=== PATIENT | male | born 1935 | race Caucasian/White ===

== ENCOUNTER 2017-12-06 17:51 | Inpatient (IN) | payer OTHER ==
[2017-12-06] MEDS ORDERED: dilTIAZem HCL 125 MG/25 ML - 25 ML VIAL ONE (18:15)
[2017-12-06] MEDS ORDERED: dilTIAZem HCL 50 MG/10 ML - 10 ML VIAL IVPUSH ONE (19:15)
[2017-12-06] MEDS ORDERED: dilTIAZem HCL 50 MG/10 ML - 10 ML VIAL ONE (19:20)
[2017-12-06] MEDS ORDERED: ACETAMINOPHEN 325 MG TABLET (FP) ONE (19:30)
[2017-12-06] MEDS ORDERED: ACETAMINOPHEN 500 MG TABLET (FP) PO ONE (19:31)
[2017-12-06] MEDS ORDERED: SODIUM CHLORIDE 1,000 ML IV STA (19:32)
--- NOTE | 2017-12-06 19:47 | PDOC ---
Attending Attestation - Resident Resident Name: Matheus Mcmahon - ED Attending Attestation I have performed the following: I have examined & evaluated the patient, The case was reviewed & discussed with the resident, I agree w/resident's findings & plan - HPI HPI: 12/07/17 20:09 Agree with resident exam - Physicial Exam PE: 12/06/17 20:21 Pt has 2+ pitting edema of legs bilaterally. Pt has coxsackie virus in the throat; he admits to odynophagia, and pt is warm to the touch, so we got a rectal temp that demonstrates fever 100.5F - Medical Decision Making 12/06/17 20:20 Pt has pleural effusions at the costophrenic angles. His Neutrophil count is high, but overall WBC not high Stool guaiac is negative; pt reports black stools; doesn't seem to be blood related. 12/06/17 20:22 Pt is getting hydrated and antipyretics; we gave a touch of IV dilt, but will wait for the other measures to kick in before we give more. 12/07/17 04:34 Pt's HR came down to 100-110bpm wiith hydration and antipyretics. We will hold off on further diltiazem. 12/07/17 04:35 Pt will be admitted for new onset atrial fibrillation
--- NOTE | 2017-12-06 19:57 | PDOC ---
History of Present Illness - General Chief Complaint: Tachycardia Stated Complaint: PALPITATIONS Time Seen by Provider: 12/06/17 19:10 History Source: Patient Exam Limitations: No Limitations - History of Present Illness Initial Comments: 12/06/17 19:52 Patient is an 82M with no significant medical history here today complaining of 2-3 weeks of weakness, shortness of breath, decreased exercise tolerance and diarrhea. He states that he's had chronic diarrhea since returning from [facility]. His daughter states that he does not frequently go to the doctor. He reports having associated edema in his legs bilaterally. He denies chest pain, palpitations. He does not remember feeling acutely worse in the past 48 hours. Denies blood in diarrhea. Endorses fevers, chills, cough. Patient was noted to have HR in 140s in triage, brought back to ED. Past History - Past Medical History Allergies/Adverse Reactions: Allergies Allergy/AdvReac Type Severity Reaction Status Date / Time No Known Allergies Allergy Verified 12/06/17 18:32 Home Medications: Ambulatory Orders NK [No Known Home Medication] 12/06/17 COPD: No - Suicide/Smoking/Psychosocial Hx Smoking History: Never smoked Review of Systems - Review of Systems Comments:: 12/06/17 19:59 GENERAL/CONSTITUTIONAL: Positive for fever or chills. No weakness. HEAD, EYES, EARS, NOSE AND THROAT: No change in vision. No sore throat. CARDIOVASCULAR: No chest pain. Positive for shortness of breath RESPIRATORY: Positive for cough. Negative for wheezing, or hemoptysis. GASTROINTESTINAL: No nausea, vomiting, diarrhea or constipation. GENITOURINARY: No dysuria, frequency, or change in urination. MUSCULOSKELETAL: No joint or muscle swelling or pain. No neck or back pain. SKIN: No rash NEUROLOGIC: No headache, vertigo, loss of consciousness, or change in strength/ sensation. ENDOCRINE: No increased thirst. Positive for 30 pound weight loss. HEMATOLOGIC/LYMPHATIC: No anemia, easy bleeding, or history of blood clots. ALLERGIC/IMMUNOLOGIC: No hives or skin allergy. *Physical Exam - Vital Signs Last Vital Signs Temp Pulse Resp BP Pulse Ox 97.7 F 138 H 22 102/77 99 12/06/17 18:30 12/06/17 19:14 12/06/17 19:14 12/06/17 19:14 12/06/17 19:14 - Physical Exam Comments: 12/06/17 20:00 GENERAL: Awake, alert, and fully oriented, in no acute distress HEAD: No signs of trauma, normocephalic, atraumatic EYES: PERRLA, EOMI, sclera anicteric, conjunctiva clear ENT: Auricles normal inspection, hearing grossly normal, nares patent, oropharynx clear without exudates. Dry mucosa NECK: Normal ROM, supple, no lymphadenopathy, JVD, or masses LUNGS: No distress, speaks full sentences, bilateral rales HEART: Regular rate and rhythm, normal S1 and S2, no murmurs, rubs or gallops, peripheral pulses normal and equal bilaterally. ABDOMEN: Soft, nontender, normoactive bowel sounds. No guarding, no rebound. No masses EXTREMITIES: Normal inspection, Normal range of motion, pitting edema bilaterally. No clubbing or cyanosis. NEUROLOGICAL: Cranial nerves II through XII grossly intact. Normal speech, no focal sensorimotor deficits SKIN: Warm, Dry, normal turgor, no rashes or lesions noted. ED Treatment Course - LABORATORY CBC & Chemistry Diagram: 12/06/17 19:34 12/06/17 19:34 - RADIOLOGY Radiology Studies Ordered: Category Date Time Status CHEST X-RAY PORTABLE* [RAD] Stat Radiology 12/06/17 19:15 Ordered DUPLEX VASCUL US-2LEGS [US] Stat Ultrasound 12/06/17 19:31 Ordered - Medications Given in the ED: ED Medications Discontinued Medications Generic Name Dose Route Start Last Admin Trade Name Freq PRN Reason Stop Dose Admin Acetaminophen 975 mg 12/06/17 19:31 12/06/17 19:46 Tylenol - PO 12/06/17 19:32 975 mg ONCE ONE Administration Medical Decision Making - Medical Decision Making 12/06/17 20:00 Patient is an 82M with no medical history, poor primary care, here today complaining of weakness, shortness of breath and edema. Vital signs notable for tachycardia, blood pressure stable, febrile too 100.5. Given tylenol, fluids. DDx is broad, and includes, but is not limited to: primary arrhythmia, CHF, pneumonia, PE, DVT. Will workup with cbc, cmp, trop, pt/inr, lactate, tsh, blood cultures, ua, uc, chest x-ray, d-dimer, dvt us. Given 5mg of diltiazem x2, no effect, BP systolic 90. 12/06/17 22:41 Patient's urine dark, believe patient was intravascularly dehydrated despite signs of fluid overload. Given 1L of NS. HR now down to 100s-110s. 12/06/17 22:43 Laboratory Tests 12/06/17 12/06/17 12/06/17 19:34 19:34 19:34 WBC 9.6 Hgb 10.9 L Hct 34.2 L Plt Count 287 D-Dimer 652 H Troponin I 0.06 H B-Natriuretic Peptide 90344.79 H Urine WBC (Auto) Urine RBC (Auto) Stool Occult Blood 12/06/17 12/06/17 19:49 20:56 WBC Hgb Hct Plt Count D-Dimer Troponin I B-Natriuretic Peptide Urine WBC (Auto) 4 Urine RBC (Auto) 3 Stool Occult Blood Negative CBC normal. Tropoinin indeterminate, BNP elevated to 14k. Stool for occult blood negative. CXR shows no acute cardiopulmonary process. 12/07/17 00:21 DVT US negative. *DC/Admit/Observation/Transfer Diagnosis at time of Disposition: Atrial fibrillation with RVR - Discharge Dispostion Condition at time of disposition: Stable Admit: Yes - Referrals Referrals: Devaughn Russ MD [Primary Care Provider] - - Patient Instructions - Post Discharge Activity
[2017-12-06 19:59] LABS: BASO % 0.1 % (0-2.0); HEMATOCRIT 34.2 % (35.4-49); HEMOGLOBIN 10.9 GM/dL (11.7-16.9); LYMPH % 2.4 % (8-40); MCH 26.7 pg (25.7-33.7); MCHC 31.9 g/dl (32.0-35.9); MEAN CELL VOLUME 83.6 fl (80-96); MEAN PLT VOLUME 8.4 fl (7.5-11.1); MONO % 7.6 % (3.8-10.2); NEUT % 89.9 % (42.8-82.8); PLATELET COUNT 287 K/MM3 (134-434); RBC 4.09 M/mm3 (4.00-5.60); RDW 18.9 % (11.9-15.9); WHITE BLOOD COUNT 9.6 K/mm3 (4.0-10.0)
[2017-12-06 20:13] LABS: INR 1.5 (0.82-1.09); PROTHROMBIN TIME (PATIENT) 16.9 SEC (9.98-11.88)
[2017-12-06 20:45] LABS: ALBUMIN 2.1 g/dl (3.4-5.0); ANION GAP 11 (8-16); BILIRUBIN,TOTAL 0.6 mg/dL (0.2-1.0); BLOOD UREA NITROGEN 18 mg/dL (7-18); CALCIUM 7.5 mg/dL (8.5-10.1); CHLORIDE 105 mmol/L (98-107); CO2 22 mmol/L (21-32); CREATININE 0.9 mg/dL (0.7-1.3); GLUCOSE,RANDOM 114 mg/dL (74-106); SGPT/ALT 19 U/L (12-78); SODIUM 138 mmol/L (136-145)
[2017-12-06 20:48] LABS: ALK PHOS 104 U/L (45-117); N-TERMINAL BNP 14106.79 pg/ml (5-450)
[2017-12-06 20:52] LABS: POTASSIUM 4.4 mmol/L (3.5-5.1)
[2017-12-06 20:53] LABS: SGOT/AST 8 U/L (15-37)
[2017-12-06 21:10] LABS: URINE APPEARANCE CLEAR; URINE COLOR AMBER; URINE GLUCOSE (UA) NEGATIVE (NEGATIVE); URINE KETONE TRACE (NEGATIVE); URINE LEUK ESTERASE NEGATIVE (NEGATIVE); URINE NITRITE NEGATIVE (NEGATIVE); URINE UROBILINOGEN 4.0 E.U/dl mg/dL (0.2-1.0)
[2017-12-06 21:18] LABS: URINE PROTEIN 1+ (NEGATIVE)
[2017-12-06 21:22] LABS: URINE BACTERIA RARE /hpf (NONE SEEN); URINE HYALINE CAST 3 /lpf; URINE MUCUS FEW
[2017-12-07] MEDS ORDERED: ACETAMINOPHEN 325 MG TABLET (FP) PO PRN (02:00)
[2017-12-07] MEDS ORDERED: dilTIAZem HCL 50 MG/10 ML - 10 ML VIAL IVPUSH ONE (02:04)
--- NOTE | 2017-12-07 02:27 | HP ---
CHIEF COMPLAINT: diarrhea PCP: Dr Jeb Cantor HISTORY OF PRESENT ILLNESS: The patient is a 82 year old male with no significant past medical history, not following PCP, that presents to the hospital today complaining of diarrhea that started 3 weeks ago when he was in [facility]. He came 10 days ago and continue to have multiple loose bowel movements. He also reports weakness. He denies sick contacts, changing dietary habits. In the emergency room he was found to have rapid atrial fibrillation and fever. He also endorses lower extremity swelling and SOB when walking or climbing stairs that is present for long time. The patient denies chest pain, palpitations, nausea, vomiting, headache, LOC. He denies dysuria, increased frequency, urgency. ER course was notable for: (1)EkG, Cardizem (2)CBC, CMP (3)CXR, US LE Recent Travel: yes, [facility] PAST MEDICAL HISTORY: none PAST SURGICAL HISTORY: surgical excision in the neck-doesn't remember the cause Social History: Smoking:no, quit 40 years ago Alcohol:occasionally Drugs: no Family History: N/A Allergies No Known Allergies Allergy (Verified 12/06/17 18:32) HOME MEDICATIONS: Home Medications Medication Instructions Recorded NK [No Known Home Medication] 12/06/17 REVIEW OF SYSTEMS CONSTITUTIONAL: generalized weakness Absent: fever, chills, diaphoresis, , malaise, loss of appetite, weight change HEENT: Absent: rhinorrhea, nasal congestion, throat pain, throat swelling, difficulty swallowing, mouth swelling, ear pain, eye pain, visual changes CARDIOVASCULAR: Absent: chest pain, syncope, palpitations, irregular heart rate, lightheadedness , peripheral edema RESPIRATORY: Absent: cough, shortness of breath, dyspnea with exertion, orthopnea, wheezing, stridor, hemoptysis GASTROINTESTINAL: Absent: abdominal pain, abdominal distension, nausea, vomiting, diarrhea, constipation, melena, hematochezia GENITOURINARY: Absent: dysuria, frequency, urgency, hesitancy, hematuria, flank pain, genital pain MUSCULOSKELETAL: Absent: myalgia, arthralgia, joint swelling, back pain, neck pain SKIN: Absent: rash, itching, pallor HEMATOLOGIC/IMMUNOLOGIC: Absent: easy bleeding, easy bruising, lymphadenopathy, frequent infections ENDOCRINE: Absent: unexplained weight gain, unexplained weight loss, heat intolerance, cold intolerance NEUROLOGIC: Absent: headache, focal weakness or paresthesias, dizziness, unsteady gait, seizure, mental status changes, bladder or bowel incontinence PSYCHIATRIC: Absent: anxiety, depression, suicidal or homicidal ideation, hallucinations. PHYSICAL EXAMINATION Vital Signs - 24 hr 12/06/17 12/06/17 12/06/17 18:30 18:47 19:14 Temperature 97.7 F Pulse Rate 144 H Pulse Rate [ 138 H Apical] Respiratory 20 22 Rate Blood Pressure 98/81 Blood Pressure 102/77 [Left Arm] O2 Sat by Pulse 99 95 99 Oximetry (%) 12/06/17 12/06/17 12/07/17 19:40 21:55 01:42 Temperature 100.5 F H Pulse Rate Pulse Rate [ 117 H Apical] Respiratory Rate Blood Pressure Blood Pressure [Left Arm] O2 Sat by Pulse 100 Oximetry (%) 12/07/17 01:57 Temperature Pulse Rate Pulse Rate [ Apical] Respiratory 18 Rate Blood Pressure Blood Pressure 99/69 [Left Arm] O2 Sat by Pulse 97 Oximetry (%) GENERAL: Awake, alert, and fully oriented, in no acute distress, cachectic. HEAD: Normal with no signs of trauma. EYES: Pupils equal, round and reactive to light, extraocular movements intact, sclera anicteric, conjunctiva clear. EARS, NOSE, THROAT: Ears normal, nares patent, oropharynx clear without exudates. Moist mucous membranes. NECK: Normal range of motion, supple without lymphadenopathy, JVD, or masses. LUNGS: Breath sounds equal, clear to auscultation bilaterally. No wheezes, and no crackles. No accessory muscle use. HEART: Irregular rate and rhythm, normal S1 and S2 without murmur, rub or gallop. ABDOMEN: Soft, nontender, not distended, normoactive bowel sounds, no guarding, no rebound, no masses. No hepatomegaly or splenomegaly. MUSCULOSKELETAL: Normal range of motion at all joints. No bony deformities or tenderness. No CVA tenderness. UPPER EXTREMITIES: 2+ pulses, warm, well-perfused. No cyanosis. No clubbing. No peripheral edema. LOWER EXTREMITIES: 2+ pulses, warm, well-perfused. No calf tenderness. 2+ peripheral edema. NEUROLOGICAL: Normal speech, no facial asymmetry. Gait not observed. PSYCHIATRIC: Cooperative. Good eye contact. Appropriate mood and affect. SKIN: Warm, dry, normal turgor, no rashes or lesions noted, normal capillary refill. Laboratory Results - last 24 hr 12/06/17 12/06/17 12/06/17 19:34 19:34 19:34 WBC 9.6 RBC 4.09 Hgb 10.9 L Hct 34.2 L MCV 83.6 MCH 26.7 MCHC 31.9 L RDW 18.9 H Plt Count 287 MPV 8.4 Neutrophils % 89.9 H Lymphocytes % 2.4 L Monocytes % 7.6 Eosinophils % 0.0 Basophils % 0.1 PT with INR 16.90 H INR 1.50 H D-Dimer Sodium 138 Potassium 4.4 Chloride 105 Carbon Dioxide 22 Anion Gap 11 BUN 18 Creatinine 0.9 Creat Clearance w eGFR > 60 Random Glucose 114 H Lactic Acid Calcium 7.5 L Magnesium 2.0 Total Bilirubin 0.6 AST 8 L ALT 19 Alkaline Phosphatase 104 Creatine Kinase 36 L Troponin I 0.06 H B-Natriuretic Peptide 01971.79 H Total Protein 6.0 L Albumin 2.1 L TSH 2.65 Urine Color Urine Appearance Urine pH Ur Specific [place] Urine Protein Urine Glucose (UA) Urine Ketones Urine Blood Urine Nitrite Urine Bilirubin Urine Urobilinogen Ur Leukocyte Esterase Urine WBC (Auto) Urine RBC (Auto) Urine Bacteria Hyaline Casts Urine Mucus Stool Occult Blood 12/06/17 12/06/17 12/06/17 19:34 19:49 20:10 WBC RBC Hgb Hct MCV MCH MCHC RDW Plt Count MPV Neutrophils % Lymphocytes % Monocytes % Eosinophils % Basophils % PT with INR INR D-Dimer 652 H Sodium Potassium Chloride Carbon Dioxide Anion Gap BUN Creatinine Creat Clearance w eGFR Random Glucose Lactic Acid Calcium Magnesium Total Bilirubin AST ALT Alkaline Phosphatase Creatine Kinase Troponin I B-Natriuretic Peptide Total Protein Albumin TSH Cancelled Urine Color Urine Appearance Urine pH Ur Specific [place] Urine Protein Urine Glucose (UA) Urine Ketones Urine Blood Urine Nitrite Urine Bilirubin Urine Urobilinogen Ur Leukocyte Esterase Urine WBC (Auto) Urine RBC (Auto) Urine Bacteria Hyaline Casts Urine Mucus Stool Occult Blood Negative 12/06/17 12/06/17 20:56 22:30 WBC RBC Hgb Hct MCV MCH MCHC RDW Plt Count MPV Neutrophils % Lymphocytes % Monocytes % Eosinophils % Basophils % PT with INR INR D-Dimer Sodium Potassium Chloride Carbon Dioxide Anion Gap BUN Creatinine Creat Clearance w eGFR Random Glucose Lactic Acid 1.9 Calcium Magnesium Total Bilirubin AST ALT Alkaline Phosphatase Creatine Kinase Troponin I B-Natriuretic Peptide Total Protein Albumin TSH Urine Color Ksenia Urine Appearance Clear Urine pH 5.0 Ur Specific [place] 1.023 Urine Protein 1+ H Urine Glucose (UA) Negative Urine Ketones Trace H Urine Blood Negative Urine Nitrite Negative Urine Bilirubin 2.0 Urine Urobilinogen 4.0 e.u/dl Ur Leukocyte Esterase Negative Urine WBC (Auto) 4 Urine RBC (Auto) 3 Urine Bacteria Rare Hyaline Casts 3 Urine Mucus Few Stool Occult Blood ASSESSMENT/PLAN: The patient is a 82 year old male with no significant past medical history, not following PCP, that presents to the hospital today complaining of diarrhea that started 3 weeks ago when he was in [facility]. He was found to have new onset of A.Fib. New onset of A.Fib: -BNP elevated [id number], trend troponins, first 0.1 -f/u ECHO -given Cardizem 10 mg IV x 2, -cont Metoprolol 100 mg ONCE, cont. 100 mg daily -EKG, repeat in AM -given 1 L of NS -cardiac monitoring -Cardiology-Dr Ochoa Diarrhea; -stool studies ordered -given NS 1 L, careful with elevated BNP and LE swelling LE swelling: -f/u ECHo and cardiology recommendations -US negative DVT PPX: -Heparin sq -scd F/E/N: no/no changes/regular diet Disposition: telemetry monitoring Problem List - Problem (1) Diarrhea Code(s): R19.7 - DIARRHEA, UNSPECIFIED (2) Swelling of lower extremity Code(s): M79.89 - OTHER SPECIFIED SOFT TISSUE DISORDERS (3) Atrial fibrillation with RVR Code(s): I48.91 - UNSPECIFIED ATRIAL FIBRILLATION Visit type - Emergency Visit Emergency Visit: Yes ED Registration Date: 12/07/17 Care time: The patient presented to the Emergency Department on the above date and was hospitalized for further evaluation of their emergent condition. - New Patient This patient is new to me today: Yes Date on this admission: 12/07/17 - Critical Care Critical Care patient: No Hospitalist Screening - Colonoscopy Questionnaire Colonoscopy Questionnaire: Colonoscopy Questionnaire - Patient: 50 - 75 years old and never had a screening colonoscopy: No History of colon or rectal polyps, or CA: No History of IBD, Crohn's disease or UC: No History of abdominal radiation therapy as a child: No - Relative: 1 with colon or rectal CA, or polyps at age 60 or younger: No Colon or rectal CA diagnosed at age 45 or younger: No Multiple relatives with colon or rectal CA: No - Outcome: Screening Result: Negative Screen
[2017-12-07 03:22] VITALS: BMI 20.9
--- NOTE | 2017-12-07 05:24 | PN ---
Teaching Attending Note Name of Resident: Eleonora Alvarenga ATTENDING PHYSICIAN STATEMENT I saw and evaluated the patient. I reviewed the resident's note and discussed the case with the resident. I agree with the resident's findings and plan as documented. SUBJECTIVE: OBJECTIVE: ASSESSMENT AND PLAN: 82 y/o male patient presented to the hospital with palpitations was found to have atrial fibrillation with RVR Rate control with metoprolol telemetey monitoring echocardiogram give patient IVP metoprlolol when in RVR cardiology consult c./w home medication anticoagulation with enoxaparin
[2017-12-07] MEDS ORDERED: ENOXAPARIN NA (PORCINE) 80 MG/0.8 ML DISP.SYRIN SQ SCH ×2 (06:00→22:00)
[2017-12-07 07:17] LABS: BASO % 0.1 % (0-2.0); HEMOGLOBIN 9.9 GM/dL (11.7-16.9); LYMPH % 5.3 % (8-40); MCH 27.3 pg (25.7-33.7); MCHC 33.1 g/dl (32.0-35.9); MEAN CELL VOLUME 82.6 fl (80-96); MEAN PLT VOLUME 8.4 fl (7.5-11.1); MONO % 9.9 % (3.8-10.2); NEUT % 84.7 % (42.8-82.8); PLATELET COUNT 208 K/MM3 (134-434); RBC 3.64 M/mm3 (4.00-5.60); RDW 18.3 % (11.9-15.9); WHITE BLOOD COUNT 8.9 K/mm3 (4.0-10.0)
[2017-12-07 08:02] LABS: CHLORIDE 106 mmol/L (98-107); POTASSIUM 3.9 mmol/L (3.5-5.1); SODIUM 138 mmol/L (136-145)
[2017-12-07 08:41] LABS: ALBUMIN 1.8 g/dl (3.4-5.0); ALK PHOS 89 U/L (45-117); ANION GAP 9 (8-16); BILIRUBIN,TOTAL 0.7 mg/dL (0.2-1.0); BLOOD UREA NITROGEN 19 mg/dL (7-18); CALCIUM 7.5 mg/dL (8.5-10.1); CHOLESTEROL 80 mg/dL (50-200); CO2 23 mmol/L (21-32); CREATININE 0.8 mg/dL (0.7-1.3); GLUCOSE,RANDOM 91 mg/dL (74-106); HDL CHOLESTEROL 23 mg/dL (40-60); SGOT/AST 5 U/L (15-37); SGPT/ALT 16 U/L (12-78); TOT PROT 5.2 g/dl (6.4-8.2); TRIGLYCERIDES 74 mg/dL (35-160)
[2017-12-07] MEDS ORDERED: HEPARIN NA (PORCINE) 5,000 UNITS/ML 1ML VIAL SQ SCH (10:00)
--- NOTE | 2017-12-07 10:51 | HOSP ---
Subjective - Review of Symptoms Subjective: c/o loose BM. has improvd since arrival. does not feeling "congestion" in his chest with non productive cough. endorses dysgucia for the past few months. denies CP, SOB, fever, chills, N/V, palpitations states his mother also has diarrhea which she was recently hospitalized for. did have colonoscopy 5 years ago and reports it as negative. Current Medications Generic Name Dose Route Start Last Admin Trade Name Freq PRN Reason Stop Dose Admin Acetaminophen 650 mg 12/07/17 02:00 Tylenol - PO Q6H PRN FEVER Enoxaparin Sodium 70 mg 12/07/17 06:00 12/07/17 05:38 Lovenox - SQ 70 mg BID STEWART Administration Metoprolol Succinate 100 mg 12/07/17 10:00 12/07/17 08:38 Toprol Xl - PO 100 mg DAILY STEWART Administration Last Vital Signs Temp Pulse Resp BP Pulse Ox 97.9 F 117 H 22 111/69 99 12/07/17 08:00 12/07/17 08:00 12/07/17 09:00 12/07/17 08:00 12/07/17 09:00 Intake & Output 12/04/17 12/05/17 12/06/17 12/07/17 23:59 23:59 23:59 23:59 Intake Total 120 Balance 120 Weight 140 lb 146 lb 3.2 oz General NAD, thin elderly man CV S1 s2 tachy irregular lungs CTA B/L no wheezing/rales/rhonchi Abdomen soft NT/ND normoactive BS, no rebound or guarding Extremities no pedal edema CBCD WBC 8.9 K/mm3 (4.0-10.0) 12/07/17 05:00 RBC 3.64 M/mm3 (4.00-5.60) L 12/07/17 05:00 Hgb 9.9 GM/dL (11.7-16.9) L 12/07/17 05:00 Hct 30.0 % (35.4-49) L 12/07/17 05:00 MCV 82.6 fl (80-96) 12/07/17 05:00 MCHC 33.1 g/dl (32.0-35.9) 12/07/17 05:00 RDW 18.3 % (11.9-15.9) H 12/07/17 05:00 Plt Count 208 K/MM3 (134-434) D 12/07/17 05:00 MPV 8.4 fl (7.5-11.1) 12/07/17 05:00 CMP Sodium 138 mmol/L (136-145) 12/07/17 05:00 Potassium 3.9 mmol/L (3.5-5.1) 12/07/17 05:00 Chloride 106 mmol/L (98-107) 12/07/17 05:00 Carbon Dioxide 23 mmol/L (21-32) 12/07/17 05:00 Anion Gap 9 (8-16) 12/07/17 05:00 BUN 19 mg/dL (7-18) H 12/07/17 05:00 Creatinine 0.8 mg/dL (0.7-1.3) 12/07/17 05:00 Creat Clearance w eGFR > 60 (>60) 12/07/17 05:00 Calcium 7.5 mg/dL (8.5-10.1) L 12/07/17 05:00 Total Bilirubin 0.7 mg/dL (0.2-1.0) 12/07/17 05:00 AST 5 U/L (15-37) L D 12/07/17 05:00 ALT 16 U/L (12-78) 12/07/17 05:00 Alkaline Phosphatase 89 U/L (45-117) 12/07/17 05:00 Total Protein 5.2 g/dl (6.4-8.2) L 12/07/17 05:00 Albumin 1.8 g/dl (3.4-5.0) L 12/07/17 05:00 Microbiology 12/07/17 03:35 Influenza Types A,B Antigen (LUIS) - Final Nasopharyngeal Swab - Final A/P 82yo M with no PMH but has not seen PMD in several years presented iwth diarrhea and LE swelling for 3 weeks and found to be in afib with RVR in the ER 1. Afib with RVR- possible induced from infection although can not r/o ischemia.cont cardiac monitoring. flat trend of tropinins. s/p dilt 10mg IVP x2 and started on metoprolol 100mg XL. continues to have short bursts >135. will switch metoprolol to short acting 100mg BID, metoprolol 5mg IVP prn HR >120 and titrate to optimzie control. [id number] 2 (with current information) cont full dose lovenox. counselled on risks assoc with anticoagulation and risk of bleeding. if needed [facility] can transition to NOAC. f/u echo. pending results may need ischemia eval. cardio consulted 2. Diarrhea- liekly viral gastroenteritis as recently in [facility] and sick contacts. Tm100.5. no leukocytosis. stool studies sent. supportive care. judicious use of IVF if needed as high suspicion for CHF 3. Dysgucia- start zinc sulfate 4. LE swelling- possible CHF. now resolved. Echo pending. doppler neg for DVT 5. Normocytic anemia- some dilutional component. check iron studies. FOBT negative. no indication for txn 6. DVT ppx- hep sq 7. spoke with granddaughter present at bedside. all questions answered. verbalized understanding and agreement with plan. Physical Examination Vital Signs: Vital Signs Temperature 97.9 F 12/07/17 08:00 Pulse Rate 117 H 12/07/17 08:00 Respiratory Rate 22 12/07/17 09:00 Blood Pressure 111/69 12/07/17 08:00 O2 Sat by Pulse Oximetry (%) 99 12/07/17 09:00 Labs: CBC, BMP 12/07/17 05:00 12/07/17 05:00
[2017-12-07] MEDS ORDERED: METOPROLOL TARTRATE 5 MG/5 ML VIAL IVPUSH PRN (11:30)
--- NOTE | 2017-12-07 11:37 | EKG ---
Test Reason : Blood Pressure : / mmHG Vent. Rate : 145 BPM Atrial Rate : 098 BPM P-R Int : 000 ms QRS Dur : 126 ms QT Int : 298 ms P-R-T Axes : 000 -80 002 degrees QTc Int : 462 ms ATRIAL FIBRILLATION WITH RAPID VENTRICULAR RESPONSE WITH PREMATURE VENTRICULAR OR ABERRANTLY CONDUCTED COMPLEXES LEFT AXIS DEVIATION RIGHT BUNDLE BRANCH BLOCK INFERIOR INFARCT , AGE UNDETERMINED ABNORMAL ECG WHEN COMPARED WITH ECG OF 15-JAN-2004 10:06, ATRIAL FIBRILLATION HAS REPLACED SINUS RHYTHM VENT. RATE HAS INCREASED BY 83 BPM T WAVE INVERSION NOW EVIDENT IN ANTERIOR LEADS Confirmed by JOAN COLON MD ([id number]) on 12/07/2017 11:37:02 AM Referred By: Confirmed By:JOAN COLON MD
--- NOTE | 2017-12-07 11:37 | EKG ---
Test Reason : Blood Pressure : / mmHG Vent. Rate : 115 BPM Atrial Rate : 090 BPM P-R Int : 000 ms QRS Dur : 136 ms QT Int : 358 ms P-R-T Axes : 000 -70 -10 degrees QTc Int : 495 ms ATRIAL FIBRILLATION WITH RAPID VENTRICULAR RESPONSE LEFT AXIS DEVIATION RIGHT BUNDLE BRANCH BLOCK INFERIOR INFARCT (CITED ON OR BEFORE 06-DEC-2017) ABNORMAL ECG WHEN COMPARED WITH ECG OF 06-DEC-2017 18:15, NO SIGNIFICANT CHANGE WAS FOUND Confirmed by JOAN COLON MD ([id number]) on 12/07/2017 11:37:20 AM Referred By: Bgig CHISHOLM Confirmed By:JOAN COLON MD
--- NOTE | 2017-12-07 11:41 | CON.CARD ---
Consult Consult Specialty:: Cardiology (covering for Drs. Currie and Don) Referred by:: Hospitalist Reason for Consultation:: Cardiac evaluation - History of Present Illness Chief Complaint: Atrial fibrillation with RVR History of Present Illness: Patient is an 82 year old male of descent with no significant past medical history (patient had not been to a doctor for many years) and does not take any medications who presents with palpitations and presence of atrial fibrillation with RVR and underlying RBBB. He denies hypertension, diabetes mellitus, bronchial asthma or prior history of cerebrovascular disease. He denies chest pain, shortness of breath or palpitations. He denies paroxysmal nocturnal dyspnea or orthopnea. He denies fever or chills. He denies nausea, vomiting, diarrhea or abdominal pain. He denies headache or lightheadedness. - History Source History Provided By: Patient, Family Member, Medical Record Limitations to Obtaining History: No Limitations - Past Surgical History Additional Surgical History: Cyst removal from his throat - Alcohol/Substance Use Hx Alcohol Use: No History of Substance Use: reports: None - Smoking History Smoking history: Former smoker Home Medications - Allergies Allergies/Adverse Reactions: Allergies Allergy/AdvReac Type Severity Reaction Status Date / Time No Known Allergies Allergy Verified 12/06/17 18:32 - Home Medications Home Medications: Ambulatory Orders NK [No Known Home Medication] 12/06/17 Family Disease History - Family Disease History Family History: Unable to Obtain Review of Systems - Review of Systems Constitutional: denies: Chills, Fever Cardiovascular: reports: Palpitations. denies: Chest Pain, Shortness of Breath Respiratory: denies: Cough, Hemoptysis, Orthopnea, PND, SOB, SOB on Exertion Gastrointestinal: denies: Abdominal Pain, Constipation, Diarrhea, Melena, Nausea , Rectal Bleeding, Vomiting Genitourinary: denies: Dysuria, Hematuria Musculoskeletal: reports: No Symptoms Neurological: denies: Dizziness, Headache, Seizure, Syncope Vital Signs: Vital Signs Temperature 97.9 F 12/07/17 08:00 Pulse Rate 117 H 12/07/17 08:00 Respiratory Rate 22 12/07/17 09:00 Blood Pressure 111/69 12/07/17 08:00 O2 Sat by Pulse Oximetry (%) 99 12/07/17 09:00 Eyes: Yes: PERRL HENT: Yes: Atraumatic Neck: Yes: Supple Respiratory: Yes: Diminished Gastrointestinal: Yes: Normal Bowel Sounds, Soft. No: Tenderness Cardiovascular: Yes: Tachycardia, Pulse Irregular JVD: No Carotid Bruit: No PMI: Non-Displaced Heart Sounds: Yes: S1, S2. No: Gallop Edema: No - Other Data Labs, Other Data: CBC, BMP 12/07/17 05:00 12/07/17 05:00 INR, PTT INR 1.50 (0.82-1.09) H 12/06/17 19:34 Troponin, BNP 12/06/17 12/07/17 12/07/17 19:34 02:00 05:00 Troponin I 0.06 H 0.05 0.04 B-Natriuretic Peptide 59977.79 H 12/07/17 09:00 Troponin I 0.04 B-Natriuretic Peptide Imaging - Results Chest X-ray: Report Reviewed (Large heart, atelectasis) EKG: Report Reviewed Problem List - Problems (1) Abnormal ECG Code(s): R94.31 - ABNORMAL ELECTROCARDIOGRAM [ECG] [EKG] (2) Right bundle branch block (RBBB) Code(s): I45.10 - UNSPECIFIED RIGHT BUNDLE-BRANCH BLOCK (3) Anemia Code(s): D64.9 - ANEMIA, UNSPECIFIED (4) Atrial fibrillation with RVR Code(s): I48.91 - UNSPECIFIED ATRIAL FIBRILLATION Assessment/Plan 1. New onset atrial fibrillation with RVR, [id number] score at least 2+ (in view of his age) 2. Elevated BNP and demand ischemia (troponin of 0.06) may be due to LV failure in the presence of rapid ventricular response 3. Abnormal ECG with RBBB 4. Anemia PLAN: 1. Consider NOAC - Eliquis 5 mg BID. In the interim Heparin drip instead of Lovenox 2. Continue Metoprolol and titrated dose for rate control 3. Transthoracic echocardiography to assess LV/RV and valvular function 4. Monitor CBC closely Further plans are to follow Chicho Vasquez MD
[2017-12-07] MEDS: ZINC SULFATE 220 MG CAPSULE (FP) PO SCH (12:05)
[2017-12-07] MEDS ORDERED: HEPARIN NA (PORCINE) 5,000 UNITS/ML 1ML VIAL IVPUSH PRN ×2 (16:46)
[2017-12-07] MEDS: METOPROLOL TARTRATE 50 MG TABLET (FP) PO SCH (21:37)
[2017-12-07] MEDS ORDERED: HEPARIN INFUSION - 25,000 UNITS/500 ML INFUS.BAG IVPB SCH (22:00)
--- NOTE | 2017-12-08 07:42 | PN ---
Physical Exam: SUBJECTIVE: Patient seen and examined by me this AM - BP 90s systolic this AM, afib w/ RVR to 150s on tele noted; Pt endorses no appetite, 5-6x diarrhea overnight and this AM, watery with no blood; Endorses persistent dry cough, odynophagia with eating; denies f/c/n/v, chest pain, SOB, JENKINS, vision changes, palpitations, ab pain, back pain; States LE edema improving OBJECTIVE: Vital Signs Intake & Output 12/05/17 12/06/17 12/07/17 12/08/17 23:59 23:59 23:59 23:59 Intake Total 340 128 Balance 340 128 Weight 63.503 kg 66.315 kg Period Temp Pulse Resp BP Sys/Slaughter Pulse Ox Last 24 Hr 97.5 F-98.4 F 110-134 18-22 100-111/56-75 99-99 GENERAL: Elderly man, NAD, cachectic HEAD: NCAT, alopecia EYES: PERRL, extraocular movements intact, sclera anicteric, conjunctiva clear. No ptosis. ENT: Ears normal, nares patent, oropharynx clear without exudates, moist mucous membranes. NECK: Trachea midline, full range of motion, supple. LUNGS: Bibasilar crackles, no wheezes or rhonchi HEART: IRR IRR, no m/c/g/r ABDOMEN: Soft, nontender, nondistended, normoactive bowel sounds, no guarding, no rebound, no hepatosplenomegaly, no masses. No CVA tenderness EXTREMITIES: 2+ pulses, warm, well-perfused, 2+ pitting edema to midshank NEUROLOGICAL: Cranial nerves II through XII grossly intact. Normal speech, gait not observed. PSYCH: Normal mood, normal affect. SKIN: Warm, dry, normal turgor, no rashes or lesions noted Laboratory Results - last 24 hr CBC, BMP 12/08/17 06:00 12/08/17 06:00 12/07/17 12/07/17 12/07/17 05:00 05:00 09:00 PTT (Actin FS) Sodium 138 Potassium 3.9 Chloride 106 Carbon Dioxide 23 Anion Gap 9 BUN 19 H Creatinine 0.8 Creat Clearance w eGFR > 60 Random Glucose 91 D Calcium 7.5 L Total Bilirubin 0.7 AST 5 L D ALT 16 Alkaline Phosphatase 89 Troponin I 0.04 0.04 Total Protein 5.2 L Albumin 1.8 L Triglycerides 74 Cholesterol 80 Total LDL Cholesterol 52 HDL Cholesterol 23 L 12/07/17 19:34 PTT (Actin FS) 55.7 H Sodium Potassium Chloride Carbon Dioxide Anion Gap BUN Creatinine Creat Clearance w eGFR Random Glucose Calcium Total Bilirubin AST ALT Alkaline Phosphatase Troponin I Total Protein Albumin Triglycerides Cholesterol Total LDL Cholesterol HDL Cholesterol Active Medications Generic Name Dose Route Start Last Admin Trade Name Freq PRN Reason Stop Dose Admin Acetaminophen 650 mg 12/07/17 02:00 Tylenol - PO Q6H PRN FEVER Heparin Sodium (Porcine) 1,000 unit 12/07/17 16:46 Heparin - IVPUSH PRN PRN Heparin Heparin Sodium (Porcine) 5,000 unit 12/07/17 16:46 Heparin - IVPUSH PRN PRN Heparin Heparin Sodium/Dextrose 25,000 units in 500 mls @ 16 mls/hr 12/07/17 22:00 23:20 Heparin Infusion - IVPB 800 units/hr TITR STEWART 16 mls/hr Protocol Administration 800 UNITS/HR Metoprolol Tartrate 100 mg 12/07/17 22:00 12/07/17 21:37 Lopressor - PO 100 mg BID STEWART Administration Metoprolol Tartrate 5 mg 12/07/17 11:30 12/07/17 17:45 Lopressor Injection - IVPUSH 5 mg Q4H PRN Administration TACHYCARDIA Zinc Sulfate 220 mg 12/07/17 11:45 12/07/17 12:05 Orazinc - PO 220 mg DAILY STEWART Administration Microbiology Stool O+P pending, bacterial GE panel pending 12/06/17 22:30 Blood - Peripheral Venous Blood Culture - Preliminary NO GROWTH OBTAINED AFTER 24 HOURS, INCUBATION TO CONTINUE FOR 4 DAYS. 12/06/17 22:30 Blood - Peripheral Venous Blood Culture - Preliminary NO GROWTH OBTAINED AFTER 24 HOURS, INCUBATION TO CONTINUE FOR 4 DAYS. 12/07/17 03:35 Nasopharyngeal Swab Influenza Types A,B Antigen (LUIS) - Final 12/07/17 03:35 Nasopharyngeal Swab - Final CXR 12/06 - Imaging reveals a large heart, sclerotic knob, clips by the thoracic inlet, right base granuloma and some atelectasis with pleural reaction at the left base. There may be some left hilar calcifications. A discrete infiltrate or pneumothorax is not seen. There are degenerative changes. The soft tissues are intact. Follow-up recommended. LE duplex 12/06 - IMPRESSION: No evidence of deep vein thrombosis as above. ASSESSMENT/PLAN: The patient is a 82 year old male with no significant past medical history, not following PCP, that presents to the hospital today complaining of diarrhea that started 3 weeks ago when he was in [facility]. He was found to have new onset of A.Fib. 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 #CHF secondary to afib - BNP 86556 on presentation; clinically volume overloaded - PO hydration - Strict Is and Os - Cardiology following - monitor UOP, volume status #Diarrhea- still w/ diarrhea overnight; likely viral; recent hx of sick contact and travel to [facility] -f/u stool studies -PO hydration - beside commode - started on loperamide #dysgucia/dysphagia - decreased PO intake; negative colonoscopy and 30 Lb loss over past month; no oropharyngeal lesions noted on exam - c/w zinc sulfate - 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 Milton Tam, PGY1 Visit type - Emergency Visit Emergency Visit: Yes ED Registration Date: 12/07/17 Care time: The patient presented to the Emergency Department on the above date and was hospitalized for further evaluation of their emergent condition. - New Patient This patient is new to me today: Yes Date on this admission: 12/07/17 - Critical Care Critical Care patient: No - Discharge Referral Referred to [facility] Med P.C.: No
[2017-12-08 08:24] LABS: BASO % 0.1 % (0-2.0); HEMATOCRIT 33.3 % (35.4-49); HEMOGLOBIN 10.8 GM/dL (11.7-16.9); LYMPH % 7.8 % (8-40); MCH 26.7 pg (25.7-33.7); MCHC 32.3 g/dl (32.0-35.9); MEAN CELL VOLUME 82.7 fl (80-96); MEAN PLT VOLUME 8.6 fl (7.5-11.1); MONO % 9.2 % (3.8-10.2); NEUT % 82.9 % (42.8-82.8); PLATELET COUNT 244 K/MM3 (134-434); RBC 4.03 M/mm3 (4.00-5.60); RDW 18.9 % (11.9-15.9); WHITE BLOOD COUNT 7.8 K/mm3 (4.0-10.0)
[2017-12-08 08:30] LABS: ANION GAP 8 (8-16); BLOOD UREA NITROGEN 17 mg/dL (7-18); CALCIUM 7.3 mg/dL (8.5-10.1); CHLORIDE 107 mmol/L (98-107); CO2 24 mmol/L (21-32); GLUCOSE,RANDOM 89 mg/dL (74-106); MAGNESIUM 2.1 mg/dL (1.8-2.4); POTASSIUM 4.2 mmol/L (3.5-5.1); SODIUM 139 mmol/L (136-145)
[2017-12-08 08:31] LABS: CREATININE 0.8 mg/dL (0.7-1.3); PHOSPHOROUS 3.2 mg/dL (2.5-4.9)
[2017-12-08] MEDS: ZINC SULFATE 220 MG CAPSULE (FP) PO SCH (09:28)
[2017-12-08] MEDS: METOPROLOL TARTRATE 50 MG TABLET (FP) PO SCH ×3 (09:28→21:50)
[2017-12-08] MEDS ORDERED: HEPARIN NA (PORCINE) 5,000 UNITS/ML 1ML VIAL SQ SCH (10:00)
--- NOTE | 2017-12-08 10:06 | PN ---
Progress Note, Physician Chief Complaint: AF persists with RVR in 120s History of Present Illness: Patient was seen and examined. Awake and alert. Chart was reviewed Denies chest pain, SOB or palpitations - Current Medication List Current Medications: Active Medications Acetaminophen (Tylenol -) 650 mg PO Q6H PRN PRN Reason: FEVER Heparin Sodium (Porcine) (Heparin -) 1,000 unit IVPUSH PRN PRN PRN Reason: Heparin Heparin Sodium (Porcine) (Heparin -) 5,000 unit IVPUSH PRN PRN PRN Reason: Heparin Heparin Sodium/Dextrose (Heparin Infusion -) 25,000 units in 500 mls @ 16 mls/ hr IVPB TITR STEWART; 800 UNITS/HR PRN Reason: Protocol Last Titration: 12/08/17 09:31 Dose: 700 units/hr, 14 mls/hr Metoprolol Tartrate (Lopressor -) 100 mg PO BID [facility] Last Admin: 12/08/17 09:28 Dose: Not Given Metoprolol Tartrate (Lopressor Injection -) 5 mg IVPUSH Q4H PRN PRN Reason: TACHYCARDIA Last Admin: 12/07/17 17:45 Dose: 5 mg Zinc Sulfate (Orazinc -) 220 mg PO DAILY [facility] Last Admin: 12/08/17 09:28 Dose: 220 mg - Objective Vital Signs: Vital Signs Temperature 97.5 F L 12/08/17 06:00 Pulse Rate 118 H 12/08/17 06:00 Respiratory Rate 20 12/08/17 06:00 Blood Pressure 103/70 12/08/17 06:00 O2 Sat by Pulse Oximetry (%) 99 12/07/17 21:00 HENT: Yes: Atraumatic Neck: Yes: Supple Cardiovascular: Yes: Tachycardia, Pulse Irregular, S1, S2 Respiratory: Yes: CTA Bilaterally Gastrointestinal: Yes: Normal Bowel Sounds, Soft. No: Tenderness Edema: No Additional Findings/Remarks: - Review of Systems Constitutional: denies: Chills, Fever Cardiovascular: reports: Palpitations. denies: Chest Pain, Shortness of Breath Respiratory: denies: Cough, Hemoptysis, Orthopnea, PND, SOB, SOB on Exertion Gastrointestinal: denies: Abdominal Pain, Constipation, Diarrhea, Melena, Nausea , Rectal Bleeding, Vomiting Genitourinary: denies: Dysuria, Hematuria Musculoskeletal: reports: No Symptoms Neurological: denies: Dizziness, Headache, Seizure, Syncope Labs: CBC, BMP 12/08/17 06:00 12/08/17 06:00 INR, PTT INR 1.50 (0.82-1.09) H 12/06/17 19:34 Problem List - Problems (1) Abnormal ECG Code(s): R94.31 - ABNORMAL ELECTROCARDIOGRAM [ECG] [EKG] (2) Right bundle branch block (RBBB) Code(s): I45.10 - UNSPECIFIED RIGHT BUNDLE-BRANCH BLOCK (3) Anemia Code(s): D64.9 - ANEMIA, UNSPECIFIED (4) Atrial fibrillation with RVR Code(s): I48.91 - UNSPECIFIED ATRIAL FIBRILLATION Assessment/Plan 1. New onset atrial fibrillation with RVR, [id number] score at least 2+ (in view of his age) 2. Elevated BNP and demand ischemia (troponin of 0.06) may be due to LV failure in the presence of rapid ventricular response 3. Abnormal ECG with RBBB 4. Anemia PLAN: 1. Start Eliquis 5 mg BID and then stop Heparin drip 2. Continue Metoprolol and titrated dose for rate control - add Cardizem for added rate control as BP tolerates. Small dose of Digoxin may be given if remains tachycardic 3. Transthoracic echocardiography to assess LV/RV and valvular function 4. Monitor CBC closely Further plans are to follow Chicho Vasquez MD
--- NOTE | 2017-12-08 10:18 | PN ---
Teaching Attending Note Name of Resident: Saurav Tam ATTENDING PHYSICIAN STATEMENT I saw and evaluated the patient. I reviewed the resident's note and discussed the case with the resident. I agree with the resident's findings and plan as documented. SUBJECTIVE:c/o dysphagia to both solids and liquids. states he has had 30lb weight loss over the past month. assoc with dysgucia. denies CP, SOB, fever, chills, palpitations, N/V/. 2 loose BM this AM OBJECTIVE: Last Vital Signs Temp Pulse Resp BP Pulse Ox 97.5 F L 118 H 20 103/70 99 12/08/17 06:00 12/08/17 06:00 12/08/17 06:00 12/08/17 06:00 12/07/17 21:00 General NAD HEENT no throat tenderness, difficulty visualizing pharynx but no erythema or exudates can be appreciate. white coating on the tongue does not scrape CV S1 S2 tachycardic irregular lungsCTA B/L no wheezing/rales/rhjonchi Abdomen soft NT/ND ASSESSMENT AND PLAN: 82yo M with no PMH but has not seen PMD in several years presented iwth diarrhea and LE swelling for 3 weeks and found to be in afib with RVR in the ER 1. Afib with RVR- possible induced from infection although can not r/o ischemia.cont cardiac monitoring. HR uncontrolled 110-135. metoprolol dose held this AM. will give with parameters of holding for SBP < 90. will consider cardizem po if does not improve. on hep ggt. will transition to NOAC prior to discharge. echo pending. cardio on board an discussed plan. 2. Diarrhea- liekly viral gastroenteritis as recently in [facility] and sick contacts. afebrile, no leukcoytosis. Cx pending. will give loperamide prn. low suspicion for cdiff. 3. 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 consult GI for possible EGD. 4. LE swelling- possible CHF. now resolved. Echo pending. doppler neg for DVT 5. Normocytic anemia- some dilutional component. Hgb improved. iron studies pending. FOBT negative. no indication for txn 6. DVT ppx- hep sq
[2017-12-08] MEDS ORDERED: SODIUM CHLORIDE 1,000 ML IV SCH (11:15)
[2017-12-08] MEDS ORDERED: LOPERAMIDE HCL 2 MG CAPSULE PO ONE (12:15)
[2017-12-08] MEDS: APIXABAN 5 MG TABLET PO SCH ×2 (13:44→21:50)
[2017-12-08] MEDS: dilTIAZem HCL 30 MG TABLET (FP) PO SCH ×2 (13:44→21:50)
[2017-12-08] MEDS ORDERED: METOPROLOL TARTRATE 50 MG TABLET (FP) PO SCH (16:09)
[2017-12-08] MEDS ORDERED: DIGOXIN 0.5 MG/2 ML AMPUL IVPUSH ONE (19:06)
[2017-12-09] MEDS: LOPERAMIDE HCL 2 MG CAPSULE PO PRN ×2 (01:50→15:58)
--- NOTE | 2017-12-09 06:04 | PN ---
Physical Exam: SUBJECTIVE: Patient seen and examined by me this AM - Per nursing, trace blood noted in diarrhea overnight; Denies f/c/n/v, CP, ab pain, JENKINS/lightheadness; 2 episodes of diarrhea; poor appetite, but ate some soup ; endorses mild weakness, tightness in back OBJECTIVE: Vital Signs Intake & Output 12/06/17 12/07/17 12/08/17 12/09/17 23:59 23:59 23:59 23:59 Intake Total 340 188 Balance 340 188 Weight 63.503 kg 66.315 kg Period Temp Pulse Resp BP Sys/Slaughter Pulse Ox Last 24 Hr 97.4 F-98.7 F 81-125 18-20 93-99/46-78 96-99 GENERAL: Elderly man, NAD, cachectic HEAD: NCAT, alopecia EYES: PERRL, extraocular movements intact, sclera anicteric, conjunctiva clear. No ptosis. ENT: Dry plaques no tongue. No erythema or injections. Ears normal, nares patent , oropharynx clear without exudates, moist mucous membranes. NECK: Trachea midline, full range of motion, supple. LUNGS: Trace bibasilar crackles, no wheezes or rhonchi HEART: IRR IRR, no m/c/g/r ABDOMEN: Soft, nontender, nondistended, normoactive bowel sounds, no guarding, no rebound, no hepatosplenomegaly, no masses. No CVA tenderness EXTREMITIES: 2+ pulses, warm, well-perfused, 2+ pitting pedal edema NEUROLOGICAL: Cranial nerves II through XII grossly intact. Normal speech, gait not observed. PSYCH: Normal mood, normal affect. SKIN: Warm, dry, normal turgor, no rashes or lesions noted Laboratory Results - last 24 hr CBC, BMP 12/09/17 06:00 12/09/17 06:00 12/08/17 06:00 12/08/17 06:00 12/08/17 12/08/17 12/08/17 06:00 06:00 06:00 WBC 7.8 RBC 4.03 Hgb 10.8 L Hct 33.3 L MCV 82.7 MCH 26.7 MCHC 32.3 RDW 18.9 H Plt Count 244 MPV 8.6 Neutrophils % 82.9 H Lymphocytes % 7.8 L D Monocytes % 9.2 Eosinophils % 0.0 Basophils % 0.1 PTT (Actin FS) Sodium 139 Potassium 4.2 Chloride 107 Carbon Dioxide 24 Anion Gap 8 BUN 17 Creatinine 0.8 Random Glucose 89 Calcium 7.3 L Phosphorus 3.2 Magnesium 2.1 Ferritin 53.392 Cancelled Troponin I 0.03 12/08/17 12/08/17 12/08/17 06:00 10:00 15:48 WBC RBC Hgb Hct MCV MCH MCHC RDW Plt Count MPV Neutrophils % Lymphocytes % Monocytes % Eosinophils % Basophils % PTT (Actin FS) 86.5 H D 54.9 H D Sodium Potassium Chloride Carbon Dioxide Anion Gap BUN Creatinine Random Glucose Calcium Phosphorus Magnesium Ferritin Troponin I Cancelled Active Medications Generic Name Dose Route Start Last Admin Trade Name Freq PRN Reason Stop Dose Admin Acetaminophen 650 mg 12/07/17 02:00 Tylenol - PO Q6H PRN FEVER Apixaban 5 mg 12/08/17 12:15 12/08/17 21:50 Eliquis - PO 5 mg BID STEWART Administration Diltiazem HCl 30 mg 12/08/17 14:00 12/08/17 21:50 Cardizem - PO 30 mg TID STEWART Administration Sodium Chloride 1,000 mls @ 50 mls/hr 12/08/17 11:15 12/08/17 11:44 Normal Saline - IV 12/09/17 11:04 50 mls/hr ASDIR STEWART Administration Loperamide HCl 2 mg 12/08/17 11:02 12/09/17 01:50 Imodium - PO 2 mg Q8H PRN Administration DIARRHEA Metoprolol Tartrate 5 mg 12/07/17 11:30 12/07/17 17:45 Lopressor Injection - IVPUSH 5 mg Q4H PRN Administration TACHYCARDIA Metoprolol Tartrate 100 mg 12/08/17 22:00 12/08/17 21:50 Lopressor - PO 100 mg BID STEWART Administration Zinc Sulfate 220 mg 12/07/17 11:45 12/08/17 09:28 Orazinc - PO 220 mg DAILY STEWART Administration Microbiology 12/06/17 22:30 Blood - Peripheral Venous Blood Culture - Preliminary NO GROWTH OBTAINED AFTER 48 HOURS, INCUBATION TO CONTINUE FOR 3 DAYS. 12/06/17 22:30 Blood - Peripheral Venous Blood Culture - Preliminary NO GROWTH OBTAINED AFTER 48 HOURS, INCUBATION TO CONTINUE FOR 3 DAYS. 12/07/17 08:00 Stool Salmonella/Shigella Culture - Preliminary NO ENTERIC PATHOGENS, 24 HOURS, ON PRIMARY PLATES 12/07/17 08:00 Stool Yersinia Culture - Preliminary NO ENTERIC PATHOGENS, 24 HOURS, ON PRIMARY PLATES 12/07/17 08:00 Stool Vibrio Culture - Preliminary NO ENTERIC PATHOGENS, 24 HOURS, ON PRIMARY PLATES 12/07/17 08:00 Stool Escherichia coli 0157 Culture - Preliminary NO ENTERIC PATHOGENS, 24 HOURS, ON PRIMARY PLATES 12/06/17 20:56 Urine - Urine Clean Catch Urine Culture - Final Contaminated: Please Repeat 12/07/17 03:35 Nasopharyngeal Swab Influenza Types A,B Antigen (LUIS) - Final 12/07/17 03:35 Nasopharyngeal Swab - Final 12/06/17 22:30 Blood - Peripheral Venous Blood Culture - Preliminary NO GROWTH OBTAINED AFTER 24 HOURS, INCUBATION TO CONTINUE FOR 4 DAYS. 12/06/17 22:30 Blood - Peripheral Venous Blood Culture - Preliminary NO GROWTH OBTAINED AFTER 24 HOURS, INCUBATION TO CONTINUE FOR 4 DAYS. 12/07/17 03:35 Nasopharyngeal Swab Influenza Types A,B Antigen (LUIS) - Final 12/07/17 03:35 Nasopharyngeal Swab - Final CXR 12/06 - Imaging reveals a large heart, sclerotic knob, clips by the thoracic inlet, right base granuloma and some atelectasis with pleural reaction at the left base. There may be some left hilar calcifications. A discrete infiltrate or pneumothorax is not seen. There are degenerative changes. The soft tissues are intact. Follow-up recommended. LE duplex 12/06 - IMPRESSION: No evidence of deep vein thrombosis as above. ASSESSMENT/PLAN: The patient is a 82 year old male with no significant past medical history, not following PCP, that presents to the hospital today complaining of diarrhea that started 3 weeks ago when he was in [facility]. He was found to have new onset of AFib. 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; hold for now w/ possible GI bleed #CHF secondary to afib - BNP 56909 on presentation; clinically volume overloaded - PO hydration - Strict Is and Os - Cardiology following - monitor UOP, volume status #Diarrhea- Less diarrhea overnight; likely viral; recent hx of sick contact and travel to [facility] -f/u stool studies; negative to date -PO hydration - beside commode - c/w loperamide #dysgucia/dysphagia - decreased PO intake; negative colonoscopy and 30 Lb loss over past month; no oropharyngeal lesions noted on exam - c/w zinc sulfate - encourage PO intake - Nutrition eval - Plan for EGD/colonoscopy after infectious etiology of diarrhea ruled-out to assess for inflammatory pathology and/or malignancy considering anemia, GI bleed and 30lb wt loss over last month - bowel prep tomorrow if HR well controlled for scope with GI #normocytic anemia - likely dilutional; FOBT negative; iron deficiency anemia - iron 9, TIBC 116, low iron sat, normal ferritin - ferrous sulfate PO - IV venofer for 5 day course - FOBT + - Repeat colonoscopy as inpt - repeat iron studies in 3 months as outpt #LE swelling- LE duplex negative; echo pending -secondary to CHF - judicious hydration #PPX- HSQ SCDs FEN PO hydration Daily lytes Cardiac diet Dispo - Tele Plan discussed with attending, Dr. Milton Tam, PGY1 Visit type - Emergency Visit Emergency Visit: Yes ED Registration Date: 12/07/17 Care time: The patient presented to the Emergency Department on the above date and was hospitalized for further evaluation of their emergent condition. - New Patient This patient is new to me today: No - Critical Care Critical Care patient: No
[2017-12-09 06:06] LABS: SERUM IRON SATURATION 8 % (15-55); TOTAL IRON BINDING CAPACITY 116 ug/dL (250-450); UIBC 107 ug/dL (111-343)
[2017-12-09] MEDS: dilTIAZem HCL 30 MG TABLET (FP) PO SCH ×3 (06:07→22:02)
[2017-12-09 06:24] LABS: BASO % 0.1 % (0-2.0); HEMATOCRIT 32.9 % (35.4-49); HEMOGLOBIN 10.7 GM/dL (11.7-16.9); LYMPH % 6.4 % (8-40); MCH 26.7 pg (25.7-33.7); MCHC 32.6 g/dl (32.0-35.9); MEAN PLT VOLUME 8.3 fl (7.5-11.1); MONO % 9.5 % (3.8-10.2); PLATELET COUNT 239 K/MM3 (134-434); RBC 4.01 M/mm3 (4.00-5.60); RDW 18.8 % (11.9-15.9); WHITE BLOOD COUNT 7.3 K/mm3 (4.0-10.0)
[2017-12-09 06:55] LABS: ALBUMIN 1.6 g/dl (3.4-5.0); ANION GAP 6 (8-16); BLOOD UREA NITROGEN 16 mg/dL (7-18); CALCIUM 7.2 mg/dL (8.5-10.1); CHLORIDE 109 mmol/L (98-107); CO2 25 mmol/L (21-32); GLUCOSE,RANDOM 77 mg/dL (74-106); MAGNESIUM 1.9 mg/dL (1.8-2.4); POTASSIUM 4.3 mmol/L (3.5-5.1); SODIUM 140 mmol/L (136-145)
[2017-12-09 06:59] LABS: ALK PHOS 85 U/L (45-117); BILIRUBIN,TOTAL 0.6 mg/dL (0.2-1.0); CREATININE 0.7 mg/dL (0.7-1.3); PHOSPHOROUS 2.6 mg/dL (2.5-4.9); SGPT/ALT 13 U/L (12-78); TOT PROT 4.9 g/dl (6.4-8.2)
[2017-12-09 07:06] LABS: SGOT/AST 4 U/L (15-37)
[2017-12-09] MEDS ORDERED: PT OWN MED DRAWER 7, Y5N ONE ×2 (10:01→15:53)
[2017-12-09] MEDS: ZINC SULFATE 220 MG CAPSULE (FP) PO SCH (10:03)
[2017-12-09] MEDS: METOPROLOL TARTRATE 50 MG TABLET (FP) PO SCH ×2 (10:03→22:03)
[2017-12-09] MEDS: APIXABAN 5 MG TABLET PO SCH (10:03)
--- NOTE | 2017-12-09 11:06 | CON.GI ---
Consult Consult Specialty:: GI - History of Present Illness History of Present Illness: Chart reviewed, events noted. as per ED intake: An 82M with no significant past medical history, not following PCP, presents to the hospital today complaining of diarrhea that started 3 weeks ago when he was in [facility]. Other family members developed diarrhea at the same time. No dysphagia, odynophagia, nausea, vomiting, melena, hematochezia, hematemesis, jaundice. No joint, or skin involvement. No new medications, herbal, OTC/NSAIDs remedies. Colonoscopy 5 y ago was normal. He was also found on admission new onset of A.Fib with b/l lower extremitis edema. on 12/06 tmax 100.5, otherwise afebrial. Normal WBC, electrolytes, bun, cr. Normocytic anemia, iron deficiency, low albumin - History Source History Provided By: Patient, Medical Record - Past Surgical History Additional Surgical History: Cyst removal from his throat - Alcohol/Substance Use Hx Alcohol Use: No History of Substance Use: reports: None - Smoking History Smoking history: Former smoker Home Medications - Allergies Allergies/Adverse Reactions: Allergies Allergy/AdvReac Type Severity Reaction Status Date / Time No Known Allergies Allergy Verified 12/06/17 18:32 - Home Medications Home Medications: Ambulatory Orders NK [No Known Home Medication] 12/06/17 Family Disease History - Family Disease History Family History: Unremarkable Review of Systems Findings/Remarks: as per HPI, H&P Physical Exam-GI Vital Signs: Vital Signs Temperature 97.7 F 12/09/17 05:37 Pulse Rate 86 12/09/17 05:37 Respiratory Rate 18 12/09/17 05:37 Blood Pressure 98/46 12/09/17 05:37 O2 Sat by Pulse Oximetry (%) 96 12/08/17 20:27 Constitutional: Yes: Well Nourished, No Distress, Calm Eyes: Yes: Conjunctiva Clear HENT: Yes: Atraumatic Neck: Yes: Supple Cardiovascular: Yes: Pulse Irregular. No: Bradycardia, Tachycardia Respiratory: Yes: Regular, CTA Bilaterally Gastrointestinal Inspection: No: Ascites, Distention ...Auscultate: Yes: Normoactive Bowel Sounds ...Palpate: Yes: Soft. No: Firm/Rigid, Guarding, Mass, Tenderness Edema: Yes Edema: LLE: 2+, RLE: 3+ Integumentary: No: Jaundice, Rash Neurological: Yes: Alert Labs: CBC, BMP 12/09/17 06:00 12/09/17 06:00 INR, PTT INR 1.50 (0.82-1.09) H 12/06/17 19:34 Laboratory Tests 12/06/17 12/06/17 12/06/17 19:34 19:34 19:34 WBC 9.6 RBC 4.09 Hgb 10.9 L Hct 34.2 L MCV 83.6 MCH 26.7 MCHC 31.9 L RDW 18.9 H Plt Count 287 MPV 8.4 Neutrophils % 89.9 H Lymphocytes % 2.4 L Monocytes % 7.6 Eosinophils % 0.0 Basophils % 0.1 PT with INR 16.90 H INR 1.50 H PTT (Actin FS) D-Dimer Sodium 138 Potassium 4.4 Chloride 105 Carbon Dioxide 22 Anion Gap 11 BUN 18 Creatinine 0.9 Creat Clearance w eGFR > 60 Random Glucose 114 H Lactic Acid Calcium 7.5 L Phosphorus Magnesium 2.0 Iron TIBC Iron Saturation Ferritin Total Bilirubin 0.6 AST 8 L ALT 19 Alkaline Phosphatase 104 Creatine Kinase 36 L Troponin I 0.06 H B-Natriuretic Peptide 56175.79 H Total Protein 6.0 L Albumin 2.1 L Triglycerides Cholesterol Total LDL Cholesterol HDL Cholesterol TSH 2.65 Urine Color Urine Appearance Urine pH Ur Specific [place] Urine Protein Urine Glucose (UA) Urine Ketones Urine Blood Urine Nitrite Urine Bilirubin Urine Urobilinogen Ur Leukocyte Esterase Urine WBC (Auto) Urine RBC (Auto) Urine Bacteria Hyaline Casts Urine Mucus Stool Occult Blood 12/06/17 12/06/17 12/06/17 19:34 19:49 20:10 WBC RBC Hgb Hct MCV MCH MCHC RDW Plt Count MPV Neutrophils % Lymphocytes % Monocytes % Eosinophils % Basophils % PT with INR INR PTT (Actin FS) D-Dimer 652 H Sodium Potassium Chloride Carbon Dioxide Anion Gap BUN Creatinine Creat Clearance w eGFR Random Glucose Lactic Acid Calcium Phosphorus Magnesium Iron TIBC Iron Saturation Ferritin Total Bilirubin AST ALT Alkaline Phosphatase Creatine Kinase Troponin I B-Natriuretic Peptide Total Protein Albumin Triglycerides Cholesterol Total LDL Cholesterol HDL Cholesterol TSH Cancelled Urine Color Urine Appearance Urine pH Ur Specific [place] Urine Protein Urine Glucose (UA) Urine Ketones Urine Blood Urine Nitrite Urine Bilirubin Urine Urobilinogen Ur Leukocyte Esterase Urine WBC (Auto) Urine RBC (Auto) Urine Bacteria Hyaline Casts Urine Mucus Stool Occult Blood Negative 12/06/17 12/06/17 12/07/17 20:56 22:30 02:00 WBC RBC Hgb Hct MCV MCH MCHC RDW Plt Count MPV Neutrophils % Lymphocytes % Monocytes % Eosinophils % Basophils % PT with INR INR PTT (Actin FS) D-Dimer Sodium Potassium Chloride Carbon Dioxide Anion Gap BUN Creatinine Creat Clearance w eGFR Random Glucose Lactic Acid 1.9 Calcium Phosphorus Magnesium Iron TIBC Iron Saturation Ferritin Total Bilirubin AST ALT Alkaline Phosphatase Creatine Kinase Troponin I 0.05 B-Natriuretic Peptide Total Protein Albumin Triglycerides Cholesterol Total LDL Cholesterol HDL Cholesterol TSH Urine Color Ksenia Urine Appearance Clear Urine pH 5.0 Ur Specific [place] 1.023 Urine Protein 1+ H Urine Glucose (UA) Negative Urine Ketones Trace H Urine Blood Negative Urine Nitrite Negative Urine Bilirubin 2.0 Urine Urobilinogen 4.0 e.u/dl Ur Leukocyte Esterase Negative Urine WBC (Auto) 4 Urine RBC (Auto) 3 Urine Bacteria Rare Hyaline Casts 3 Urine Mucus Few Stool Occult Blood 12/07/17 12/07/17 12/07/17 05:00 05:00 05:00 WBC 8.9 RBC 3.64 L Hgb 9.9 L Hct 30.0 L MCV 82.6 MCH 27.3 MCHC 33.1 RDW 18.3 H Plt Count 208 D MPV 8.4 Neutrophils % 84.7 H Lymphocytes % 5.3 L D Monocytes % 9.9 Eosinophils % 0.0 Basophils % 0.1 PT with INR INR PTT (Actin FS) D-Dimer Sodium 138 Potassium 3.9 Chloride 106 Carbon Dioxide 23 Anion Gap 9 BUN 19 H Creatinine 0.8 Creat Clearance w eGFR > 60 Random Glucose 91 D Lactic Acid Calcium 7.5 L Phosphorus Magnesium Iron TIBC Iron Saturation Ferritin Total Bilirubin 0.7 AST 5 L D ALT 16 Alkaline Phosphatase 89 Creatine Kinase Troponin I 0.04 B-Natriuretic Peptide Total Protein 5.2 L Albumin 1.8 L Triglycerides 74 Cholesterol 80 Total LDL Cholesterol 52 HDL Cholesterol 23 L TSH Urine Color Urine Appearance Urine pH Ur Specific [place] Urine Protein Urine Glucose (UA) Urine Ketones Urine Blood Urine Nitrite Urine Bilirubin Urine Urobilinogen Ur Leukocyte Esterase Urine WBC (Auto) Urine RBC (Auto) Urine Bacteria Hyaline Casts Urine Mucus Stool Occult Blood 12/07/17 12/07/17 12/08/17 09:00 19:34 06:00 WBC RBC Hgb Hct MCV MCH MCHC RDW Plt Count MPV Neutrophils % Lymphocytes % Monocytes % Eosinophils % Basophils % PT with INR INR PTT (Actin FS) 55.7 H D-Dimer Sodium 139 Potassium 4.2 Chloride 107 Carbon Dioxide 24 Anion Gap 8 BUN 17 Creatinine 0.8 Creat Clearance w eGFR Random Glucose 89 Lactic Acid Calcium 7.3 L Phosphorus 3.2 Magnesium 2.1 Iron TIBC Iron Saturation Ferritin 53.392 Total Bilirubin AST ALT Alkaline Phosphatase Creatine Kinase Troponin I 0.04 0.03 B-Natriuretic Peptide Total Protein Albumin Triglycerides Cholesterol Total LDL Cholesterol HDL Cholesterol TSH Urine Color Urine Appearance Urine pH Ur Specific [place] Urine Protein Urine Glucose (UA) Urine Ketones Urine Blood Urine Nitrite Urine Bilirubin Urine Urobilinogen Ur Leukocyte Esterase Urine WBC (Auto) Urine RBC (Auto) Urine Bacteria Hyaline Casts Urine Mucus Stool Occult Blood 12/08/17 12/08/17 12/08/17 06:00 06:00 06:00 WBC 7.8 RBC 4.03 Hgb 10.8 L Hct 33.3 L MCV 82.7 MCH 26.7 MCHC 32.3 RDW 18.9 H Plt Count 244 MPV 8.6 Neutrophils % 82.9 H Lymphocytes % 7.8 L D Monocytes % 9.2 Eosinophils % 0.0 Basophils % 0.1 PT with INR INR PTT (Actin FS) D-Dimer Sodium Potassium Chloride Carbon Dioxide Anion Gap BUN Creatinine Creat Clearance w eGFR Random Glucose Lactic Acid Calcium Phosphorus Magnesium Iron 9 L TIBC 116 L Iron Saturation 8 L Ferritin Cancelled Total Bilirubin AST ALT Alkaline Phosphatase Creatine Kinase Troponin I B-Natriuretic Peptide Total Protein Albumin Triglycerides Cholesterol Total LDL Cholesterol HDL Cholesterol TSH Urine Color Urine Appearance Urine pH Ur Specific [place] Urine Protein Urine Glucose (UA) Urine Ketones Urine Blood Urine Nitrite Urine Bilirubin Urine Urobilinogen Ur Leukocyte Esterase Urine WBC (Auto) Urine RBC (Auto) Urine Bacteria Hyaline Casts Urine Mucus Stool Occult Blood 12/08/17 12/08/17 12/08/17 06:00 10:00 15:48 WBC RBC Hgb Hct MCV MCH MCHC RDW Plt Count MPV Neutrophils % Lymphocytes % Monocytes % Eosinophils % Basophils % PT with INR INR PTT (Actin FS) 86.5 H D 54.9 H D D-Dimer Sodium Potassium Chloride Carbon Dioxide Anion Gap BUN Creatinine Creat Clearance w eGFR Random Glucose Lactic Acid Calcium Phosphorus Magnesium Iron TIBC Iron Saturation Ferritin Total Bilirubin AST ALT Alkaline Phosphatase Creatine Kinase Troponin I Cancelled B-Natriuretic Peptide Total Protein Albumin Triglycerides Cholesterol Total LDL Cholesterol HDL Cholesterol TSH Urine Color Urine Appearance Urine pH Ur Specific [place] Urine Protein Urine Glucose (UA) Urine Ketones Urine Blood Urine Nitrite Urine Bilirubin Urine Urobilinogen Ur Leukocyte Esterase Urine WBC (Auto) Urine RBC (Auto) Urine Bacteria Hyaline Casts Urine Mucus Stool Occult Blood 12/09/17 12/09/17 12/09/17 06:00 06:00 06:00 WBC 7.3 RBC 4.01 Hgb 10.7 L Hct 32.9 L MCV 82.0 MCH 26.7 MCHC 32.6 RDW 18.8 H Plt Count 239 MPV 8.3 Neutrophils % 84.0 H Lymphocytes % 6.4 L Monocytes % 9.5 Eosinophils % 0.0 Basophils % 0.1 PT with INR INR PTT (Actin FS) 60.3 H D-Dimer Sodium 140 Potassium 4.3 Chloride 109 H Carbon Dioxide 25 Anion Gap 6 L BUN 16 Creatinine 0.7 Creat Clearance w eGFR > 60 Random Glucose 77 Lactic Acid Calcium 7.2 L Phosphorus 2.6 Magnesium 1.9 Iron TIBC Iron Saturation Ferritin Total Bilirubin 0.6 AST 4 L ALT 13 Alkaline Phosphatase 85 Creatine Kinase Troponin I B-Natriuretic Peptide Total Protein 4.9 L Albumin 1.6 L Triglycerides Cholesterol Total LDL Cholesterol HDL Cholesterol TSH Urine Color Urine Appearance Urine pH Ur Specific [place] Urine Protein Urine Glucose (UA) Urine Ketones Urine Blood Urine Nitrite Urine Bilirubin Urine Urobilinogen Ur Leukocyte Esterase Urine WBC (Auto) Urine RBC (Auto) Urine Bacteria Hyaline Casts Urine Mucus Stool Occult Blood 12/09/17 06:15 WBC RBC Hgb Hct MCV MCH MCHC RDW Plt Count MPV Neutrophils % Lymphocytes % Monocytes % Eosinophils % Basophils % PT with INR INR PTT (Actin FS) D-Dimer Sodium Potassium Chloride Carbon Dioxide Anion Gap BUN Creatinine Creat Clearance w eGFR Random Glucose Lactic Acid Calcium Phosphorus Magnesium Iron TIBC Iron Saturation Ferritin Total Bilirubin AST ALT Alkaline Phosphatase Creatine Kinase Troponin I B-Natriuretic Peptide Total Protein Albumin Triglycerides Cholesterol Total LDL Cholesterol HDL Cholesterol TSH Urine Color Urine Appearance Urine pH Ur Specific [place] Urine Protein Urine Glucose (UA) Urine Ketones Urine Blood Urine Nitrite Urine Bilirubin Urine Urobilinogen Ur Leukocyte Esterase Urine WBC (Auto) Urine RBC (Auto) Urine Bacteria Hyaline Casts Urine Mucus Stool Occult Blood Positive Problem List - Problems (1) Iron deficiency anemia Code(s): D50.9 - IRON DEFICIENCY ANEMIA, UNSPECIFIED (2) Diarrhea Code(s): R19.7 - DIARRHEA, UNSPECIFIED Assessment/Plan An 82 yom with chronic diarrhea, iron deficiency anema and new onset atrial fibrillation with resulting CHF. Started on anticoagulation Agree with r/o parasitic infection and if negative, plan EGD and colonsocopy to r/o inflammatory GI states that could lead to chronic diarrhea, iron deficiency and low albumin. Please hold DAC if possible until GI work up is complete. gastrin lipase, amylase, VIP, esr, crp
--- NOTE | 2017-12-09 12:05 | CONSULT ---
Admitting History and Physical - Primary Care Physician PCP: Jacquie Rose - Admission History of Present Illness: An 82M with no significant past medical history, not following PCP, presents to the hospital today complaining of diarrhea that [facility] Other family members developed diarrhea at the same time. No dysphagia, odynophagia, nausea, vomiting, melena, hematochezia, hematemesis, jaundice. No joint, or skin involvement. No new medications, herbal, OTC/NSAIDs remedies. Colonoscopy 5 y ago was normal. He was also found on admission new onset of A.Fib with b/l lower extremitis edema. on 12/06 tmax 100.5, otherwise afebrial. Normal WBC, electrolytes, bun, cr. Normocytic anemia, iron deficiency , low albumin Additional Surgical History: Cyst removal from his throat- pt reports 40 years ago Selected Entries 12/06/17 12/06/17 12/07/17 18:30 19:40 03:10 Breakfast Lunch Supper Temperature 97.7 F 100.5 F H 97.5 F L 12/07/17 12/07/17 12/07/17 05:23 08:00 14:00 Breakfast 75% Lunch 75% Supper Temperature 98.2 F 97.9 F 98.4 F 12/07/17 12/07/17 12/08/17 18:49 22:00 02:00 Breakfast Lunch Supper 75% Temperature 98.2 F 97.5 F L 97.6 F 12/08/17 12/08/17 12/08/17 06:00 10:00 14:00 Breakfast Lunch Supper Temperature 97.5 F L 97.5 F L 97.4 F L 12/08/17 12/08/17 12/09/17 18:00 22:00 02:00 Breakfast Lunch Supper 0 Temperature 98.7 F 97.7 F 98.5 F 12/09/17 12/09/17 05:37 10:00 Breakfast Lunch Supper Temperature 97.7 F 98.1 F Per GI-An 82 yom with chronic diarrhea, iron deficiency anema and new onset atrial fibrillation with resulting CHF. Started on anticoagulation Agree with r/o parasitic infection and if negative, plan EGD and colonsocopy to r/o inflammatory GI states that could lead to chronic diarrhea, iron deficiency and low albumin History Source: Patient, Medical Record Limitations to Obtaining History: Language Barrier (used environmental health technologist) - Smoking History Smoking history: Former smoker - Alcohol/Substance Use Hx Alcohol Use: No History of Substance Use: reports: None History - Admission Reason For Visit: A-FIB - Diagnostics X-ray: Report Reviewed - General Mental Status: Alert and Oriented, Awake and Alert, Able to Follow Commands Attention: Intact, Minimal Impairment Head/Neck Control: WFL - Hearing Hearing: Normal Hearing Aide: No With Patient: No Speech Evaluation - Communication Primary Language: GERMAN Secondary Language: WOLOF Communication: Yes: Within Normal Limits, Simple Responses, Language Barrier ( used environmental health technologist) - Speech Production Able to Make Needs Known: Yes: WNL Intelligibility: Yes: WNL - Speech Characteristics Voice Loudness: Normal Voice Pitch: Yes: Normal Voice Phonatory-based Quality: Yes: Normal Speech Pattern: Normal Speech Clarity: < 100% Nasal Resonance: Normal Articulation: Yes: Precise - Language/Auditory Comprehension Follows: Yes: 1 Stage Simple Commands - Language/Verbal Expression Able to Respond to Simple Queries: Yes: WNL Able to Communicate Wants and Needs: Yes: WNL Functional Communication Status: Yes: WNL - Memory/Perception roasterman Memory: Yes: WNL Short Term Memory: Yes: WNL - Swallow Evaluation/Bedside Assessment Current Nutritional Intake: Regular (lactose resticted diet), Thin Liquids, Other (ensure enlive ordered.) Oral Secretions: Yes: WFL (however, began gagging during my evaluation, before po trials were initiated.) Dentition: Yes: Missing Teeth Facial Symmetry at Rest: Symmetrical Facial Symmetry on Retraction: Symmetrical Facial Movement: Controlled Against Resistance Opening: Normal Against Resistance Closing: Normal Pucker Lips: Normal Smile: Normal Lingual Movement: Normal, Symmetric Lingual Speed of Movement: Normal Lingual Movement Characteristics: Normal Laryngeal Elevation: WFL Laryngeal Movement: Able to Palpate Rate of Intake: Slow/Holding Bolus Size: Small Labial Seal: WFL Oral Prep Time: WFL A-P Transit: WFL Pocketing: None Coughing/Throat Clear: No Change in Voice: No Recommendations - Speech Evaluation, Impression/Plan Impression: Pt reports loss of taste x 6 weeks. Denies dysphagia. Gagging/ heaving during evaluation, without PO intake. He felt it may be related to the medication he just had. - Dysphagia Impressions/Plan Dysphagia Impressions: Ongoing Evaluation - Recommendations Diet Consistency: Regular (soft, as tolerated and desired.) Medication Administration: Whole with water Liquids: Thin Liquids
--- NOTE | 2017-12-09 12:58 | PN ---
Teaching Attending Note Name of Resident: Saurav Tam ATTENDING PHYSICIAN STATEMENT I saw and evaluated the patient. I reviewed the resident's note and discussed the case with the resident. I agree with the resident's findings and plan as documented. SUBJECTIVE:still having loose BM. able to tolerate some breakfast. dnies Cp, SOB , fever, chills, or palpitaitons OBJECTIVE: Last Vital Signs Temp Pulse Resp BP Pulse Ox 98.1 F 75 18 105/60 95 12/09/17 10:00 12/09/17 10:00 12/09/17 10:00 12/09/17 10:12/09/17 09:00 General NAD CV S1 S2 irregular lungsCTA B/L no wheezing/rales/rhjonchi Abdomen soft NT/ND ASSESSMENT AND PLAN: 82yo M with no PMH but has not seen PMD in several years presented iwth diarrhea and LE swelling for 3 weeks and found to be in afib with RVR in the ER 1. Afib with RVR- possible induced from infection although can not r/o ischemia.cont cardiac monitoring. HR now improved. did receive digoxin overnight due to tachycardia with hypotension. would hold digoxin at this time. as pt did not gt his medictions on time yesterday may have exacerbated the symptoms. was placed on elqiuis however possible procedure iwth EGD. would switch over to at least lovenox at this time for pending procedure. echo pending. cardio on board 2. Diarrhea- liekly viral gastroenteritis as recently in [facility] and sick contacts. afebrile, no leukcoytosis. Cx pending. will give loperamide prn. low suspicion for cdiff. 3. 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 AIRCREWMAN and nutritional eval. 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 possible EGD by GI. 4. LE swelling- possible CHF. now resolved. Echo pending. doppler neg for DVT 5. Iron deficiency anemia- some dilutional component. Hgb stable. will give venofer while here. start oral supplements. repeat iron studies in 3 months. FOBT negative 6. DVT ppx- eliquis
[2017-12-09] MEDS ORDERED: IRON SUCROSE INJECTION 200 MG in SODIUM CHLORIDE 90 ML IVPB ONE ×2 (14:00→17:30)
--- NOTE | 2017-12-10 05:45 | PN ---
Physical Exam: SUBJECTIVE: Patient seen and examined by me - no major overnight events, VSS; tolerating IV iron, still with diarrhea overnight per nursing - Pt still with poor appetite, minimal PO intake; Denies f/c/n/v, JENKINS, vision changes, cp, SOB, ab pain, back pain, LE edema; Counseled on need for EGD/ colonoscopy by GI OBJECTIVE: Vital Signs Intake & Output 12/07/17 12/08/17 12/09/17 12/10/17 23:59 23:59 23:59 23:59 Intake Total 686 008 0571 Balance 878 708 1248 Weight 66.315 kg Period Temp Pulse Resp BP Sys/Slaughter Pulse Ox Last 24 Hr 98.0 F-98.2 F 66-109 18-20 91-105/55-67 91-95 GENERAL: Elderly man, NAD, cachectic HEAD: NCAT, alopecia EYES: PERRL, extraocular movements intact, sclera anicteric, conjunctiva clear. No ptosis. ENT: Ears normal, nares patent, oropharynx clear without exudates, moist mucous membranes. NECK: Trachea midline, full range of motion, supple. LUNGS: No crackles, no wheezes or rhonchi HEART: IRR IRR, no m/c/g/r ABDOMEN: Soft, nontender, nondistended, normoactive bowel sounds, no guarding, no rebound, no hepatosplenomegaly, no masses. No CVA tenderness EXTREMITIES: 2+ pulses, warm, well-perfused, 2+ pitting pedal edema NEUROLOGICAL: Cranial nerves II through XII grossly intact. Normal speech, gait not observed. PSYCH: Normal mood, normal affect. SKIN: Warm, dry, normal turgor, no rashes or lesions noted Laboratory Results - last 24 hr CBC, BMP CBC, BMP 12/10/17 06:18 12/09/17 06:00 12/09/17 06:00 12/09/17 06:00 12/08/17 12/09/17 12/09/17 06:00 06:00 06:00 WBC 7.3 RBC 4.01 Hgb 10.7 L Hct 32.9 L MCV 82.0 MCH 26.7 MCHC 32.6 RDW 18.8 H Plt Count 239 MPV 8.3 Neutrophils % 84.0 H Lymphocytes % 6.4 L Monocytes % 9.5 Eosinophils % 0.0 Basophils % 0.1 PTT (Actin FS) 60.3 H Sodium Potassium Chloride Carbon Dioxide Anion Gap BUN Creatinine Creat Clearance w eGFR Random Glucose Calcium Phosphorus Magnesium Iron 9 L TIBC 116 L Iron Saturation 8 L Total Bilirubin AST ALT Alkaline Phosphatase Total Protein Albumin Stool Occult Blood Blood Type Antibody Screen Crossmatch 12/09/17 12/09/17 12/09/17 06:00 06:15 12:15 WBC RBC Hgb Hct MCV MCH MCHC RDW Plt Count MPV Neutrophils % Lymphocytes % Monocytes % Eosinophils % Basophils % PTT (Actin FS) Sodium 140 Potassium 4.3 Chloride 109 H Carbon Dioxide 25 Anion Gap 6 L BUN 16 Creatinine 0.7 Creat Clearance w eGFR > 60 Random Glucose 77 Calcium 7.2 L Phosphorus 2.6 Magnesium 1.9 Iron TIBC Iron Saturation Total Bilirubin 0.6 AST 4 L ALT 13 Alkaline Phosphatase 85 Total Protein 4.9 L Albumin 1.6 L Stool Occult Blood Positive Blood Type O POSITIVE Antibody Screen Negative Crossmatch See Detail Active Medications Generic Name Dose Route Start Last Admin Trade Name Freq PRN Reason Stop Dose Admin Acetaminophen 650 mg 12/07/17 02:00 Tylenol - PO Q6H PRN FEVER Diltiazem HCl 30 mg 12/08/17 14:00 12/09/17 22:02 Cardizem - PO 30 mg TID STEWART Administration Loperamide HCl 2 mg 12/08/17 11:02 12/09/17 15:58 Imodium - PO 2 mg Q8H PRN Administration DIARRHEA Metoprolol Tartrate 5 mg 12/07/17 11:30 12/07/17 17:45 Lopressor Injection - IVPUSH 5 mg Q4H PRN Administration TACHYCARDIA Metoprolol Tartrate 100 mg 12/08/17 22:00 12/09/17 22:03 Lopressor - PO 100 mg BID STEWART Administration Zinc Sulfate 220 mg 12/07/17 11:45 12/09/17 10:03 Orazinc - PO 220 mg DAILY STEWART Administration Microbiology 12/06/17 22:30 Blood - Peripheral Venous Blood Culture - Preliminary NO GROWTH OBTAINED AFTER 72 HOURS, INCUBATION TO CONTINUE FOR 2 DAYS. 12/06/17 22:30 Blood - Peripheral Venous Blood Culture - Preliminary NO GROWTH OBTAINED AFTER 72 HOURS, INCUBATION TO CONTINUE FOR 2 DAYS. 12/07/17 08:00 Stool Salmonella/Shigella Culture - Final NO GROWTH OF SALMONELLA OR SHIGELLA SPECIES OBTAINED 12/07/17 08:00 Stool Campylobacter Culture - Final NO GROWTH OF CAMPYLOBACTER SPECIES OBTAINED 12/07/17 08:00 Stool Yersinia Culture - Final NO GROWTH OF YERSINIA SPECIES OBTAINED 12/07/17 08:00 Stool Vibrio Culture - Final 12/07/17 08:00 Stool Escherichia coli 0157 Culture - Final NO GROWTH OF E COLI 0157 OBTAINED 12/06/17 20:56 Urine - Urine Clean Catch Urine Culture - Final Contaminated: Please Repeat 12/07/17 03:35 Nasopharyngeal Swab Influenza Types A,B Antigen (LUIS) - Final 12/07/17 03:35 Nasopharyngeal Swab - Final CXR 12/06 - Imaging reveals a large heart, sclerotic knob, clips by the thoracic inlet, right base granuloma and some atelectasis with pleural reaction at the left base. There may be some left hilar calcifications. A discrete infiltrate or pneumothorax is not seen. There are degenerative changes. The soft tissues are intact. Follow-up recommended. LE duplex 12/06 - IMPRESSION: No evidence of deep vein thrombosis as above. ECHO 12/09 - LV normal size, EF 35-40% w/ global hypokinesia; RV mildly dilated, function mild to moderately reduced; ZAIRA; mod MR, mild TR, mod , mild AR; no effusions ASSESSMENT/PLAN: The patient is a 82 year old male with no significant past medical history, not following PCP, that presents to the hospital today complaining of diarrhea that started 3 weeks ago when he was in [facility]. He was found to have new onset of AFib. Now with iron deficiency anemia and BRBPR x1 this AM. GI aware, PPI gtt, IV access, type and screen and serial cbcs. EGD/colonoscopy on saturday. 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 -hold heparin #CHF secondary to afib - BNP 15735 on presentation; clinically volume overloaded - PO hydration - Strict Is and Os - Cardiology following - monitor UOP, volume status #Diarrhea- llikely viral; recent hx of sick contact and travel to [facility] -f/u stool studies; negative to date - f/u gastrin, VIP -PO hydration - beside commode - d/c loperamide - c diff stool studies sent #dysgucia/dysphagia - decreased PO intake; negative colonoscopy and 30 Lb loss over past month; no oropharyngeal lesions noted on exam - c/w zinc sulfate - encourage PO intake - Nutrition eval - Plan for EGD/colonoscopy after infectious etiology of diarrhea ruled-out to assess for inflammatory pathology and/or malignancy considering anemia, GI bleed and 30lb wt loss over last month - bowel prep tomorrow if HR well controlled for scope with GI #normocytic anemia - likely dilutional; FOBT negative; iron deficiency anemia - iron 9, TIBC 116, low iron sat, normal ferritin - ferrous sulfate PO - BRBPR this AM - Repeat colonoscopy/EGD on saturday - repeat iron studies in 3 months as outpt #LE swelling- LE duplex negative; echo pending -secondary to CHF - judicious hydration #PPX- SCDs FEN PO hydration Daily lytes NPO except meds Dispo - Tele Plan discussed with attending, Dr. Kevin Tam, PGY1 Visit type - Emergency Visit Emergency Visit: Yes ED Registration Date: 12/07/17 Care time: The patient presented to the Emergency Department on the above date and was hospitalized for further evaluation of their emergent condition. - New Patient This patient is new to me today: No - Critical Care Critical Care patient: No
[2017-12-10] MEDS: dilTIAZem HCL 30 MG TABLET (FP) PO SCH ×2 (06:47→15:13)
[2017-12-10 07:42] LABS: HEMATOCRIT 30.4 % (35.4-49); HEMOGLOBIN 9.7 GM/dL (11.7-16.9); MCH 26.2 pg (25.7-33.7); MCHC 31.8 g/dl (32.0-35.9); MEAN CELL VOLUME 82.4 fl (80-96); PLATELET COUNT 195 K/MM3 (134-434); RBC 3.69 M/mm3 (4.00-5.60); RDW 18.6 % (11.9-15.9); WHITE BLOOD COUNT 6.1 K/mm3 (4.0-10.0)
[2017-12-10] MEDS ORDERED: LOPERAMIDE HCL 2 MG CAPSULE PO PRN (08:17)
--- NOTE | 2017-12-10 08:20 | PN ---
Teaching Attending Note Name of Resident: Saurav Tam ATTENDING PHYSICIAN STATEMENT I saw and evaluated the patient. I reviewed the resident's note and discussed the case with the resident. I agree with the resident's findings and plan as documented with exceptions below. SUBJECTIVE: Patient seen and examined. No chest pain, palpitations, dizziness, dsypnea, abdominal or urinary symptoms. Denied diarrhea but reported by nursing. OBJECTIVE: Vital Signs Period Temp Pulse Resp BP Sys/Slaughter Pulse Ox Last 24 Hr 98.0 F-98.2 F 66-109 18-20 91-111/50-67 91-95 Intake & Output 12/07/17 12/08/17 12/09/17 12/10/17 23:59 23:59 23:59 23:59 Intake Total 991 827 3307 1000 Balance 202 505 4597 1000 Weight 146 lb 3.2 oz General lying in bed in no acute distress Chest no rales or wheezing CVS S1S2 irregular Abdomen soft, NT, ND, positive bowel sounds Extremities no edema Home Medication List Medication Instructions Recorded Confirmed Type NK [No Known Home Medication] 12/06/17 12/06/17 History Active Medications Generic Name Dose Route Start Last Admin Trade Name Freq PRN Reason Stop Dose Admin Acetaminophen 650 mg 12/07/17 02:00 Tylenol - PO Q6H PRN FEVER Diltiazem HCl 30 mg 12/08/17 14:00 12/10/17 06:47 Cardizem - PO 30 mg TID STEWART Administration Metoprolol Tartrate 5 mg 12/07/17 11:30 12/07/17 17:45 Lopressor Injection - IVPUSH 5 mg Q4H PRN Administration TACHYCARDIA Metoprolol Tartrate 100 mg 12/08/17 22:00 12/09/17 22:03 Lopressor - PO 100 mg BID STEWART Administration Zinc Sulfate 220 mg 12/07/17 11:45 12/09/17 10:03 Orazinc - PO 220 mg DAILY STEWART Administration 2D echo results reviewed ASSESSMENT AND PLAN: 82yo M with no PMH but has not seen PMD in several years presented iwth diarrhea and LE swelling for 3 weeks and found to be in afib with RVR in the ER -Acute GI haemorrhage/hematochezia, ?diverticular, low suspicion for upper but cannot r/o AVM, low suspicion for PUD -New onset Afib with RVR -Newly diagnosis 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 viral gastroenteritis given recent visit to [facility] and sick contacts -Dysphagia with dysgucia -LE edema, likely CHF -Iron deficiency anemia Plan: Blood diarrhea with clots x 1 today. Hemodynamics stable. Discussed with GI, plan for EGD/colonoscopy pending cardiac clearance. H/h q8h and close hemodynamic monitoring, continue telemetry for now. Protonix drip, NPO except meds for now. Cardiology input noted, Metorpolol/diltiazem, however low EF on echo. Eliquis on hold, need to hold anti-coagulation given above. 2D echo reviewed, anticipate will need ischemic w/u once symptoms improved, follow up with cardiology. last colonoscopy 2 years ago. Stool studies. Check Stool C difficile, hold loperamide pending further w/u. Monitor volume status closely. Speech/swallow input noted, no oral thrush, Plan as above. . s/p Venofer. Start oral iron suppl. Transfusion prn for Hb < 8 or ongoing bleed. DVTPPX with SCDs dispo pending resolution of active issues.
[2017-12-10] MEDS ORDERED: POLYETHYLENE GLYCOL 3350 255 GM BTL PO ONE (08:22)
[2017-12-10] MEDS: METOPROLOL TARTRATE 50 MG TABLET (FP) PO SCH ×2 (09:31→21:30)
[2017-12-10] MEDS: ZINC SULFATE 220 MG CAPSULE (FP) PO SCH (09:32)
--- NOTE | 2017-12-10 10:15 | PN ---
Progress Note, [employer] - Note Progress Note: Tolerated diet well this am. 75% of breakfast. No further f/u indicated.
[2017-12-10] MEDS ORDERED: PANTOPRAZOLE SODIUM 80 MG in SODIUM CHLORIDE 100 ML IVPB SCH (11:00)
[2017-12-10 11:55] LABS: HEMATOCRIT 33.7 % (35.4-49); HEMOGLOBIN 10.5 GM/dL (11.7-16.9); MCH 25.8 pg (25.7-33.7); MCHC 31.2 g/dl (32.0-35.9); MEAN CELL VOLUME 82.9 fl (80-96); MEAN PLT VOLUME 7.9 fl (7.5-11.1); PLATELET COUNT 234 K/MM3 (134-434); RBC 4.07 M/mm3 (4.00-5.60); RDW 18.8 % (11.9-15.9); WHITE BLOOD COUNT 6.9 K/mm3 (4.0-10.0)
[2017-12-10] MEDS ORDERED: PANTOPRAZOLE SODIUM 160 MG in DEXTROSE 5%-WATER - 290 ML IVPB SCH (12:00)
[2017-12-10] MEDS: PANTOPRAZOLE SODIUM 160 MG in SODIUM CHLORIDE 290 ML IVPB SCH (12:36)
[2017-12-10 14:50] LABS: HEMATOCRIT 30.8 % (35.4-49); HEMOGLOBIN 9.8 GM/dL (11.7-16.9); MCH 26.1 pg (25.7-33.7); MCHC 31.7 g/dl (32.0-35.9); MEAN CELL VOLUME 82.2 fl (80-96); MEAN PLT VOLUME 7.6 fl (7.5-11.1); PLATELET COUNT 197 K/MM3 (134-434); RBC 3.74 M/mm3 (4.00-5.60); WHITE BLOOD COUNT 6.3 K/mm3 (4.0-10.0)
[2017-12-10 15:13] LABS: INR 2.04 (0.82-1.09)
--- NOTE | 2017-12-10 18:21 | CON.CARD ---
Consult Consult Specialty:: cardiology Reason for Consultation:: new AF; systolic CHF; pre-op (for EGD/colonoscopy) - History of Present Illness Chief Complaint: Presently alert; no chest pain, dizziness, dyspnea. History of Present Illness: Patient is an 82 yr old man with no significant medical history here today complaining of 2-3 weeks of weakness, shortness of breath, decreased exercise tolerance and diarrhea. He states that he's had chronic diarrhea since returning from [facility]. His daughter states that he does not frequently go to the doctor. He reports having associated edema in his legs bilaterally. He denies chest pain, palpitations. He does not remember feeling acutely worse in the past 48 hours. Denies blood in diarrhea. Endorses fevers, chills, cough. Patient was noted to be in new-onset AFand to have HR in 140s. - History Source History Provided By: Patient, Medical Record Limitations to Obtaining History: No Limitations - Past Surgical History Additional Surgical History: Cyst removal from his throat - Alcohol/Substance Use Hx Alcohol Use: No History of Substance Use: reports: None - Smoking History Smoking history: Former smoker Home Medications - Allergies Allergies/Adverse Reactions: Allergies Allergy/AdvReac Type Severity Reaction Status Date / Time No Known Allergies Allergy Verified 12/06/17 18:32 - Home Medications Home Medications: Ambulatory Orders NK [No Known Home Medication] 12/06/17 Family Disease History - Family Disease History Family History: Denies Review of Systems - Review of Systems Constitutional: reports: Weakness Eyes: reports: No Symptoms, Recent Change in Vision Neck: reports: No Symptoms Cardiovascular: reports: No Symptoms Respiratory: reports: No Symptoms Gastrointestinal: reports: Diarrhea Genitourinary: reports: No Symptoms Breasts: reports: No Symptoms Reported Musculoskeletal: reports: No Symptoms Integumentary: reports: No Symptoms Neurological: reports: No Symptoms Endocrine: reports: No Symptoms Hematology/Lymphatic: reports: No Symptoms Psychiatric: reports: No Symptoms - Risk Factors Known Risk Factors: Yes: Age Vital Signs: Vital Signs Temperature 97.9 F 12/10/17 14:34 Pulse Rate 86 12/10/17 14:34 Respiratory Rate 16 12/10/17 14:34 Blood Pressure 110/71 12/10/17 14:34 O2 Sat by Pulse Oximetry (%) 96 12/10/17 08:00 Constitutional: Yes: Calm Eyes: Yes: WNL HENT: Yes: WNL Neck: Yes: WNL Respiratory: Yes: Regular Gastrointestinal: Yes: Soft Renal/: No: Anuria Cardiovascular: Yes: Pulse Irregular Heart Sounds: Yes: S1 (varies in intensity), S2 Murmur: Yes: Systolic Murmur, Grade 2 Musculoskeletal: Yes: Muscle Weakness Extremities: Yes: Cool Edema: No Peripheral Pulses WNL: Yes Integumentary: Yes: WNL Neurological: Yes: Alert Psychiatric: Yes: Alert - Other Data Labs, Other Data: CBC, BMP 12/10/17 14:20 12/09/17 06:00 INR, PTT INR 2.04 (0.82-1.09) H D 12/10/17 07:00 Abnormal Lab Results 12/10/17 12/10/17 12/10/17 06:18 06:18 06:18 RBC 3.69 L Hgb 9.7 L Hct 30.4 L MCHC 31.8 L RDW 18.6 H PT with INR INR PTT (Actin FS) 63.6 H C-Reactive Protein 12.2 H 12/10/17 12/10/17 12/10/17 07:00 08:50 11:35 RBC 3.74 L Hgb 9.7 L 10.5 L Hct 30.6 L 33.7 L MCHC 31.7 L 31.2 L RDW 18.9 H 18.8 H PT with INR 23.00 H INR 2.04 H D PTT (Actin FS) C-Reactive Protein 12/10/17 14:20 RBC 3.74 L Hgb 9.8 L Hct 30.8 L MCHC 31.7 L RDW 19.0 H PT with INR INR PTT (Actin FS) C-Reactive Protein Ejection Fraction %: LVEF < 40 % Imaging - Results EKG: Image Reviewed (AF with RVR) Other: Image Reviewed (telemetry: AF with controlled VR) Problem List - Problems (1) Anemia Assessment/Plan: iron deficiency anemia. Stool guaiac positive. Code(s): D64.9 - ANEMIA, UNSPECIFIED (2) Atrial fibrillation with RVR Assessment/Plan: HR now controlled with metoprolol. INR 2.04 on 12/10/2017. Off NOAC for the past 24 hours; restart as soon as possible after GI procedures are performed this week. Code(s): I48.91 - UNSPECIFIED ATRIAL FIBRILLATION (3) Iron deficiency anemia Assessment/Plan: From a cardiac standpoint, there are no absolute contraindications for Mr. El to undergo EGD/colonoscopy. Code(s): D50.9 - IRON DEFICIENCY ANEMIA, UNSPECIFIED (4) Right bundle branch block (RBBB) Code(s): I45.10 - UNSPECIFIED RIGHT BUNDLE-BRANCH BLOCK (5) Swelling of lower extremity Code(s): M79.89 - OTHER SPECIFIED SOFT TISSUE DISORDERS (6) Systolic CHF Assessment/Plan: ECHO: mod-severely reduced LVEF. Pleural effusion. BNP >14,000. Continue metoprolol for AF, CHF. Add ACEI (lisinopril 2.5 mg daily) if renal function, BP allow. Discontinue diltiazem (significantly reduced LVEF). F/u BUN/Cr, electrolytes, daily weight, Is and Os. Code(s): I50.20 - UNSPECIFIED SYSTOLIC (CONGESTIVE) HEART FAILURE (7) Hypoalbuminemia Code(s): E88.09 - [facility] DISORDERS OF PLASMA-PROTEIN METABOLISM, NEC
--- NOTE | 2017-12-10 19:17 | PN ---
Progress Note, Physician History of Present Illness: had an episode of painles wilmarchezia around 3 pm today. No bms since then. Asymptomatic. INR 2. DAC stopped today - Current Medication List Current Medications: Active Medications Acetaminophen (Tylenol -) 650 mg PO Q6H PRN PRN Reason: FEVER Pantoprazole Sodium 160 mg/ (Sodium Chloride) 290 mls @ 14.5 mls/hr IVPB Q20H STEWART Last Admin: 12/10/17 12:36 Dose: 14.5 mls/hr Metoprolol Tartrate (Lopressor Injection -) 5 mg IVPUSH Q4H PRN PRN Reason: TACHYCARDIA Last Admin: 12/07/17 17:45 Dose: 5 mg Metoprolol Tartrate (Lopressor -) 100 mg PO BID [facility] Last Admin: 12/10/17 09:31 Dose: 100 mg Zinc Sulfate (Orazinc -) 220 mg PO DAILY [facility] Last Admin: 12/10/17 09:32 Dose: 220 mg - Objective Vital Signs: Vital Signs Temperature 97.9 F 12/10/17 14:34 Pulse Rate 86 12/10/17 14:34 Respiratory Rate 16 12/10/17 14:34 Blood Pressure 110/71 12/10/17 14:34 O2 Sat by Pulse Oximetry (%) 96 12/10/17 08:00 Constitutional: Yes: No Distress, Calm Eyes: No: Sclera Icterus Cardiovascular: No: Bradycardia, Tachycardia Respiratory: Yes: Regular. No: SOB, Tachypnea Gastrointestinal: Yes: Soft, Rectal Bleeding. No: Ascites, Distention, Melena, Tenderness, Tenderness, Epigastrium, Vomiting Neurological: Yes: Alert Labs: CBC, BMP 12/10/17 14:20 12/09/17 06:00 INR, PTT INR 2.04 (0.82-1.09) H D 12/10/17 07:00 Laboratory Last Values WBC 6.3 K/mm3 (4.0-10.0) 12/10/17 14:20 RBC 3.74 M/mm3 (4.00-5.60) L 12/10/17 14:20 Hgb 9.8 GM/dL (11.7-16.9) L 12/10/17 14:20 Hct 30.8 % (35.4-49) L 12/10/17 14:20 MCV 82.2 fl (80-96) 12/10/17 14:20 MCH 26.1 pg (25.7-33.7) 12/10/17 14:20 MCHC 31.7 g/dl (32.0-35.9) L 12/10/17 14:20 RDW 19.0 % (11.9-15.9) H 12/10/17 14:20 Plt Count 197 K/MM3 (134-434) 12/10/17 14:20 MPV 7.6 fl (7.5-11.1) 12/10/17 14:20 Neutrophils % 84.0 % (42.8-82.8) H 12/09/17 06:00 Lymphocytes % 6.4 % (8-40) L 12/09/17 06:00 Monocytes % 9.5 % (3.8-10.2) 12/09/17 06:00 Eosinophils % 0.0 % (0-4.5) 12/09/17 06:00 Basophils % 0.1 % (0-2.0) 12/09/17 06:00 ESR 15 mm/hr (0-20) 12/10/17 06:18 PT with INR 23.00 SEC (9.98-11.88) H 12/10/17 07:00 INR 2.04 (0.82-1.09) H D 12/10/17 07:00 PTT (Actin FS) 63.6 SECONDS (26.9-34.4) H 12/10/17 06:18 D-Dimer 652 ng/ml (0-500) H 12/06/17 19:34 Sodium 140 mmol/L (136-145) 12/09/17 06:00 Potassium 4.3 mmol/L (3.5-5.1) 12/09/17 06:00 Chloride 109 mmol/L (98-107) H 12/09/17 06:00 Carbon Dioxide 25 mmol/L (21-32) 12/09/17 06:00 Anion Gap 6 (8-16) L 12/09/17 06:00 BUN 16 mg/dL (7-18) 12/09/17 06:00 Creatinine 0.7 mg/dL (0.7-1.3) 12/09/17 06:00 Creat Clearance w eGFR > 60 (>60) 12/09/17 06:00 Random Glucose 77 mg/dL (74-106) 12/09/17 06:00 Lactic Acid 1.9 mmol/L (0.0-2.0) 12/06/17 22:30 Calcium 7.2 mg/dL (8.5-10.1) L 12/09/17 06:00 Phosphorus 2.6 mg/dL (2.5-4.9) 12/09/17 06:00 Magnesium 1.9 mg/dL (1.8-2.4) 12/09/17 06:00 Iron 9 ug/dL (38-169) L 12/08/17 06:00 TIBC 116 ug/dL (250-450) L 12/08/17 06:00 Iron Saturation 8 % (15-55) L 12/08/17 06:00 Ferritin 53.392 ng/ml (16.4-293.9) 12/08/17 06:00 Total Bilirubin 0.6 mg/dL (0.2-1.0) 12/09/17 06:00 AST 4 U/L (15-37) L 12/09/17 06:00 ALT 13 U/L (12-78) 12/09/17 06:00 Alkaline Phosphatase 85 U/L (45-117) 12/09/17 06:00 Creatine Kinase 36 IU/L (39-308) L 12/06/17 19:34 Troponin I 0.03 ng/ml (0.00-0.05) 12/08/17 06:00 C-Reactive Protein 12.2 MG/DL (0.00-0.3) H 12/10/17 06:18 B-Natriuretic Peptide 00475.79 pg/ml (5-450) H 12/06/17 19:34 Total Protein 4.9 g/dl (6.4-8.2) L 12/09/17 06:00 Albumin 1.6 g/dl (3.4-5.0) L 12/09/17 06:00 Triglycerides 74 mg/dL (35-160) 12/07/17 05:00 Cholesterol 80 mg/dL (50-200) 12/07/17 05:00 Total LDL Cholesterol 52 mg/dL (5-100) 12/07/17 05:00 HDL Cholesterol 23 mg/dL (40-60) L 12/07/17 05:00 TSH Cancelled 12/06/17 20:10 Urine Color Ksenia 12/06/17 20:56 Urine Appearance Clear 12/06/17 20:56 Urine pH 5.0 (5.0-8.0) 12/06/17 20:56 Ur Specific Spencer 1.023 (1.001-1.035) 12/06/17 20:56 Urine Protein 1+ (NEGATIVE) H 12/06/17 20:56 Urine Glucose (UA) Negative (NEGATIVE) 12/06/17 20:56 Urine Ketones Trace (NEGATIVE) H 12/06/17 20:56 Urine Blood Negative (NEGATIVE) 12/06/17 20:56 Urine Nitrite Negative (NEGATIVE) 12/06/17 20:56 Urine Bilirubin 2.0 (<2.0 mg/dL) 12/06/17 20:56 Urine Urobilinogen 4.0 e.u/dl mg/dL (0.2-1.0) 12/06/17 20:56 Ur Leukocyte Esterase Negative (NEGATIVE) 12/06/17 20:56 Urine WBC (Auto) 4 /hpf (3-5) 12/06/17 20:56 Urine RBC (Auto) 3 /hpf (0-3) 12/06/17 20:56 Urine Bacteria Rare /hpf (NONE SEEN) 12/06/17 20:56 Hyaline Casts 3 /lpf 12/06/17 20:56 Urine Mucus Few 12/06/17 20:56 Stool Occult Blood Positive (NEGATIVE) 12/09/17 06:15 Blood Type O POSITIVE 12/09/17 12:15 Antibody Screen Negative 12/09/17 12:15 Crossmatch See Detail 12/09/17 12:15 Problem List - Problems (1) Iron deficiency anemia Code(s): D50.9 - IRON DEFICIENCY ANEMIA, UNSPECIFIED (2) Diarrhea Code(s): R19.7 - DIARRHEA, UNSPECIFIED Assessment/Plan An 82 yom with chronic diarrhea, iron deficiency anema and new onset atrial fibrillation with resulting CHF. Started on anticoagulation plan EGD and colonsocopy to r/o inflammatory and intraluminal lesions that could lead to bleeding chronic diarrhea, iron deficiency and low albumin. Hold DAC if possible until GI work up is complete. gastrin lipase, amylase, VIP, esr, crp daily CBC, INR
[2017-12-10 21:05] LABS: HEMATOCRIT 30.6 % (35.4-49); HEMOGLOBIN 9.7 GM/dL (11.7-16.9); MCHC 31.7 g/dl (32.0-35.9); MEAN PLT VOLUME 7.9 fl (7.5-11.1); PLATELET COUNT 194 K/MM3 (134-434); RBC 3.74 M/mm3 (4.00-5.60); RDW 18.9 % (11.9-15.9); WHITE BLOOD COUNT 5.5 K/mm3 (4.0-10.0)
--- NOTE | 2017-12-11 05:51 | PN ---
Physical Exam: SUBJECTIVE: Patient seen and examined by me this AM - One episode of hematochezia in AM; Gi aware; no further episodes noted by pt; Pt denies any further diarrhea; HR well controlled overnight, Cardizem d/c by cards; NPO; Denies any pain, JENKINS/lightheadness, f/c/n/v/d, cp, ab pain, back pain ; still complaining of mild throat soreness OBJECTIVE: Vital Signs Intake & Output 12/08/17 12/09/17 12/10/17 12/11/17 23:59 23:59 23:59 23:59 Intake Total 308 1750 1650 Balance 308 1750 1650 Period Temp Pulse Resp BP Sys/Slaughter Pulse Ox Last 24 Hr 97.9 F-99.3 F 68-102 16-20 95-115/50-71 96-97 GENERAL: Elderly man, NAD, cachectic, A&Ox3 HEAD: NCAT, alopecia EYES: PERRL, extraocular movements intact, sclera anicteric, conjunctiva clear. No ptosis. ENT: Ears normal, nares patent, oropharynx clear without exudates, moist mucous membranes. NECK: Trachea midline, full range of motion, supple. LUNGS: Decreased air entry at bases, no wheezes or rhonchi HEART: IRR IRR, no m/c/g/r ABDOMEN: Soft, nontender, nondistended, normoactive bowel sounds, no guarding, no rebound, no hepatosplenomegaly, no masses. No CVA tenderness EXTREMITIES: 2+ pulses, warm, well-perfused, still with 2+ pitting pedal edema NEUROLOGICAL: Cranial nerves II through XII grossly intact. Normal speech, gait not observed. PSYCH: Normal mood, normal affect. SKIN: Warm, dry, normal turgor, no rashes or lesions noted Laboratory Results - last 24 hr CBC, BMP CBC, BMP 12/11/17 06:00 12/11/17 06:00 12/10/17 14:20 12/09/17 06:00 12/10/17 12/10/17 12/10/17 06:18 06:18 06:18 WBC 6.1 RBC 3.69 L Hgb 9.7 L Hct 30.4 L MCV 82.4 MCH 26.2 MCHC 31.8 L RDW 18.6 H Plt Count 195 MPV 8.0 ESR PT with INR INR PTT (Actin FS) 63.6 H C-Reactive Protein 12.2 H 12/10/17 12/10/17 12/10/17 06:18 07:00 08:50 WBC 5.5 RBC 3.74 L Hgb 9.7 L Hct 30.6 L MCV 82.0 MCH 26.0 MCHC 31.7 L RDW 18.9 H Plt Count 194 MPV 7.9 ESR 15 PT with INR 23.00 H INR 2.04 H D PTT (Actin FS) C-Reactive Protein 12/10/17 12/10/17 11:35 14:20 WBC 6.9 6.3 RBC 4.07 3.74 L Hgb 10.5 L 9.8 L Hct 33.7 L 30.8 L MCV 82.9 82.2 MCH 25.8 26.1 MCHC 31.2 L 31.7 L RDW 18.8 H 19.0 H Plt Count 234 D 197 MPV 7.9 7.6 ESR PT with INR INR PTT (Actin FS) C-Reactive Protein Active Medications Generic Name Dose Route Start Last Admin Trade Name Freq PRN Reason Stop Dose Admin Acetaminophen 650 mg 12/07/17 02:00 Tylenol - PO Q6H PRN FEVER Pantoprazole Sodium 160 mg/ 290 mls @ 14.5 mls/hr 12/10/17 12:00 12/10/17 12: 36 Sodium Chloride IVPB 14.5 mls/hr Q20H [facility] Administration Metoprolol Tartrate 5 mg 12/07/17 11:30 12/07/17 17:45 Lopressor Injection - IVPUSH 5 mg Q4H PRN Administration TACHYCARDIA Metoprolol Tartrate 100 mg 12/08/17 22:00 12/10/17 21:30 Lopressor - PO 100 mg BID STEWART Administration Zinc Sulfate 220 mg 12/07/17 11:45 12/10/17 09:32 Orazinc - PO 220 mg DAILY STEWART Administration Microbiology 12/06/17 22:30 Blood - Peripheral Venous Blood Culture - Preliminary NO GROWTH OBTAINED AFTER 96 HOURS, INCUBATION TO CONTINUE FOR 1 DAYS. 12/06/17 22:30 Blood - Peripheral Venous Blood Culture - Preliminary NO GROWTH OBTAINED AFTER 96 HOURS, INCUBATION TO CONTINUE FOR 1 DAYS. 12/10/17 10:20 Stool Clostridium difficile Antigen (LUIS) - Final 12/10/17 10:20 Stool Clostridium difficile Toxin Assay - Final 12/07/17 08:00 Stool Salmonella/Shigella Culture - Final NO GROWTH OF SALMONELLA OR SHIGELLA SPECIES OBTAINED 12/07/17 08:00 Stool Campylobacter Culture - Final NO GROWTH OF CAMPYLOBACTER SPECIES OBTAINED 12/07/17 08:00 Stool Yersinia Culture - Final NO GROWTH OF YERSINIA SPECIES OBTAINED 12/07/17 08:00 Stool Vibrio Culture - Final 12/07/17 08:00 Stool Escherichia coli 0157 Culture - Final NO GROWTH OF E COLI 0157 OBTAINED 12/06/17 20:56 Urine - Urine Clean Catch Urine Culture - Final Contaminated: Please Repeat 12/07/17 03:35 Nasopharyngeal Swab Influenza Types A,B Antigen (LUIS) - Final 12/07/17 03:35 Nasopharyngeal Swab - Final CXR 12/06 - Imaging reveals a large heart, sclerotic knob, clips by the thoracic inlet, right base granuloma and some atelectasis with pleural reaction at the left base. There may be some left hilar calcifications. A discrete infiltrate or pneumothorax is not seen. There are degenerative changes. The soft tissues are intact. Follow-up recommended. LE duplex 12/06 - IMPRESSION: No evidence of deep vein thrombosis as above. ECHO 12/09 - LV normal size, EF 35-40% w/ global hypokinesia; RV mildly dilated, function mild to moderately reduced; ZAIRA; mod MR, mild TR, mod , mild AR; no effusions ASSESSMENT/PLAN: The patient is a 82 year old male with no significant past medical history, not following PCP, that presents to the hospital today complaining of diarrhea that started 3 weeks ago when he was in [facility]. He was found to have new onset of AFib. Now with iron deficiency anemia and BRBPR x2 this admission. CBC stable, hemo stable. Plan for EGD/colonoscopy tomorrow with Dr. Owens #New onset of A.Fib- HR better controlled overnight, increased to 140s in late AM; ChadsVasc 2; -cardizem d/c'ed by cards - Lopressor increased to 100mg TID -Cardiology consulted, recs appreciated - tele monitoring - Eliquis held in setting of GI bleed - Hold BBSalinazemaki if BP <90 systolic - plan to d/c on Eliquis for correction AC; hold for now w/ possible GI bleed #GI bleed - another episode of BRBPR this AM; GI aware, medical management recommended with EGD/colonoscopy for tomorrow - Serial CBCs - type and screen - IV access x2 - c/w PPI gtt - Transfuse at <7 - GI aware, contact for intervention if hemo-unstable or continuous bleeding noted. - hold AC - Bowel prep overnight - NPO in AM - Transfuse 1unit this PM; goal >10 #CHF secondary to afib - BNP [id number] on presentation; clinically less overloaded today - PO hydration - Strict Is and Os - Cardiology following - monitor UOP, volume status #Diarrhea- llikely viral; recent hx of sick contact and travel to [facility] -f/u stool studies; negative to date - f/u gastrin, VIP - PO hydration - beside commode - c diff stool studies negative #dysgucia/dysphagia - decreased PO intake; negative colonoscopy and 30 Lb loss over past month; no oropharyngeal lesions noted on exam - c/w zinc sulfate - encourage PO intake - Nutrition eval - Plan for EGD/colonoscopy after infectious etiology of diarrhea ruled-out to assess for inflammatory pathology and/or malignancy considering anemia, GI bleed and 30lb wt loss over last month - EGD in AM #normocytic anemia - possibly secondary to chronic GI bleed; FOBT negative; iron deficiency anemia - iron 9, TIBC 116, low iron sat, normal ferritin - ferrous sulfate PO - additional episode of BRBPR this AM - repeat iron studies in 3 months as outpt #LE swelling- LE duplex negative; echo pending -secondary to CHF - judicious hydration #PPX- SCDs FEN PO hydration Daily lytes Clears, NPO after midnight Dispo - Tele Plan discussed with attending, Dr. Kevin Tam, PGY1 Visit type - Emergency Visit Emergency Visit: Yes ED Registration Date: 12/07/17 Care time: The patient presented to the Emergency Department on the above date and was hospitalized for further evaluation of their emergent condition. - New Patient This patient is new to me today: No - Critical Care Critical Care patient: No
[2017-12-11 06:33] LABS: HEMATOCRIT 29.9 % (35.4-49); HEMOGLOBIN 9.8 GM/dL (11.7-16.9); LYMPH % 7.4 % (8-40); MCH 27.1 pg (25.7-33.7); MCHC 32.9 g/dl (32.0-35.9); MEAN CELL VOLUME 82.4 fl (80-96); MEAN PLT VOLUME 8.1 fl (7.5-11.1); MONO % 9.9 % (3.8-10.2); NEUT % 82.7 % (42.8-82.8); PLATELET COUNT 215 K/MM3 (134-434); RBC 3.63 M/mm3 (4.00-5.60); RDW 18.9 % (11.9-15.9); WHITE BLOOD COUNT 6.2 K/mm3 (4.0-10.0)
[2017-12-11 06:48] LABS: ALBUMIN 1.6 g/dl (3.4-5.0); ANION GAP 6 (8-16); BLOOD UREA NITROGEN 11 mg/dL (7-18); CALCIUM 7.4 mg/dL (8.5-10.1); CHLORIDE 111 mmol/L (98-107); CO2 26 mmol/L (21-32); GLUCOSE,RANDOM 79 mg/dL (74-106); POTASSIUM 4.1 mmol/L (3.5-5.1); SODIUM 143 mmol/L (136-145)
[2017-12-11 06:51] LABS: ALK PHOS 86 U/L (45-117); BILIRUBIN,TOTAL 0.5 mg/dL (0.2-1.0); CREATININE 0.5 mg/dL (0.7-1.3); SGPT/ALT 9 U/L (12-78)
[2017-12-11 06:54] LABS: SGOT/AST 4 U/L (15-37)
[2017-12-11] MEDS: METOPROLOL TARTRATE 50 MG TABLET (FP) PO SCH ×3 (09:37→21:07)
[2017-12-11] MEDS: ZINC SULFATE 220 MG CAPSULE (FP) PO SCH (09:37)
--- NOTE | 2017-12-11 10:16 | PN ---
Progress Note, Physician History of Present Illness: Asymptomatic. No acute events - Current Medication List Current Medications: Active Medications Acetaminophen (Tylenol -) 650 mg PO Q6H PRN PRN Reason: FEVER Pantoprazole Sodium 160 mg/ (Sodium Chloride) 290 mls @ 14.5 mls/hr IVPB Q20H [facility] Last Admin: 12/10/17 12:36 Dose: 14.5 mls/hr Metoprolol Tartrate (Lopressor Injection -) 5 mg IVPUSH Q4H PRN PRN Reason: TACHYCARDIA Last Admin: 12/07/17 17:45 Dose: 5 mg Metoprolol Tartrate (Lopressor -) 100 mg PO BID [facility] Last Admin: 12/11/17 09:37 Dose: 100 mg Zinc Sulfate (Orazinc -) 220 mg PO DAILY [facility] Last Admin: 12/11/17 09:37 Dose: 220 mg - Objective Vital Signs: Vital Signs Temperature 98.4 F 12/11/17 09:44 Pulse Rate 120 H 12/11/17 09:44 Respiratory Rate 18 12/11/17 09:44 Blood Pressure 100/59 12/11/17 09:44 O2 Sat by Pulse Oximetry (%) 95 12/11/17 09:00 Constitutional: Yes: No Distress, Calm Gastrointestinal: Yes: Normal Bowel Sounds, Soft. No: Rectal Bleeding, Tenderness, Vomiting Neurological: Yes: Alert Labs: CBC, BMP 12/11/17 06:00 12/11/17 06:00 INR, PTT INR 2.04 (0.82-1.09) H D 12/10/17 07:00 Laboratory Last Values WBC 6.2 K/mm3 (4.0-10.0) 12/11/17 06:00 RBC 3.63 M/mm3 (4.00-5.60) L 12/11/17 06:00 Hgb 9.8 GM/dL (11.7-16.9) L 12/11/17 06:00 Hct 29.9 % (35.4-49) L 12/11/17 06:00 MCV 82.4 fl (80-96) 12/11/17 06:00 MCH 27.1 pg (25.7-33.7) 12/11/17 06:00 MCHC 32.9 g/dl (32.0-35.9) 12/11/17 06:00 RDW 18.9 % (11.9-15.9) H 12/11/17 06:00 Plt Count 215 K/MM3 (134-434) 12/11/17 06:00 MPV 8.1 fl (7.5-11.1) 12/11/17 06:00 Neutrophils % 82.7 % (42.8-82.8) 12/11/17 06:00 Lymphocytes % 7.4 % (8-40) L 12/11/17 06:00 Monocytes % 9.9 % (3.8-10.2) 12/11/17 06:00 Eosinophils % 0.0 % (0-4.5) 12/11/17 06:00 Basophils % 0.0 % (0-2.0) 12/11/17 06:00 ESR 15 mm/hr (0-20) 12/10/17 06:18 PT with INR 23.00 SEC (9.98-11.88) H 12/10/17 07:00 INR 2.04 (0.82-1.09) H D 12/10/17 07:00 PTT (Actin FS) 49.1 SECONDS (26.9-34.4) H 12/11/17 06:00 D-Dimer 652 ng/ml (0-500) H 12/06/17 19:34 Sodium 143 mmol/L (136-145) 12/11/17 06:00 Potassium 4.1 mmol/L (3.5-5.1) 12/11/17 06:00 Chloride 111 mmol/L (98-107) H 12/11/17 06:00 Carbon Dioxide 26 mmol/L (21-32) 12/11/17 06:00 Anion Gap 6 (8-16) L 12/11/17 06:00 BUN 11 mg/dL (7-18) D 12/11/17 06:00 Creatinine 0.5 mg/dL (0.7-1.3) L D 12/11/17 06:00 Creat Clearance w eGFR > 60 (>60) 12/11/17 06:00 Random Glucose 79 mg/dL (74-106) 12/11/17 06:00 Lactic Acid 1.9 mmol/L (0.0-2.0) 12/06/17 22:30 Calcium 7.4 mg/dL (8.5-10.1) L 12/11/17 06:00 Phosphorus 2.6 mg/dL (2.5-4.9) 12/09/17 06:00 Magnesium 1.9 mg/dL (1.8-2.4) 12/09/17 06:00 Iron 9 ug/dL (38-169) L 12/08/17 06:00 TIBC 116 ug/dL (250-450) L 12/08/17 06:00 Iron Saturation 8 % (15-55) L 12/08/17 06:00 Ferritin 53.392 ng/ml (16.4-293.9) 12/08/17 06:00 Total Bilirubin 0.5 mg/dL (0.2-1.0) 12/11/17 06:00 AST 4 U/L (15-37) L 12/11/17 06:00 ALT 9 U/L (12-78) L D 12/11/17 06:00 Alkaline Phosphatase 86 U/L (45-117) 12/11/17 06:00 Creatine Kinase 36 IU/L (39-308) L 12/06/17 19:34 Troponin I 0.03 ng/ml (0.00-0.05) 12/08/17 06:00 C-Reactive Protein 12.2 MG/DL (0.00-0.3) H 12/10/17 06:18 B-Natriuretic Peptide 53542.79 pg/ml (5-450) H 12/06/17 19:34 Total Protein 5.0 g/dl (6.4-8.2) L 12/11/17 06:00 Albumin 1.6 g/dl (3.4-5.0) L 12/11/17 06:00 Triglycerides 74 mg/dL (35-160) 12/07/17 05:00 Cholesterol 80 mg/dL (50-200) 12/07/17 05:00 Total LDL Cholesterol 52 mg/dL (5-100) 12/07/17 05:00 HDL Cholesterol 23 mg/dL (40-60) L 12/07/17 05:00 TSH Cancelled 12/06/17 20:10 Urine Color Ksenia 12/06/17 20:56 Urine Appearance Clear 12/06/17 20:56 Urine pH 5.0 (5.0-8.0) 04/06/18 20:56 Ur Specific [place] 1.023 (1.001-1.035) 12/06/17 20:56 Urine Protein 1+ (NEGATIVE) H 12/06/17 20:56 Urine Glucose (UA) Negative (NEGATIVE) 12/06/17 20:56 Urine Ketones Trace (NEGATIVE) H 12/06/17 20:56 Urine Blood Negative (NEGATIVE) 12/06/17 20:56 Urine Nitrite Negative (NEGATIVE) 12/06/17 20:56 Urine Bilirubin 2.0 (<2.0 mg/dL) 12/06/17 20:56 Urine Urobilinogen 4.0 e.u/dl mg/dL (0.2-1.0) 12/06/17 20:56 Ur Leukocyte Esterase Negative (NEGATIVE) 12/06/17 20:56 Urine WBC (Auto) 4 /hpf (3-5) 12/06/17 20:56 Urine RBC (Auto) 3 /hpf (0-3) 12/06/17 20:56 Urine Bacteria Rare /hpf (NONE SEEN) 12/06/17 20:56 Hyaline Casts 3 /lpf 12/06/17 20:56 Urine Mucus Few 12/06/17 20:56 Stool Occult Blood Positive (NEGATIVE) 12/09/17 06:15 Blood Type O POSITIVE 12/09/17 12:15 Antibody Screen Negative 12/09/17 12:15 Crossmatch See Detail 12/09/17 12:15 Problem List - Problems (1) Iron deficiency anemia Code(s): D50.9 - IRON DEFICIENCY ANEMIA, UNSPECIFIED (2) Diarrhea Code(s): R19.7 - DIARRHEA, UNSPECIFIED (3) Hematochezia Code(s): K92.1 - MELENA Assessment/Plan An 82 yom with chronic diarrhea, iron deficiency anema and new onset atrial fibrillation with resulting CHF. Started on anticoagulation plan EGD and colonsocopy to r/o inflammatory and intraluminal lesions that could lead to bleeding chronic diarrhea, iron deficiency and low albumin. Hold DAC if possible until GI work up is complete. Clear liquid diet and bowel prep today gastrin lipase, amylase, VIP, esr, crp daily CBC, INR
[2017-12-11] MEDS ORDERED: PT OWN MED DRAWER 7, Y5N ONE (10:31)
[2017-12-11] MEDS: PANTOPRAZOLE SODIUM 160 MG in SODIUM CHLORIDE 290 ML IVPB SCH (10:48)
--- NOTE | 2017-12-11 10:57 | PN ---
Progress Note, Physician History of Present Illness: Patient is an 82 yr old man with no significant medical history here today complaining of 2-3 weeks of weakness, shortness of breath, decreased exercise tolerance and diarrhea. He states that he's had chronic diarrhea since returning from [facility]. His daughter states that he does not frequently go to the doctor. He reports having associated edema in his legs bilaterally. He denies chest pain, palpitations. He does not remember feeling acutely worse in the past 48 hours. Denies blood in diarrhea. Endorses fevers, chills, cough. Patient was noted to be in new-onset AFand to have HR in 140s. - Current Medication List Current Medications: Active Medications Acetaminophen (Tylenol -) 650 mg PO Q6H PRN PRN Reason: FEVER Bisacodyl (Dulcolax -) 20 mg PO ONCE ONE Stop: 12/11/17 15:01 Pantoprazole Sodium 160 mg/ (Sodium Chloride) 290 mls @ 14.5 mls/hr IVPB Q20H [facility] Last Admin: 12/11/17 10:48 Dose: 14.5 mls/hr Metoprolol Tartrate (Lopressor Injection -) 5 mg IVPUSH Q4H PRN PRN Reason: TACHYCARDIA Last Admin: 12/07/17 17:45 Dose: 5 mg Metoprolol Tartrate (Lopressor -) 100 mg PO BID [facility] Last Admin: 12/11/17 09:37 Dose: 100 mg Polyethylene Glycol/Electrolytes (Golytely Solution -) 4,000 ml PO ONCE ONE Stop: 12/11/17 18:01 Zinc Sulfate (Orazinc -) 220 mg PO DAILY [facility] Last Admin: 12/11/17 09:37 Dose: 220 mg - Objective Vital Signs: Vital Signs Temperature 98.4 F 12/11/17 09:44 Pulse Rate 120 H 12/11/17 09:44 Respiratory Rate 18 12/11/17 09:44 Blood Pressure 100/59 12/11/17 09:44 O2 Sat by Pulse Oximetry (%) 95 12/11/17 09:00 Eyes: Yes: WNL, Conjunctiva Clear, EOM Intact HENT: Yes: WNL, Atraumatic, Normocephalic Neck: Yes: WNL, Supple, Trachea Midline Cardiovascular: Yes: Pulse Irregular, S1, S2 Respiratory: Yes: WNL, Regular, CTA Bilaterally Gastrointestinal: Yes: WNL, Normal Bowel Sounds Genitourinary: Yes: WNL Musculoskeletal: Yes: WNL Extremities: Yes: WNL Edema: No Integumentary: Yes: WNL Neurological: Yes: WNL, Alert, Oriented ...Motor Strength: WNL Psychiatric: Yes: WNL Labs: CBC, BMP 12/11/17 06:00 12/11/17 06:00 INR, PTT INR 2.04 (0.82-1.09) H D 12/10/17 07:00 Laboratory Tests 12/06/17 12/06/17 12/06/17 19:34 19:34 19:34 WBC 9.6 RBC 4.09 Hgb 10.9 L Hct 34.2 L MCV 83.6 MCH 26.7 MCHC 31.9 L RDW 18.9 H Plt Count 287 MPV 8.4 Neutrophils % 89.9 H Lymphocytes % 2.4 L Monocytes % 7.6 Eosinophils % 0.0 Basophils % 0.1 ESR PT with INR 16.90 H INR 1.50 H PTT (Actin FS) D-Dimer Sodium 138 Potassium 4.4 Chloride 105 Carbon Dioxide 22 Anion Gap 11 BUN 18 Creatinine 0.9 Creat Clearance w eGFR > 60 Random Glucose 114 H Lactic Acid Calcium 7.5 L Phosphorus Magnesium 2.0 Iron TIBC Iron Saturation Ferritin Total Bilirubin 0.6 AST 8 L ALT 19 Alkaline Phosphatase 104 Creatine Kinase 36 L Troponin I 0.06 H C-Reactive Protein B-Natriuretic Peptide 68446.79 H Total Protein 6.0 L Albumin 2.1 L Triglycerides Cholesterol Total LDL Cholesterol HDL Cholesterol TSH 2.65 Urine Color Urine Appearance Urine pH Ur Specific [place] Urine Protein Urine Glucose (UA) Urine Ketones Urine Blood Urine Nitrite Urine Bilirubin Urine Urobilinogen Ur Leukocyte Esterase Urine WBC (Auto) Urine RBC (Auto) Urine Bacteria Hyaline Casts Urine Mucus Stool Occult Blood Blood Type Antibody Screen Crossmatch 12/06/17 12/06/17 12/06/17 19:34 19:49 20:10 WBC RBC Hgb Hct MCV MCH MCHC RDW Plt Count MPV Neutrophils % Lymphocytes % Monocytes % Eosinophils % Basophils % ESR PT with INR INR PTT (Actin FS) D-Dimer 652 H Sodium Potassium Chloride Carbon Dioxide Anion Gap BUN Creatinine Creat Clearance w eGFR Random Glucose Lactic Acid Calcium Phosphorus Magnesium Iron TIBC Iron Saturation Ferritin Total Bilirubin AST ALT Alkaline Phosphatase Creatine Kinase Troponin I C-Reactive Protein B-Natriuretic Peptide Total Protein Albumin Triglycerides Cholesterol Total LDL Cholesterol HDL Cholesterol TSH Cancelled Urine Color Urine Appearance Urine pH Ur Specific [place] Urine Protein Urine Glucose (UA) Urine Ketones Urine Blood Urine Nitrite Urine Bilirubin Urine Urobilinogen Ur Leukocyte Esterase Urine WBC (Auto) Urine RBC (Auto) Urine Bacteria Hyaline Casts Urine Mucus Stool Occult Blood Negative Blood Type Antibody Screen Crossmatch 12/06/17 12/06/17 12/07/17 20:56 22:30 02:00 WBC RBC Hgb Hct MCV MCH MCHC RDW Plt Count MPV Neutrophils % Lymphocytes % Monocytes % Eosinophils % Basophils % ESR PT with INR INR PTT (Actin FS) D-Dimer Sodium Potassium Chloride Carbon Dioxide Anion Gap BUN Creatinine Creat Clearance w eGFR Random Glucose Lactic Acid 1.9 Calcium Phosphorus Magnesium Iron TIBC Iron Saturation Ferritin Total Bilirubin AST ALT Alkaline Phosphatase Creatine Kinase Troponin I 0.05 C-Reactive Protein B-Natriuretic Peptide Total Protein Albumin Triglycerides Cholesterol Total LDL Cholesterol HDL Cholesterol TSH Urine Color [place] Urine Appearance Clear Urine pH 5.0 Ur Specific [place] 1.023 Urine Protein 1+ H Urine Glucose (UA) Negative Urine Ketones Trace H Urine Blood Negative Urine Nitrite Negative Urine Bilirubin 2.0 Urine Urobilinogen 4.0 e.u/dl Ur Leukocyte Esterase Negative Urine WBC (Auto) 4 Urine RBC (Auto) 3 Urine Bacteria Rare Hyaline Casts 3 Urine Mucus Few Stool Occult Blood Blood Type Antibody Screen Crossmatch 12/07/17 12/07/17 12/07/17 05:00 05:00 05:00 WBC 8.9 RBC 3.64 L Hgb 9.9 L Hct 30.0 L MCV 82.6 MCH 27.3 MCHC 33.1 RDW 18.3 H Plt Count 208 D MPV 8.4 Neutrophils % 84.7 H Lymphocytes % 5.3 L D Monocytes % 9.9 Eosinophils % 0.0 Basophils % 0.1 ESR PT with INR INR PTT (Actin FS) D-Dimer Sodium 138 Potassium 3.9 Chloride 106 Carbon Dioxide 23 Anion Gap 9 BUN 19 H Creatinine 0.8 Creat Clearance w eGFR > 60 Random Glucose 91 D Lactic Acid Calcium 7.5 L Phosphorus Magnesium Iron TIBC Iron Saturation Ferritin Total Bilirubin 0.7 AST 5 L D ALT 16 Alkaline Phosphatase 89 Creatine Kinase Troponin I 0.04 C-Reactive Protein B-Natriuretic Peptide Total Protein 5.2 L Albumin 1.8 L Triglycerides 74 Cholesterol 80 Total LDL Cholesterol 52 HDL Cholesterol 23 L TSH Urine Color Urine Appearance Urine pH Ur Specific [place] Urine Protein Urine Glucose (UA) Urine Ketones Urine Blood Urine Nitrite Urine Bilirubin Urine Urobilinogen Ur Leukocyte Esterase Urine WBC (Auto) Urine RBC (Auto) Urine Bacteria Hyaline Casts Urine Mucus Stool Occult Blood Blood Type Antibody Screen Crossmatch 12/07/17 12/07/17 12/08/17 09:00 19:34 06:00 WBC RBC Hgb Hct MCV MCH MCHC RDW Plt Count MPV Neutrophils % Lymphocytes % Monocytes % Eosinophils % Basophils % ESR PT with INR INR PTT (Actin FS) 55.7 H D-Dimer Sodium 139 Potassium 4.2 Chloride 107 Carbon Dioxide 24 Anion Gap 8 BUN 17 Creatinine 0.8 Creat Clearance w eGFR Random Glucose 89 Lactic Acid Calcium 7.3 L Phosphorus 3.2 Magnesium 2.1 Iron TIBC Iron Saturation Ferritin 53.392 Total Bilirubin AST ALT Alkaline Phosphatase Creatine Kinase Troponin I 0.04 0.03 C-Reactive Protein B-Natriuretic Peptide Total Protein Albumin Triglycerides Cholesterol Total LDL Cholesterol HDL Cholesterol TSH Urine Color Urine Appearance Urine pH Ur Specific [place] Urine Protein Urine Glucose (UA) Urine Ketones Urine Blood Urine Nitrite Urine Bilirubin Urine Urobilinogen Ur Leukocyte Esterase Urine WBC (Auto) Urine RBC (Auto) Urine Bacteria Hyaline Casts Urine Mucus Stool Occult Blood Blood Type Antibody Screen Crossmatch 12/08/17 12/08/17 12/08/17 06:00 06:00 06:00 WBC 7.8 RBC 4.03 Hgb 10.8 L Hct 33.3 L MCV 82.7 MCH 26.7 MCHC 32.3 RDW 18.9 H Plt Count 244 MPV 8.6 Neutrophils % 82.9 H Lymphocytes % 7.8 L D Monocytes % 9.2 Eosinophils % 0.0 Basophils % 0.1 ESR PT with INR INR PTT (Actin FS) D-Dimer Sodium Potassium Chloride Carbon Dioxide Anion Gap BUN Creatinine Creat Clearance w eGFR Random Glucose Lactic Acid Calcium Phosphorus Magnesium Iron 9 L TIBC 116 L Iron Saturation 8 L Ferritin Cancelled Total Bilirubin AST ALT Alkaline Phosphatase Creatine Kinase Troponin I C-Reactive Protein B-Natriuretic Peptide Total Protein Albumin Triglycerides Cholesterol Total LDL Cholesterol HDL Cholesterol TSH Urine Color Urine Appearance Urine pH Ur Specific [place] Urine Protein Urine Glucose (UA) Urine Ketones Urine Blood Urine Nitrite Urine Bilirubin Urine Urobilinogen Ur Leukocyte Esterase Urine WBC (Auto) Urine RBC (Auto) Urine Bacteria Hyaline Casts Urine Mucus Stool Occult Blood Blood Type Antibody Screen Crossmatch 12/08/17 12/08/17 12/08/17 06:00 10:00 15:48 WBC RBC Hgb Hct MCV MCH MCHC RDW Plt Count MPV Neutrophils % Lymphocytes % Monocytes % Eosinophils % Basophils % ESR PT with INR INR PTT (Actin FS) 86.5 H D 54.9 H D D-Dimer Sodium Potassium Chloride Carbon Dioxide Anion Gap BUN Creatinine Creat Clearance w eGFR Random Glucose Lactic Acid Calcium Phosphorus Magnesium Iron TIBC Iron Saturation Ferritin Total Bilirubin AST ALT Alkaline Phosphatase Creatine Kinase Troponin I Cancelled C-Reactive Protein B-Natriuretic Peptide Total Protein Albumin Triglycerides Cholesterol Total LDL Cholesterol HDL Cholesterol TSH Urine Color Urine Appearance Urine pH Ur Specific [place] Urine Protein Urine Glucose (UA) Urine Ketones Urine Blood Urine Nitrite Urine Bilirubin Urine Urobilinogen Ur Leukocyte Esterase Urine WBC (Auto) Urine RBC (Auto) Urine Bacteria Hyaline Casts Urine Mucus Stool Occult Blood Blood Type Antibody Screen Crossmatch 12/09/17 12/09/17 12/09/17 06:00 06:00 06:00 WBC 7.3 RBC 4.01 Hgb 10.7 L Hct 32.9 L MCV 82.0 MCH 26.7 MCHC 32.6 RDW 18.8 H Plt Count 239 MPV 8.3 Neutrophils % 84.0 H Lymphocytes % 6.4 L Monocytes % 9.5 Eosinophils % 0.0 Basophils % 0.1 ESR PT with INR INR PTT (Actin FS) 60.3 H D-Dimer Sodium 140 Potassium 4.3 Chloride 109 H Carbon Dioxide 25 Anion Gap 6 L BUN 16 Creatinine 0.7 Creat Clearance w eGFR > 60 Random Glucose 77 Lactic Acid Calcium 7.2 L Phosphorus 2.6 Magnesium 1.9 Iron TIBC Iron Saturation Ferritin Total Bilirubin 0.6 AST 4 L ALT 13 Alkaline Phosphatase 85 Creatine Kinase Troponin I C-Reactive Protein B-Natriuretic Peptide Total Protein 4.9 L Albumin 1.6 L Triglycerides Cholesterol Total LDL Cholesterol HDL Cholesterol TSH Urine Color Urine Appearance Urine pH Ur Specific [place] Urine Protein Urine Glucose (UA) Urine Ketones Urine Blood Urine Nitrite Urine Bilirubin Urine Urobilinogen Ur Leukocyte Esterase Urine WBC (Auto) Urine RBC (Auto) Urine Bacteria Hyaline Casts Urine Mucus Stool Occult Blood Blood Type Antibody Screen Crossmatch 12/09/17 12/09/17 12/10/17 06:15 12:15 06:18 WBC 6.1 RBC 3.69 L Hgb 9.7 L Hct 30.4 L MCV 82.4 MCH 26.2 MCHC 31.8 L RDW 18.6 H Plt Count 195 MPV 8.0 Neutrophils % Lymphocytes % Monocytes % Eosinophils % Basophils % ESR PT with INR INR PTT (Actin FS) D-Dimer Sodium Potassium Chloride Carbon Dioxide Anion Gap BUN Creatinine Creat Clearance w eGFR Random Glucose Lactic Acid Calcium Phosphorus Magnesium Iron TIBC Iron Saturation Ferritin Total Bilirubin AST ALT Alkaline Phosphatase Creatine Kinase Troponin I C-Reactive Protein B-Natriuretic Peptide Total Protein Albumin Triglycerides Cholesterol Total LDL Cholesterol HDL Cholesterol TSH Urine Color Urine Appearance Urine pH Ur Specific [place] Urine Protein Urine Glucose (UA) Urine Ketones Urine Blood Urine Nitrite Urine Bilirubin Urine Urobilinogen Ur Leukocyte Esterase Urine WBC (Auto) Urine RBC (Auto) Urine Bacteria Hyaline Casts Urine Mucus Stool Occult Blood Positive Blood Type O POSITIVE Antibody Screen Negative Crossmatch See Detail 12/10/17 12/10/17 12/10/17 06:18 06:18 06:18 WBC RBC Hgb Hct MCV MCH MCHC RDW Plt Count MPV Neutrophils % Lymphocytes % Monocytes % Eosinophils % Basophils % ESR 15 PT with INR INR PTT (Actin FS) 63.6 H D-Dimer Sodium Potassium Chloride Carbon Dioxide Anion Gap BUN Creatinine Creat Clearance w eGFR Random Glucose Lactic Acid Calcium Phosphorus Magnesium Iron TIBC Iron Saturation Ferritin Total Bilirubin AST ALT Alkaline Phosphatase Creatine Kinase Troponin I C-Reactive Protein 12.2 H B-Natriuretic Peptide Total Protein Albumin Triglycerides Cholesterol Total LDL Cholesterol HDL Cholesterol TSH Urine Color Urine Appearance Urine pH Ur Specific [place] Urine Protein Urine Glucose (UA) Urine Ketones Urine Blood Urine Nitrite Urine Bilirubin Urine Urobilinogen Ur Leukocyte Esterase Urine WBC (Auto) Urine RBC (Auto) Urine Bacteria Hyaline Casts Urine Mucus Stool Occult Blood Blood Type Antibody Screen Crossmatch 12/10/17 12/10/17 12/10/17 07:00 08:50 11:35 WBC 5.5 6.9 RBC 3.74 L 4.07 Hgb 9.7 L 10.5 L Hct 30.6 L 33.7 L MCV 82.0 82.9 MCH 26.0 25.8 MCHC 31.7 L 31.2 L RDW 18.9 H 18.8 H Plt Count 194 234 D MPV 7.9 7.9 Neutrophils % Lymphocytes % Monocytes % Eosinophils % Basophils % ESR PT with INR 23.00 H INR 2.04 H D PTT (Actin FS) D-Dimer Sodium Potassium Chloride Carbon Dioxide Anion Gap BUN Creatinine Creat Clearance w eGFR Random Glucose Lactic Acid Calcium Phosphorus Magnesium Iron TIBC Iron Saturation Ferritin Total Bilirubin AST ALT Alkaline Phosphatase Creatine Kinase Troponin I C-Reactive Protein B-Natriuretic Peptide Total Protein Albumin Triglycerides Cholesterol Total LDL Cholesterol HDL Cholesterol TSH Urine Color Urine Appearance Urine pH Ur Specific [place] Urine Protein Urine Glucose (UA) Urine Ketones Urine Blood Urine Nitrite Urine Bilirubin Urine Urobilinogen Ur Leukocyte Esterase Urine WBC (Auto) Urine RBC (Auto) Urine Bacteria Hyaline Casts Urine Mucus Stool Occult Blood Blood Type Antibody Screen Crossmatch 12/10/17 12/11/17 12/11/17 14:20 06:00 06:00 WBC 6.3 6.2 RBC 3.74 L 3.63 L Hgb 9.8 L 9.8 L Hct 30.8 L 29.9 L MCV 82.2 82.4 MCH 26.1 27.1 MCHC 31.7 L 32.9 RDW 19.0 H 18.9 H Plt Count 197 215 MPV 7.6 8.1 Neutrophils % 82.7 Lymphocytes % 7.4 L Monocytes % 9.9 Eosinophils % 0.0 Basophils % 0.0 ESR PT with INR INR PTT (Actin FS) 49.1 H D-Dimer Sodium Potassium Chloride Carbon Dioxide Anion Gap BUN Creatinine Creat Clearance w eGFR Random Glucose Lactic Acid Calcium Phosphorus Magnesium Iron TIBC Iron Saturation Ferritin Total Bilirubin AST ALT Alkaline Phosphatase Creatine Kinase Troponin I C-Reactive Protein B-Natriuretic Peptide Total Protein Albumin Triglycerides Cholesterol Total LDL Cholesterol HDL Cholesterol TSH Urine Color Urine Appearance Urine pH Ur Specific [place] Urine Protein Urine Glucose (UA) Urine Ketones Urine Blood Urine Nitrite Urine Bilirubin Urine Urobilinogen Ur Leukocyte Esterase Urine WBC (Auto) Urine RBC (Auto) Urine Bacteria Hyaline Casts Urine Mucus Stool Occult Blood Blood Type Antibody Screen Crossmatch 12/11/17 06:00 WBC RBC Hgb Hct MCV MCH MCHC RDW Plt Count MPV Neutrophils % Lymphocytes % Monocytes % Eosinophils % Basophils % ESR PT with INR INR PTT (Actin FS) D-Dimer Sodium 143 Potassium 4.1 Chloride 111 H Carbon Dioxide 26 Anion Gap 6 L BUN 11 D Creatinine 0.5 L D Creat Clearance w eGFR > 60 Random Glucose 79 Lactic Acid Calcium 7.4 L Phosphorus Magnesium Iron TIBC Iron Saturation Ferritin Total Bilirubin 0.5 AST 4 L ALT 9 L D Alkaline Phosphatase 86 Creatine Kinase Troponin I C-Reactive Protein B-Natriuretic Peptide Total Protein 5.0 L Albumin 1.6 L Triglycerides Cholesterol Total LDL Cholesterol HDL Cholesterol TSH Urine Color Urine Appearance Urine pH Ur Specific [place] Urine Protein Urine Glucose (UA) Urine Ketones Urine Blood Urine Nitrite Urine Bilirubin Urine Urobilinogen Ur Leukocyte Esterase Urine WBC (Auto) Urine RBC (Auto) Urine Bacteria Hyaline Casts Urine Mucus Stool Occult Blood Blood Type Antibody Screen Crossmatch Assessment/Plan - Problems (1) Anemia Assessment/Plan: iron deficiency anemia. Stool guaiac positive. Code(s): D64.9 - ANEMIA, UNSPECIFIED (2) Atrial fibrillation with RVR Assessment/Plan: HR better controlled with metoprolol. Increased Metoprollol to 100 TID if needed and if BP tolerates. INR 2.04 on 12/10/2017. Off NOAC for the past 24 hours; restart as soon as possible after GI procedures are performed this week. Code(s): I48.91 - UNSPECIFIED ATRIAL FIBRILLATION (3) Iron deficiency anemia Assessment/Plan: From a cardiac standpoint, there are no absolute contraindications for Mr. El to undergo EGD/colonoscopy. Code(s): D50.9 - IRON DEFICIENCY ANEMIA, UNSPECIFIED (4) Right bundle branch block (RBBB) Code(s): I45.10 - UNSPECIFIED RIGHT BUNDLE-BRANCH BLOCK (5) Swelling of lower extremity Code(s): M79.89 - OTHER SPECIFIED SOFT TISSUE DISORDERS (6) Systolic CHF Assessment/Plan: ECHO: mod-severely reduced LVEF. Pleural effusion. BNP >14,000. Continue metoprolol for AF, CHF. Add ACEI (lisinopril 2.5 mg daily) if renal function, BP allow. Discontinue diltiazem (significantly reduced LVEF). F/u BUN/Cr, electrolytes, daily weight, Is and Os. Code(s): I50.20 - UNSPECIFIED SYSTOLIC (CONGESTIVE) HEART FAILURE (7) Hypoalbuminemia Code(s): E88.09 - [facility] DISORDERS OF PLASMA-PROTEIN METABOLISM, NEC
[2017-12-11] MEDS ORDERED: BISACODYL 5 MG TABLET.DR (FP) PO ONE (15:00)
[2017-12-11 15:18] LABS: HEMATOCRIT 31.5 % (35.4-49); HEMOGLOBIN 10.1 GM/dL (11.7-16.9); MCH 26.3 pg (25.7-33.7); MCHC 31.9 g/dl (32.0-35.9); MEAN CELL VOLUME 82.4 fl (80-96); MEAN PLT VOLUME 8.2 fl (7.5-11.1); PLATELET COUNT 213 K/MM3 (134-434); RBC 3.82 M/mm3 (4.00-5.60); RDW 18.6 % (11.9-15.9); WHITE BLOOD COUNT 5.8 K/mm3 (4.0-10.0)
[2017-12-11 15:35] LABS: INR 1.58 (0.82-1.09); PROTHROMBIN TIME (PATIENT) 17.8 SEC (9.98-11.88)
--- NOTE | 2017-12-11 16:55 | PN ---
Teaching Attending Note Name of Resident: Saurav Tam ATTENDING PHYSICIAN STATEMENT I saw and evaluated the patient. I reviewed the resident's note and discussed the case with the resident. I agree with the resident's findings and plan as documented with exceptions below. SUBJECTIVE: Patient seen and examined, no chest pain,palpitations, dyspnea, dizziness. denies diarrhea or abdominal pain. OBJECTIVE: Vital Signs Period Temp Pulse Resp BP Sys/Slaughter Pulse Ox Last 24 Hr 97.4 F-99.3 F 91-126 17-18 98-118/57-75 95-97 Intake & Output 12/08/17 12/09/17 12/10/17 12/11/17 23:59 23:59 23:59 23:59 Intake Total 308 1750 1530 474 Balance 308 1750 1530 474 General: lying in bed in no acute distress Chest: No rales or wheezing abdomen: soft, NT throughout, ND, positive bowel sounds extremities: no edema Home Medication List Medication Instructions Recorded Confirmed Type NK [No Known Home Medication] 12/06/17 12/06/17 History Active Medications Generic Name Dose Route Start Last Admin Trade Name Freq PRN Reason Stop Dose Admin Acetaminophen 650 mg 12/07/17 02:00 Tylenol - PO Q6H PRN FEVER Pantoprazole Sodium 160 mg/ 290 mls @ 14.5 mls/hr 12/10/17 12:00 12/11/17 10: 48 Sodium Chloride IVPB 14.5 mls/hr Q20H [facility] Administration Metoprolol Tartrate 5 mg 12/07/17 11:30 12/07/17 17:45 Lopressor Injection - IVPUSH 5 mg Q4H PRN Administration TACHYCARDIA Metoprolol Tartrate 100 mg 12/11/17 14:00 12/11/17 14:27 Lopressor - PO 100 mg TID [facility] Administration Polyethylene Glycol/Electrolytes 4,000 ml 12/11/17 18:00 Golytely Solution - PO 12/11/17 18:01 ONCE ONE Zinc Sulfate 220 mg 12/07/17 11:45 12/11/17 09:37 Orazinc - PO 220 mg DAILY [facility] Administration Laboratory Results - last 24 hr 12/07/17 12/09/17 12/10/17 08:00 12:15 08:50 WBC 5.5 RBC 3.74 L Hgb 9.7 L Hct 30.6 L MCV 82.0 MCH 26.0 MCHC 31.7 L RDW 18.9 H Plt Count 194 MPV 7.9 Neutrophils % Lymphocytes % Monocytes % Eosinophils % Basophils % PT with INR INR PTT (Actin FS) Sodium Potassium Chloride Carbon Dioxide Anion Gap BUN Creatinine Creat Clearance w eGFR Random Glucose Calcium Total Bilirubin AST ALT Alkaline Phosphatase Total Protein Albumin Stool O & P Wet [place] Permanent Slide Final report Blood Type O POSITIVE Antibody Screen Negative Crossmatch See Detail 12/10/17 12/11/17 12/11/17 11:35 06:00 06:00 WBC 6.9 6.2 RBC 4.07 3.63 L Hgb 10.5 L 9.8 L Hct 33.7 L 29.9 L MCV 82.9 82.4 MCH 25.8 27.1 MCHC 31.2 L 32.9 RDW 18.8 H 18.9 H Plt Count 234 D 215 MPV 7.9 8.1 Neutrophils % 82.7 Lymphocytes % 7.4 L Monocytes % 9.9 Eosinophils % 0.0 Basophils % 0.0 PT with INR INR PTT (Actin FS) 49.1 H Sodium Potassium Chloride Carbon Dioxide Anion Gap BUN Creatinine Creat Clearance w eGFR Random Glucose Calcium Total Bilirubin AST ALT Alkaline Phosphatase Total Protein Albumin Stool O & P Wet [place] Permanent Slide Blood Type Antibody Screen Crossmatch 12/11/17 12/11/17 12/11/17 06:00 14:10 14:10 WBC 5.8 RBC 3.82 L Hgb 10.1 L Hct 31.5 L MCV 82.4 MCH 26.3 MCHC 31.9 L RDW 18.6 H Plt Count 213 MPV 8.2 Neutrophils % Lymphocytes % Monocytes % Eosinophils % Basophils % PT with INR 17.80 H INR 1.58 H PTT (Actin FS) Sodium 143 Potassium 4.1 Chloride 111 H Carbon Dioxide 26 Anion Gap 6 L BUN 11 D Creatinine 0.5 L D Creat Clearance w eGFR > 60 Random Glucose 79 Calcium 7.4 L Total Bilirubin 0.5 AST 4 L ALT 9 L D Alkaline Phosphatase 86 Total Protein 5.0 L Albumin 1.6 L Stool O & P Wet [place] Permanent Slide Blood Type Antibody Screen Crossmatch Microbiology 12/10/17 10:20 Urine - Urine Clean Catch Urine Culture - Preliminary 12/06/17 22:30 Blood - Peripheral Venous Blood Culture - Preliminary NO GROWTH OBTAINED AFTER 96 HOURS, INCUBATION TO CONTINUE FOR 1 DAYS. 12/06/17 22:30 Blood - Peripheral Venous Blood Culture - Preliminary NO GROWTH OBTAINED AFTER 96 HOURS, INCUBATION TO CONTINUE FOR 1 DAYS. 12/10/17 10:20 Stool Clostridium difficile Antigen (LUIS) - Final 12/10/17 10:20 Stool Clostridium difficile Toxin Assay - Final 12/07/17 08:00 Stool Salmonella/Shigella Culture - Final NO GROWTH OF SALMONELLA OR SHIGELLA SPECIES OBTAINED 12/07/17 08:00 Stool Campylobacter Culture - Final NO GROWTH OF CAMPYLOBACTER SPECIES OBTAINED 12/07/17 08:00 Stool Yersinia Culture - Final NO GROWTH OF YERSINIA SPECIES OBTAINED 12/07/17 08:00 Stool Vibrio Culture - Final 12/07/17 08:00 Stool Escherichia coli 0157 Culture - Final NO GROWTH OF E COLI 0157 OBTAINED 12/06/17 20:56 Urine - Urine Clean Catch Urine Culture - Final Contaminated: Please Repeat 12/07/17 03:35 Nasopharyngeal Swab Influenza Types A,B Antigen (LUIS) - Final 12/07/17 03:35 Nasopharyngeal Swab - Final ASSESSMENT AND PLAN: 82yo M with no PMH but has not seen PMD in several years presented iwth diarrhea and LE swelling for 3 weeks and found to be in afib with RVR in the ER -Acute GI haemorrhage/hematochezia, ?diverticular, low suspicion for upper but cannot r/o AVM, low suspicion for PUD -New onset Afib with RVR -Newly diagnosis 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 viral gastroenteritis given recent visit to [facility] and sick contacts -Dysphagia with dysgucia -LE edema, likely CHF -Iron deficiency anemia Plan: Another episode of hematochezia today. H/h stable. monitor vitals closely. Transfuse 1 unit PRBC for goal > 10. monitor volume status. Plan for EGD/colonoscopy tomorrow if HR stable. Bowel prep. Off diltiazem given poor EF. discussed with cardiology, increase metoprolol. Digoxin if fails to improve with the same. Protonix drip. NPO except meds. Eliquis on hold given above, resume pending GI w/u and resolution of acute GI bleed. 2D echo reviewed, anticipate will need ischemic w/u once symptoms improved, follow up with cardiology. last colonoscopy 2 years ago. Stool studies. Stool studies including C difficile neg so far. Speech/swallow input noted, no oral thrush, Plan as above. . s/p Venofer. Start oral iron suppl. DVTPPX with SCDs dispo pending resolution of active issues.
[2017-12-11] MEDS ORDERED: PEG 3350/NA SULF BICARB CL/KCL 4000 ML SOLN.RECON PO ONE (18:00)
[2017-12-12] MEDS: METOPROLOL TARTRATE 50 MG TABLET (FP) PO SCH ×3 (05:31→22:09)
[2017-12-12] MEDS: PANTOPRAZOLE SODIUM 160 MG in SODIUM CHLORIDE 290 ML IVPB SCH (05:31)
--- NOTE | 2017-12-12 06:02 | PN ---
Physical Exam: SUBJECTIVE: Patient seen and examined - One mucoid bloody BM overnight; NPO after MN, finished bowel prep; Afebrile, VSS overnight; no complaints; denies f/c/n/v, CP, sob, JENKINS, dizziness, ab pain, back pain OBJECTIVE: Vital Signs Intake & Output 12/09/17 12/10/17 12/11/17 12/12/17 23:59 23:59 23:59 23:59 Intake Total 1750 1530 1064 Balance 1750 1530 1064 Period Temp Pulse Resp BP Sys/Slaughter Pulse Ox Last 24 Hr 97.3 F-99 F 102-126 18-20 97-123/52-94 94-95 GENERAL: Elderly man, NAD HEAD: NCAT, alopecia EYES: PERRL, extraocular movements intact, sclera anicteric, conjunctiva clear. No ptosis. ENT: Ears normal, nares patent, oropharynx clear without exudates, moist mucous membranes. NECK: Trachea midline, full range of motion, supple. LUNGS: Decreased air entry at bases, no wheezes or rhonchi HEART: IRR IRR, no m/c/g/r ABDOMEN: Soft, nontender, nondistended, normoactive bowel sounds, no guarding, no rebound, no hepatosplenomegaly, no masses. No CVA tenderness EXTREMITIES: 2+ pulses, warm, well-perfused, 2+ pitting pedal edema NEUROLOGICAL: Cranial nerves II through XII grossly intact. Normal speech, gait not observed. PSYCH: Normal mood, normal affect. SKIN: Warm, dry, normal turgor, no rashes or lesions noted Laboratory Results - last 24 hr CBC, BMP 12/12/17 06:50 12/12/17 06:50 12/11/17 14:10 12/11/17 06:00 12/07/17 12/09/17 12/11/17 08:00 12:15 06:00 WBC RBC Hgb Hct MCV MCH MCHC RDW Plt Count MPV Neutrophils % Lymphocytes % Monocytes % Eosinophils % Basophils % PT with INR INR PTT (Actin FS) 49.1 H Sodium Potassium Chloride Carbon Dioxide Anion Gap BUN Creatinine Creat Clearance w eGFR Random Glucose Calcium Total Bilirubin AST ALT Alkaline Phosphatase Total Protein Albumin Stool O & P Wet Mount O & P Permanent Slide Final report Blood Type O POSITIVE Antibody Screen Negative Crossmatch See Detail 12/11/17 12/11/17 12/11/17 06:00 06:00 14:10 WBC 6.2 5.8 RBC 3.63 L 3.82 L Hgb 9.8 L 10.1 L Hct 29.9 L 31.5 L MCV 82.4 82.4 MCH 27.1 26.3 MCHC 32.9 31.9 L RDW 18.9 H 18.6 H Plt Count 215 213 MPV 8.1 8.2 Neutrophils % 82.7 Lymphocytes % 7.4 L Monocytes % 9.9 Eosinophils % 0.0 Basophils % 0.0 PT with INR INR PTT (Actin FS) Sodium 143 Potassium 4.1 Chloride 111 H Carbon Dioxide 26 Anion Gap 6 L BUN 11 D Creatinine 0.5 L D Creat Clearance w eGFR > 60 Random Glucose 79 Calcium 7.4 L Total Bilirubin 0.5 AST 4 L ALT 9 L D Alkaline Phosphatase 86 Total Protein 5.0 L Albumin 1.6 L Stool O & P Wet [place] O & P Permanent Slide Blood Type Antibody Screen Crossmatch 12/11/17 14:10 WBC RBC Hgb Hct MCV MCH MCHC RDW Plt Count MPV Neutrophils % Lymphocytes % Monocytes % Eosinophils % Basophils % PT with INR 17.80 H INR 1.58 H PTT (Actin FS) Sodium Potassium Chloride Carbon Dioxide Anion Gap BUN Creatinine Creat Clearance w eGFR Random Glucose Calcium Total Bilirubin AST ALT Alkaline Phosphatase Total Protein Albumin Stool O & P Wet [place] O & P Permanent Slide Blood Type Antibody Screen Crossmatch Active Medications Generic Name Dose Route Start Last Admin Trade Name Freq PRN Reason Stop Dose Admin Acetaminophen 650 mg 12/07/17 02:00 Tylenol - PO Q6H PRN FEVER Pantoprazole Sodium 160 mg/ 290 mls @ 14.5 mls/hr 12/10/17 12:00 12/12/17 05: 31 Sodium Chloride IVPB 14.5 mls/hr Q20H STEWART Administration Metoprolol Tartrate 5 mg 12/07/17 11:30 12/07/17 17:45 Lopressor Injection - IVPUSH 5 mg Q4H PRN Administration TACHYCARDIA Metoprolol Tartrate 100 mg 12/11/17 14:00 12/12/17 05:31 Lopressor - PO 100 mg TID STEWART Administration Zinc Sulfate 220 mg 12/07/17 11:45 12/11/17 09:37 Orazinc - PO 220 mg DAILY STEWART Administration Microbiology 12/06/17 22:30 Blood - Peripheral Venous Blood Culture - Final NO GROWTH AFTER 5 DAYS INCUBATION 12/06/17 22:30 Blood - Peripheral Venous Blood Culture - Final NO GROWTH AFTER 5 DAYS INCUBATION 12/10/17 10:20 Urine - Urine Clean Catch Urine Culture - Preliminary 12/10/17 10:20 Stool Clostridium difficile Antigen (LUIS) - Final 12/10/17 10:20 Stool Clostridium difficile Toxin Assay - Final 12/07/17 08:00 Stool Salmonella/Shigella Culture - Final NO GROWTH OF SALMONELLA OR SHIGELLA SPECIES OBTAINED 12/07/17 08:00 Stool Campylobacter Culture - Final NO GROWTH OF CAMPYLOBACTER SPECIES OBTAINED 12/07/17 08:00 Stool Yersinia Culture - Final NO GROWTH OF YERSINIA SPECIES OBTAINED 12/07/17 08:00 Stool Vibrio Culture - Final 12/07/17 08:00 Stool Escherichia coli 0157 Culture - Final NO GROWTH OF E COLI 0157 OBTAINED 12/06/17 20:56 Urine - Urine Clean Catch Urine Culture - Final Contaminated: Please Repeat 12/07/17 03:35 Nasopharyngeal Swab Influenza Types A,B Antigen (LUIS) - Final 12/07/17 03:35 Nasopharyngeal Swab - Final CXR 12/06 - Imaging reveals a large heart, sclerotic knob, clips by the thoracic inlet, right base granuloma and some atelectasis with pleural reaction at the left base. There may be some left hilar calcifications. A discrete infiltrate or pneumothorax is not seen. There are degenerative changes. The soft tissues are intact. Follow-up recommended. LE duplex 12/06 - IMPRESSION: No evidence of deep vein thrombosis as above. ECHO 12/09 - LV normal size, EF 35-40% w/ global hypokinesia; RV mildly dilated, function mild to moderately reduced; ZAIRA; mod MR, mild TR, mod , mild AR; no effusions ASSESSMENT/PLAN: The patient is a 82 year old male with no significant past medical history, not following PCP, that presents to the hospital today complaining of diarrhea that started 3 weeks ago when he was in [facility]. He was found to have new onset of AFib. Now with iron deficiency anemia and BRBPR x2 this admission. CBC stable, hemo stable. Plan for EGD/colonoscopy tomorrow with Dr. Owens #New onset of A.Fib- HR better controlled overnight, increased to 140s in late AM; ChadsVasc 2; - Lopressor 100mg TID -Cardiology consulted, recs appreciated - tele monitoring - Eliquis held in setting of GI bleed - Hold BB, Cardizem if BP <90 systolic; give dig - plan to d/c on Eliquis for mcfp AC; hold for now w/ possible GI bleed #Rectal mass - 6cm mass found on EGD today; biopsied by GI; - Onc and surgical referral - f/u with GI - AFP - CT chest/ab/pelvis for staging - hold all AC #GI bleed - No further episodes overnight; s/p one unit yesterday, appropriate response; likely secondary to neoplasm - Serial CBCs - c/w PPI gtt - Transfuse at <7 - hold AC - EGD results as mentioned above - monitor for further episodes of hematochezia #CHF secondary to afib - BNP 09965 on presentation; clinically less overloaded today - PO hydration - Strict Is and Os - Cardiology following - monitor UOP, volume status #Diarrhea- likely viral; recent hx of sick contact and travel to [facility] -f/u stool studies; negative to date - f/u gastrin, VIP - PO hydration - beside commode - c diff stool studies negative #dysgucia/dysphagia - decreased PO intake; 30 Lb loss over past month; no oropharyngeal lesions noted on exam - c/w zinc sulfate - encourage PO intake - Nutrition eval #normocytic anemia - likely secondary to rectal mass, chronic GI bleeds - iron 9, TIBC 116, low iron sat, normal ferritin - ferrous sulfate PO - repeat iron studies in 3 months as outpt #PPX- SCDs FEN PO hydration Daily lytes Clears Dispo - Tele Plan discussed with attending, Dr. Kevin Tam, PGY1 Visit type - Emergency Visit Emergency Visit: Yes ED Registration Date: 12/07/17 Care time: The patient presented to the Emergency Department on the above date and was hospitalized for further evaluation of their emergent condition. - New Patient This patient is new to me today: No - Critical Care Critical Care patient: No
[2017-12-12 07:46] LABS: MAGNESIUM 2.2 mg/dL (1.8-2.4)
[2017-12-12 07:50] LABS: BASO % 0.1 % (0-2.0); HEMATOCRIT 35.3 % (35.4-49); HEMOGLOBIN 11.4 GM/dL (11.7-16.9); LYMPH % 4.9 % (8-40); MCH 26.6 pg (25.7-33.7); MCHC 32.2 g/dl (32.0-35.9); MEAN CELL VOLUME 82.6 fl (80-96); MEAN PLT VOLUME 8.1 fl (7.5-11.1); MONO % 7.6 % (3.8-10.2); NEUT % 87.4 % (42.8-82.8); PLATELET COUNT 199 K/MM3 (134-434); RBC 4.28 M/mm3 (4.00-5.60); RDW 18.8 % (11.9-15.9); WHITE BLOOD COUNT 10.4 K/mm3 (4.0-10.0)
[2017-12-12 08:04] LABS: BLOOD UREA NITROGEN 11 mg/dl (7-18); CREATININE 0.7 mg/dl (0.6-1.3); GLUCOSE,RANDOM 74 mg/dl (74-106)
[2017-12-12 08:05] LABS: ALBUMIN 1.7 g/dl (3.5-5.0); ALK PHOS 90 U/L (32-92); ANION GAP 9 (8-16); BILIRUBIN,TOTAL 1.1 mg/dl (0.2-1.0); CALCIUM 7.5 mg/dl (8.4-10.2); CHLORIDE 108 mmol/L (98-107); CO2 26 mmol/L (22-28); POTASSIUM 4.2 mmol/L (3.5-5.1); SGOT/AST 7 U/L (10-42); SGPT/ALT 10 U/L (10-40); SODIUM 143 mmol/L (136-145); TOT PROT 5.2 g/dl (6.4-8.3)
--- NOTE | 2017-12-12 08:31 | PN ---
Teaching Attending Note Name of Resident: Saurav Tam ATTENDING PHYSICIAN STATEMENT I saw and evaluated the patient. I reviewed the resident's note and discussed the case with the resident. I agree with the resident's findings and plan as documented with exceptions below. SUBJECTIVE: Patient seen and examined. no dyspnea, chest pain, palpitations, abdominal pain , nausea or vomitting. Has been doing bowel prep with watery BM overnight. OBJECTIVE: Vital Signs Period Temp Pulse Resp BP Sys/Slaughter Pulse Ox Last 24 Hr 97.3 F-99 F 102-126 18-20 97-123/52-94 94-95 Intake & Output 12/09/17 12/10/17 12/11/17 12/12/17 23:59 23:59 23:59 23:59 Intake Total 1750 1530 1064 2003 Balance 1750 1530 1064 2003 General lying in bed in no acute distress Chest good air entry, few basilar rales Abdomen soft, NT, ND, positive bowel sounds Extremities no pedal edema Home Medication List Medication Instructions Recorded Confirmed Type NK [No Known Home Medication] 12/06/17 12/06/17 History Active Medications Generic Name Dose Route Start Last Admin Trade Name Freq PRN Reason Stop Dose Admin Acetaminophen 650 mg 12/07/17 02:00 Tylenol - PO Q6H PRN FEVER Pantoprazole Sodium 160 mg/ 290 mls @ 14.5 mls/hr 12/10/17 12:00 12/12/17 05: 31 Sodium Chloride IVPB 14.5 mls/hr Q20H STEWART Administration Metoprolol Tartrate 5 mg 12/07/17 11:30 12/07/17 17:45 Lopressor Injection - IVPUSH 5 mg Q4H PRN Administration TACHYCARDIA Metoprolol Tartrate 100 mg 12/11/17 14:00 12/12/17 05:31 Lopressor - PO 100 mg TID STEWART Administration Zinc Sulfate 220 mg 12/07/17 11:45 12/11/17 09:37 Orazinc - PO 220 mg DAILY STEWART Administration Laboratory Results - last 24 hr 12/07/17 12/09/17 12/11/17 08:00 12:15 14:10 WBC 5.8 RBC 3.82 L Hgb 10.1 L Hct 31.5 L MCV 82.4 MCH 26.3 MCHC 31.9 L RDW 18.6 H Plt Count 213 MPV 8.2 Neutrophils % Lymphocytes % Monocytes % Eosinophils % Basophils % PT with INR INR Sodium Potassium Chloride Carbon Dioxide Anion Gap BUN Creatinine Creat Clearance w eGFR Random Glucose Calcium Magnesium Total Bilirubin AST ALT Alkaline Phosphatase Total Protein Albumin Stool O & P Wet [place] O & P Permanent Slide Final report Blood Type O POSITIVE Antibody Screen Negative Crossmatch See Detail 12/11/17 12/12/17 12/12/17 14:10 06:50 06:50 WBC 10.4 H D RBC 4.28 Hgb 11.4 L D Hct 35.3 L MCV 82.6 MCH 26.6 MCHC 32.2 RDW 18.8 H Plt Count 199 MPV 8.1 Neutrophils % 87.4 H Lymphocytes % 4.9 L D Monocytes % 7.6 Eosinophils % 0.0 Basophils % 0.1 D PT with INR 17.80 H INR 1.58 H Sodium 143 Potassium 4.2 Chloride 108 H Carbon Dioxide 26 Anion Gap 9 BUN 11 Creatinine 0.7 Creat Clearance w eGFR > 60 Random Glucose 74 Calcium 7.5 L Magnesium 2.2 Total Bilirubin 1.1 H AST 7 L ALT 10 Alkaline Phosphatase 90 Total Protein 5.2 L Albumin 1.7 L Stool O & P Wet Mount O & P Permanent Slide Blood Type Antibody Screen Crossmatch Microbiology 12/06/17 22:30 Blood - Peripheral Venous Blood Culture - Final NO GROWTH AFTER 5 DAYS INCUBATION 12/06/17 22:30 Blood - Peripheral Venous Blood Culture - Final NO GROWTH AFTER 5 DAYS INCUBATION 12/10/17 10:20 Urine - Urine Clean Catch Urine Culture - Preliminary 12/10/17 10:20 Stool Clostridium difficile Antigen (LUIS) - Final 12/10/17 10:20 Stool Clostridium difficile Toxin Assay - Final 12/07/17 08:00 Stool Salmonella/Shigella Culture - Final NO GROWTH OF SALMONELLA OR SHIGELLA SPECIES OBTAINED 12/07/17 08:00 Stool Campylobacter Culture - Final NO GROWTH OF CAMPYLOBACTER SPECIES OBTAINED 12/07/17 08:00 Stool Yersinia Culture - Final NO GROWTH OF YERSINIA SPECIES OBTAINED 12/07/17 08:00 Stool Vibrio Culture - Final 12/07/17 08:00 Stool Escherichia coli 0157 Culture - Final NO GROWTH OF E COLI 0157 OBTAINED 12/06/17 20:56 Urine - Urine Clean Catch Urine Culture - Final Contaminated: Please Repeat 12/07/17 03:35 Nasopharyngeal Swab Influenza Types A,B Antigen (LUIS) - Final 12/07/17 03:35 Nasopharyngeal Swab - Final ASSESSMENT AND PLAN: 82yo M with no PMH but has not seen PMD in several years presented iwth diarrhea and LE swelling for 3 weeks and found to be in afib with RVR in the ER -Acute GI haemorrhage/hematochezia, ?diverticular, low suspicion for upper but cannot r/o AVM, low suspicion for PUD -New onset Afib with RVR -Newly diagnosis 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 viral gastroenteritis given recent visit to [facility] and sick contacts -Dysphagia with dysgucia -LE edema, likely CHF -Iron deficiency anemia Plan: s/p 1 unit pRBC 12/11, hb appropriate, for EGD/colonoscopy today, follow up. Off diltiazem given poor EF.Metoprolol 100 mg TID. HR improved. Digoxin if fails to improve with the same. Protonix drip. NPO except meds. Eliquis on hold given above, resume pending GI w/u and resolution of acute GI bleed. 2D echo reviewed, anticipate will need ischemic w/u once symptoms improved, follow up with cardiology. last colonoscopy 2 years ago. Stool studies. Stool studies including C difficile neg so far. Speech/swallow input noted, no oral thrush, Plan as above. . s/p Venofer. Start oral iron suppl. DVTPPX with SCDs dispo pending resolution of active issues. PT eval in 24 hours and start d/c planning over next 1-2 days if continues to improve.
[2017-12-12 08:40] LABS: INR 1.5 (0.82-1.09)
[2017-12-12] MEDS ORDERED: METOPROLOL TARTRATE 5 MG/5 ML VIAL ONE (13:23)
[2017-12-12] MEDS ORDERED: NEOSTIGMINE METHYLSULFATE 0.5 MG/ML - 10 ML MDV ONE (13:36)
[2017-12-12] MEDS ORDERED: PHENYLEPHRINE HCL 10 MG/1 ML SINGLE DOSE VIAL ONE (13:38)
--- NOTE | 2017-12-12 13:59 | PROC ---
Endoscopy Procedure Endoscopy procedure completed. Please see scanned procedure report. 6 cm rectal semi-circumferential mass was found, extensively biopsies and distal end tattooed. Normal colonocopy otherwise. No NSAIDs, DAC Sx and onc evaluation AFP CT c/a/p with contrast
[2017-12-12] MEDS ORDERED: dilTIAZem HCL 50 MG/10 ML - 10 ML VIAL IVPUSH ONE (14:00)
--- NOTE | 2017-12-12 14:40 | PN ---
Progress Note, Physician Chief Complaint: Pt without complaints. History of Present Illness: Patient is an 82 yr old man with no significant medical history here today complaining of 2-3 weeks of weakness, shortness of breath, decreased exercise tolerance and diarrhea. He states that he's had chronic diarrhea since returning from [facility]. His daughter states that he does not frequently go to the doctor. He reports having associated edema in his legs bilaterally. He denies chest pain, palpitations. He does not remember feeling acutely worse in the past 48 hours. Denies blood in diarrhea. Endorses fevers, chills, cough. Patient was noted to be in new-onset AFand to have HR in 140s. - Current Medication List Current Medications: Active Medications Acetaminophen (Tylenol -) 650 mg PO Q6H PRN PRN Reason: FEVER Pantoprazole Sodium 160 mg/ (Sodium Chloride) 290 mls @ 14.5 mls/hr IVPB Q20H [facility] Last Admin: 12/12/17 05:31 Dose: 14.5 mls/hr Metoprolol Tartrate (Lopressor Injection -) 5 mg IVPUSH Q4H PRN PRN Reason: TACHYCARDIA Last Admin: 12/07/17 17:45 Dose: 5 mg Metoprolol Tartrate (Lopressor -) 100 mg PO TID [facility] Last Admin: 12/12/17 05:31 Dose: 100 mg Zinc Sulfate (Orazinc -) 220 mg PO DAILY [facility] Last Admin: 12/11/17 09:37 Dose: 220 mg - Objective Vital Signs: Vital Signs Temperature 97.7 F 12/12/17 13:48 Pulse Rate 83 12/12/17 14:18 Respiratory Rate 18 12/12/17 14:18 Blood Pressure 100/62 12/12/17 14:18 O2 Sat by Pulse Oximetry (%) 97 12/12/17 14:18 Constitutional: Yes: No Distress Eyes: Yes: WNL HENT: Yes: WNL Neck: Yes: WNL Cardiovascular: Yes: WNL, Tachycardia, Pulse Irregular, S1 (varies in intensity) , S2 (split) Respiratory: Yes: Regular Gastrointestinal: Yes: Soft ...Rectal Exam: Yes: Deferred, Guaiac Positive Genitourinary: No: Anuria Musculoskeletal: Yes: Muscle Weakness Extremities: Yes: WNL Edema: No Peripheral Pulses WNL: Yes Integumentary: Yes: WNL Neurological: Yes: WNL Psychiatric: Yes: WNL Labs: CBC, BMP 12/12/17 06:50 12/12/17 06:50 INR, PTT INR 1.50 (0.82-1.09) H 12/12/17 06:50 Abnormal Lab Results 12/09/17 12/12/17 12/12/17 12:15 06:50 06:50 WBC 10.4 H D Hgb 11.4 L D Hct 35.3 L RDW 18.8 H Neutrophils % 87.4 H Lymphocytes % 4.9 L D PT with INR 17.00 H INR 1.50 H Chloride Calcium Total Bilirubin AST Total Protein Albumin Crossmatch See Detail 12/12/17 06:50 WBC Hgb Hct RDW Neutrophils % Lymphocytes % PT with INR INR Chloride 108 H Calcium 7.5 L Total Bilirubin 1.1 H AST 7 L Total Protein 5.2 L Albumin 1.7 L Crossmatch Problem List - Problems (1) Anemia Assessment/Plan: Anemia; weight loss. Rectal mass found today: carcinoma. Workup in progress. As noted by GI and hematology, no anticoagulation. Code(s): D64.9 - ANEMIA, UNSPECIFIED (2) Atrial fibrillation with RVR Assessment/Plan: HR now controlled with metoprolol. Off NOAC; unable to restart due to GI bleed, finding of rectal carcinoma. Code(s): I48.91 - UNSPECIFIED ATRIAL FIBRILLATION (3) Iron deficiency anemia Code(s): D50.9 - IRON DEFICIENCY ANEMIA, UNSPECIFIED (4) Right bundle branch block (RBBB) Code(s): I45.10 - UNSPECIFIED RIGHT BUNDLE-BRANCH BLOCK (5) Swelling of lower extremity Code(s): M79.89 - OTHER SPECIFIED SOFT TISSUE DISORDERS (6) Systolic CHF Assessment/Plan: ECHO: mod-severely reduced LVEF. Pleural effusion. BNP >14,000. Continue metoprolol for AF, CHF. Add ACEI (lisinopril 2.5 mg daily) if renal function, BP allow. Discontinued diltiazem (significantly reduced LVEF). F/u BUN/Cr, electrolytes, daily weight, Is and Os. Code(s): I50.20 - UNSPECIFIED SYSTOLIC (CONGESTIVE) HEART FAILURE (7) Hypoalbuminemia Code(s): E88.09 - OT DISORDERS OF PLASMA-PROTEIN METABOLISM, NEC
[2017-12-12] MEDS: ZINC SULFATE 220 MG CAPSULE (FP) PO SCH (15:36)
--- NOTE | 2017-12-12 17:20 | CONSULT ---
Consult Consult Specialty:: Oncology Reason for Consultation:: Rectal mass - History of Present Illness History of Present Illness: 82yo M admitted with FTT, found to have anemia, new onset afib and new onset sCHF. Colonscopy was found to have a rectal mass. Oncology consulted for the above Pt seen and examined - History Source History Provided By: Patient, Medical Record - Past Surgical History Additional Surgical History: Cyst removal from his throat - Alcohol/Substance Use Hx Alcohol Use: No History of Substance Use: reports: None - Smoking History Smoking history: Former smoker Home Medications - Allergies Allergies/Adverse Reactions: Allergies Allergy/AdvReac Type Severity Reaction Status Date / Time No Known Allergies Allergy Verified 12/06/17 18:32 - Home Medications Home Medications: Ambulatory Orders NK [No Known Home Medication] 12/06/17 Physical Exam Vital Signs: Vital Signs Temperature 97.7 F 12/12/17 14:55 Pulse Rate 100 H 12/12/17 14:55 Respiratory Rate 20 12/12/17 14:55 Blood Pressure 102/56 12/12/17 14:55 O2 Sat by Pulse Oximetry (%) 98 12/12/17 14:55 Constitutional: Yes: No Distress, Calm Eyes: Yes: Conjunctiva Clear HENT: Yes: Atraumatic, Normocephalic Neck: Yes: Supple, Trachea Midline Cardiovascular: Yes: Regular Rate and Rhythm Respiratory: Yes: Regular, CTA Bilaterally Gastrointestinal: Yes: Normal Bowel Sounds, Soft Musculoskeletal: Yes: WNL Extremities: Yes: WNL Edema: No Neurological: Yes: Alert, Oriented Labs: CBC, BMP 12/12/17 06:50 12/12/17 06:50 Assessment/Plan Rectal mass: Await pathology CEA Staging CT scans ( already ordered) if localized, chemo would likely be challenging in the setting of his cardiac co -morbids (EF of 36 % as rectal ca are treated with 5FU based therapy. Yet to make a final plan pending above. Petar c/s
[2017-12-13] MEDS: PANTOPRAZOLE SODIUM 160 MG in SODIUM CHLORIDE 290 ML IVPB SCH (00:25)
--- NOTE | 2017-12-13 06:01 | PN ---
Physical Exam: SUBJECTIVE: Patient seen and examined No major overnight events; intermittently tachy to 130s, bp in 90s systolic; No more episodes of hematochezia; pt endorses 1-2 bouts of diarrhea overnight, stooling in bedside commode; No complaints; denies JENKINS, dizziness, CP, sob, ab pain, back pain, neuro symptoms; still endorsing LE edema; Pt informed about colonoscopy results, no questions at this time - Tele with afib with RVR, tachy to 150s around 12AM OBJECTIVE: Vital Signs CBC, [facility] 12/12/17 06:50 12/12/17 06:50 Period Temp Pulse Resp BP Sys/Slaughter Pulse Ox Last 24 Hr 97.3 F-98.4 F 83-130 17-20 95-119/51-77 91-100 GENERAL: Elderly man, NAD, A&Ox3 HEAD: NCAT, alopecia EYES: PERRL, extraocular movements intact, sclera anicteric, conjunctiva clear. No ptosis. ENT: Ears normal, nares patent, oropharynx clear without exudates, moist mucous membranes. NECK: Trachea midline, full range of motion, supple. LUNGS: CTABL, no wheezes or rhonchi HEART: IRR IRR, no m/c/g/r ABDOMEN: Scaphoid. Soft, nontender, nondistended, normoactive bowel sounds, no guarding, no rebound, no hepatosplenomegaly, no masses. No CVA tenderness EXTREMITIES: 2+ pulses, warm, well-perfused, still with 2+ pitting pedal edema to midshank NEUROLOGICAL: Cranial nerves II through XII grossly intact. Normal speech, gait not observed. PSYCH: Normal mood, normal affect. SKIN: Warm, dry, normal turgor, no rashes or lesions noted Laboratory Results - last 24 hr CBC, [facility] 12/13/17 06:32 12/12/17 06:50 12/12/17 06:50 12/09/17 12/10/17 12/12/17 12:15 06:18 06:50 WBC 10.4 H D RBC 4.28 Hgb 11.4 L D Hct 35.3 L MCV 82.6 MCH 26.6 MCHC 32.2 RDW 18.8 H Plt Count 199 MPV 8.1 Neutrophils % 87.4 H Lymphocytes % 4.9 L D Monocytes % 7.6 Eosinophils % 0.0 Basophils % 0.1 D PT with INR INR Sodium Potassium Chloride Carbon Dioxide Anion Gap BUN Creatinine Creat Clearance w eGFR Random Glucose Calcium Magnesium Total Bilirubin AST ALT Alkaline Phosphatase Total Protein Albumin Gastrin 27 Crossmatch See Detail 12/12/17 12/12/17 06:50 06:50 WBC RBC Hgb Hct MCV MCH MCHC RDW Plt Count MPV Neutrophils % Lymphocytes % Monocytes % Eosinophils % Basophils % PT with INR 17.00 H INR 1.50 H Sodium 143 Potassium 4.2 Chloride 108 H Carbon Dioxide 26 Anion Gap 9 BUN 11 Creatinine 0.7 Creat Clearance w eGFR > 60 Random Glucose 74 Calcium 7.5 L Magnesium 2.2 Total Bilirubin 1.1 H AST 7 L ALT 10 Alkaline Phosphatase 90 Total Protein 5.2 L Albumin 1.7 L Gastrin Crossmatch Active Medications Generic Name Dose Route Start Last Admin Trade Name Freq PRN Reason Stop Dose Admin Acetaminophen 650 mg 12/07/17 02:00 Tylenol - PO Q6H PRN FEVER Pantoprazole Sodium 160 mg/ 290 mls @ 14.5 mls/hr 12/10/17 12:00 12/13/17 00: 25 Sodium Chloride IVPB Not Given Q20H STEWART Metoprolol Tartrate 5 mg 12/07/17 11:30 12/07/17 17:45 Lopressor Injection - IVPUSH 5 mg Q4H PRN Administration TACHYCARDIA Metoprolol Tartrate 100 mg 12/11/17 14:00 12/12/17 22:09 Lopressor - PO 100 mg TID SETWART Administration Zinc Sulfate 220 mg 12/07/17 11:45 12/12/17 15:36 Orazinc - PO Not Given DAILY [facility] Microbiology 12/10/17 10:20 Urine - Urine Clean Catch Urine Culture - Final Contaminated: Please Repeat 12/06/17 22:30 Blood - Peripheral Venous Blood Culture - Final NO GROWTH AFTER 5 DAYS INCUBATION 12/06/17 22:30 Blood - Peripheral Venous Blood Culture - Final NO GROWTH AFTER 5 DAYS INCUBATION 12/10/17 10:20 Stool Clostridium difficile Antigen (LUIS) - Final 12/10/17 10:20 Stool Clostridium difficile Toxin Assay - Final 12/07/17 08:00 Stool Salmonella/Shigella Culture - Final NO GROWTH OF SALMONELLA OR SHIGELLA SPECIES OBTAINED 12/07/17 08:00 Stool Campylobacter Culture - Final NO GROWTH OF CAMPYLOBACTER SPECIES OBTAINED 12/07/17 08:00 Stool Yersinia Culture - Final NO GROWTH OF YERSINIA SPECIES OBTAINED 12/07/17 08:00 Stool Vibrio Culture - Final 12/07/17 08:00 Stool Escherichia coli 0157 Culture - Final NO GROWTH OF E COLI 0157 OBTAINED 12/06/17 20:56 Urine - Urine Clean Catch Urine Culture - Final Contaminated: Please Repeat 12/07/17 03:35 Nasopharyngeal Swab Influenza Types A,B Antigen (LUIS) - Final 12/07/17 03:35 Nasopharyngeal Swab - Final CXR 12/06 - Imaging reveals a large heart, sclerotic knob, clips by the thoracic inlet, right base granuloma and some atelectasis with pleural reaction at the left base. There may be some left hilar calcifications. A discrete infiltrate or pneumothorax is not seen. There are degenerative changes. The soft tissues are intact. Follow-up recommended. LE duplex 12/06 - IMPRESSION: No evidence of deep vein thrombosis as above. ECHO 12/09 - LV normal size, EF 35-40% w/ global hypokinesia; RV mildly dilated, function mild to moderately reduced; ZAIRA; mod MR, mild TR, mod , mild AR; no effusions Chest/ab/pelvis CT 12/12 - Chest - 1. Right upper lobe traction bronchiectasis with large semisolid nodular opacity as described above may be primary neoplasm , posttreatment changes from prior neoplasm and/or postinfectious/ postinflammatory. Please correlate clinically and compared to prior chest CT, if available. PET/CT and/or histopathologic correlation may be helpful. 2. Small to moderate-sized lateral layering pleural effusions (left larger than right), with multisegment compressive atelectasis in both lung bases. 3. No evidence of pulmonary metastasis or metastatic lymphadenopathy within the chest. 4. Cardiomegaly. Chest and abdominal wall edema with small volume of free fluid in the abdomen may be secondary to third spacing. Please correlate for CHF exacerbation. Abdomen/pelvis - 1. 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 2. Inhomogeneous enhancement in the right hepatic lobe and hyperenhancement throughout the left hepatic lobe may be attributed to arterial shunting. Lesions in the left hepatic lobe are incompletely characterized. Further evaluation with multiphase contrast-enhanced MRI of the liver is recommended to better evaluate for metastatic disease. 3. Enlarged prostate gland. Please correlate with PSA and physical exam. 4. A 1.6 cm urinary bladder calculus. Circumferentially prominent urinary bladder wall may be attributed to underdistention and/or chronic outlet obstruction. Cystitis is not excluded. ASSESSMENT/PLAN: The patient is a 82 year old male with no significant past medical history, not following PCP, that presents to the hospital today complaining of diarrhea that started 3 weeks ago when he was in [facility]. He was found to have new onset of AFib. Now with iron deficiency anemia and BRBPR x2 this admission. Colonoscopy notable for 6cm rectal mass, Onc and general surgery consulted. Plan for staging and possible resection by Dr. Hewitt after pt receives cardiac clearance. #Rectal mass - 6cm mass found on EGD today, further characterized on ab/pelvis CT; biopsied by GI; - Onc and surgical referral - f/u with GI - AFP, CEA pending - CT chest/ab/pelvis results as noted above - hold all AC - General surgery amenable to resection pending cardiac clearance - Unlikely chemotx candidate given cardiac comorbities, however awaiting further recs - Triple phase abdominal MRI to further characterize liver lesions note on CT findings #New onset of A.Fib- HR better controlled, brief episode of RVR to 150s at midnight; ChadsVasc 2; - c/w Lopressor 100mg TID -Cardiology consulted, recs appreciated - tele monitoring - Eliquis held in setting of GI bleed - Hold BB, Cardizem if BP <90 systolic; give dig - plan to d/c on Eliquis for 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 AC; hold for now - Will require cardiac clearance for possible resection of rectal mass #GI bleed - No further episodes overnight; Hgb stable at 11.6; s/p 1 unit prbcs ; likely secondary to neoplasm - Serial CBCs - d/cPPI gtt - Transfuse at <7 - hold AC - EGD results as mentioned above - monitor for further episodes of hematochezia #CHF secondary to afib - BNP 41013 on presentation; clinically less overloaded today - PO hydration - Strict Is and Os - Cardiology following - monitor UOP, volume status #Enlarged Prostate - CT confirmed - send PSA - outpt urology f/u - monitor for signs of retention #Diarrhea- likely viral; recent hx of sick contact and travel to [facility]; improving -f/u stool studies; negative to date - f/u gastrin, VIP - PO hydration - beside commode - c diff stool studies negative #dysgucia/dysphagia - decreased PO intake; 30 Lb loss over past month; no oropharyngeal lesions noted on exam - c/w zinc sulfate - encourage PO intake - Nutrition eval #normocytic anemia - likely secondary to rectal mass, chronic GI bleeds - iron 9, TIBC 116, low iron sat, normal ferritin - repeat iron studies in 3 months as outpt #PPX- SCDs HSQ FEN PO hydration Daily lytes Clears Dispo - Tele Plan discussed with attending, Dr. Kevin Tam, PGY1 Visit type - Emergency Visit Emergency Visit: Yes ED Registration Date: 12/07/17 Care time: The patient presented to the Emergency Department on the above date and was hospitalized for further evaluation of their emergent condition. - New Patient This patient is new to me today: No - Critical Care Critical Care patient: No - Discharge Referral Referred to [facility] Med [facility].C.: No
[2017-12-13] MEDS: METOPROLOL TARTRATE 50 MG TABLET (FP) PO SCH ×3 (06:40→22:39)
--- NOTE | 2017-12-13 06:49 | CONSULT ---
Consult Consult Specialty:: general surgery Referred by:: Alvino Owens MD Reason for Consultation:: rectal mass - History of Present Illness Chief Complaint: Diarrhea aand weakness History of Present Illness: 82 yo male with unknown past medical history, not following PCP, recent immigrant presented to the hospital today complaining of diarrhea that started 3 weeks ago when he was in [facility]. He came 10 days ago and continue to have multiple loose bowel movements. He also reports weakness. He denies sick contacts, changing dietary habits. In the emergency room he was found to have rapid atrial fibrillation and fever. He also endorses lower extremity swelling and SOB when walking or climbing stairs that is present for long time. On lower endoscopy he was found to have a 6 cm rectal semi-circumferential mass, extensive biopsies sent and distal end tattooed. Normal colonocopy otherwise. we were asked to assess. - History Source History Provided By: Patient, Family Member, Medical Record Limitations to Obtaining History: No Limitations - Past Medical History Cardio/Vascular: Yes: AFIB - Past Surgical History Additional Surgical History: Cyst removal from his throat - Alcohol/Substance Use Hx Alcohol Use: No History of Substance Use: reports: None - Smoking History Smoking history: Former smoker - Social History Place of : Other ([facility]) History of Recent Travel: Yes Home Medications - Allergies Allergies/Adverse Reactions: Allergies Allergy/AdvReac Type Severity Reaction Status Date / Time No Known Allergies Allergy Verified 12/06/17 18:32 - Home Medications Home Medications: Ambulatory Orders NK [No Known Home Medication] 12/06/17 Review of Systems - Review of Systems Constitutional: reports: Fever. denies: Chills Eyes: denies: Blind Spots, Recent Change in Vision HENT: denies: Difficult Swallowing, Throat Pain Cardiovascular: denies: Chest Pain, Palpitations Respiratory: denies: Cough, SOB Gastrointestinal: reports: Abdominal Pain, Bloating, Constipation Genitourinary: denies: Discharge, Dysuria Breasts: reports: No Symptoms Reported. denies: Pain Musculoskeletal: denies: Muscle Pain, Muscle Weakness Integumentary: denies: Lesions, Rash Neurological: denies: Seizure, Syncope Endocrine: denies: Unexplained Weight Gain, Unexplained Weight Loss Hematology/Lymphatic: denies: Easily Bruised, Excessive Bleeding Psychiatric: denies: Anxiety, Depression Physical Exam Vital Signs: Vital Signs Temperature 97.3 F L 12/13/17 05:55 Pulse Rate 118 H 12/13/17 05:55 Respiratory Rate 20 12/13/17 05:55 Blood Pressure 98/60 12/13/17 05:55 O2 Sat by Pulse Oximetry (%) 95 12/12/17 21:45 Vital Signs Period Temp Pulse Resp BP Sys/Slaughter Pulse Ox Last 24 Hr 97.3 F-98.4 F 83-130 17-20 95-119/51-77 91-100 Constitutional: Yes: No Distress, Calm, Cachectic, Thin Eyes: Yes: Conjunctiva Clear, EOM Intact HENT: Yes: Atraumatic, Normocephalic Neck: Yes: Supple, Trachea Midline Cardiovascular: Yes: Regular Rate and Rhythm, S1, S2. No: Murmur Respiratory: Yes: Regular, CTA Bilaterally Gastrointestinal: Yes: Normal Bowel Sounds, Soft, Distention. No: Tenderness, Tenderness, Epigastrium, Tenderness, Rebound ...Rectal Exam: Yes: Mass (at 1 finger length), Sphincter Tone Normal. No: Hemorrhoids/External Renal/: No: CVA Tenderness - Left, CVA Tenderness - Right Musculoskeletal: No: Muscle Pain, Muscle Weakness Extremities: No: Cool, Cyanosis Edema: No Peripheral Pulses WNL: Yes Integumentary: No: Jaundice, Rash Neurological: Yes: Alert, Oriented Psychiatric: Yes: Alert, Oriented Labs: CBC, BMP 12/12/17 06:50 12/12/17 06:50 Imaging - Results Cat Scan: Report Reviewed (CT chest abdomen and pelvis large pelic mass no clear sign of mets), Image Reviewed Problem List - Problems (1) Mass in rectum Assessment/Plan: 82 yo male with unknown PMH but likely deconpensated CHF, untreated Afib with RVR, Anemia and newly diagnosed Rectal Mass Medical optimization Cardiology clearance (EF 36%) Metastatic Workup Medical oncology evaluation for neoadjuvent therapy f/u path, tumor markers nutritional optimization Will discuss with patient and family surgical options Thank you for the opportunity to participate in the care of this patient. Code(s): K62.9 - DISEASE OF ANUS AND RECTUM, UNSPECIFIED (2) Anemia Code(s): D64.9 - ANEMIA, UNSPECIFIED (3) Atrial fibrillation with RVR Code(s): I48.91 - UNSPECIFIED ATRIAL FIBRILLATION (4) Hypoalbuminemia Code(s): E88.09 - OTH DISORDERS OF PLASMA-PROTEIN METABOLISM, NEC (5) Right bundle branch block (RBBB) Code(s): I45.10 - UNSPECIFIED RIGHT BUNDLE-BRANCH BLOCK (6) Swelling of lower extremity Code(s): M79.89 - OTHER SPECIFIED SOFT TISSUE DISORDERS (7) Systolic CHF Code(s): I50.20 - UNSPECIFIED SYSTOLIC (CONGESTIVE) HEART FAILURE
[2017-12-13 07:52] LABS: ALBUMIN 1.6 g/dl (3.4-5.0); ANION GAP 11 (8-16); BLOOD UREA NITROGEN 13 mg/dL (7-18); CALCIUM 7.5 mg/dL (8.5-10.1); CHLORIDE 109 mmol/L (98-107); CO2 23 mmol/L (21-32); GLUCOSE,RANDOM 74 mg/dL (74-106); MAGNESIUM 2.2 mg/dL (1.8-2.4); SODIUM 143 mmol/L (136-145)
[2017-12-13 07:53] LABS: BASO % 0.1 % (0-2.0); HEMOGLOBIN 11.6 GM/dL (11.7-16.9); LYMPH % 3.8 % (8-40); MCH 26.6 pg (25.7-33.7); MCHC 32.2 g/dl (32.0-35.9); MEAN CELL VOLUME 82.6 fl (80-96); MEAN PLT VOLUME 8.1 fl (7.5-11.1); MONO % 6.5 % (3.8-10.2); NEUT % 89.6 % (42.8-82.8); PLATELET COUNT 198 K/MM3 (134-434); RBC 4.36 M/mm3 (4.00-5.60); RDW 18.7 % (11.9-15.9); WHITE BLOOD COUNT 12.1 K/mm3 (4.0-10.0)
[2017-12-13 07:56] LABS: ALK PHOS 77 U/L (45-117); BILIRUBIN,TOTAL 0.9 mg/dL (0.2-1.0); CREATININE 0.8 mg/dL (0.7-1.3); PHOSPHOROUS 3.2 mg/dL (2.5-4.9); SGOT/AST 7 U/L (15-37); SGPT/ALT 9 U/L (12-78); TOT PROT 5.1 g/dl (6.4-8.2)
--- NOTE | 2017-12-13 09:03 | PN ---
Progress Note, Physician History of Present Illness: Asymptomatic. No acute events - Current Medication List Current Medications: Active Medications Acetaminophen (Tylenol -) 650 mg PO Q6H PRN PRN Reason: FEVER Metoprolol Tartrate (Lopressor Injection -) 5 mg IVPUSH Q4H PRN PRN Reason: TACHYCARDIA Last Admin: 12/07/17 17:45 Dose: 5 mg Metoprolol Tartrate (Lopressor -) 100 mg PO TID [facility] Last Admin: 12/13/17 06:40 Dose: 100 mg Zinc Sulfate (Orazinc -) 220 mg PO DAILY [facility] Last Admin: 12/12/17 15:36 Dose: Not Given - Objective Vital Signs: Vital Signs Temperature 97.3 F L 12/13/17 05:55 Pulse Rate 118 H 12/13/17 05:55 Respiratory Rate 20 12/13/17 05:55 Blood Pressure 98/60 12/13/17 05:55 O2 Sat by Pulse Oximetry (%) 95 12/12/17 21:45 Constitutional: Yes: No Distress, Calm, Pallor, Thin Gastrointestinal: Yes: Soft. No: Melena, Rectal Bleeding, Tenderness Neurological: Yes: Alert, Oriented Labs: CBC, BMP 12/13/17 06:32 12/13/17 06:32 INR, PTT INR 1.50 (0.82-1.09) H 12/12/17 06:50 Laboratory Last Values WBC 12.1 K/mm3 (4.0-10.0) H 12/13/17 06:32 RBC 4.36 M/mm3 (4.00-5.60) 12/13/17 06:32 Hgb 11.6 GM/dL (11.7-16.9) L 12/13/17 06:32 Hct 36.0 % (35.4-49) 12/13/17 06:32 MCV 82.6 fl (80-96) 12/13/17 06:32 MCH 26.6 pg (25.7-33.7) 12/13/17 06:32 MCHC 32.2 g/dl (32.0-35.9) 12/13/17 06:32 RDW 18.7 % (11.9-15.9) H 12/13/17 06:32 Plt Count 198 K/MM3 (134-434) 12/13/17 06:32 MPV 8.1 fl (7.5-11.1) 12/13/17 06:32 Neutrophils % 89.6 % (42.8-82.8) H 12/13/17 06:32 Lymphocytes % 3.8 % (8-40) L D 12/13/17 06:32 Monocytes % 6.5 % (3.8-10.2) 12/13/17 06:32 Eosinophils % 0.0 % (0-4.5) 12/13/17 06:32 Basophils % 0.1 % (0-2.0) 12/13/17 06:32 ESR 15 mm/hr (0-20) 12/10/17 06:18 PT with INR 17.00 SEC (9.98-11.88) H 12/12/17 06:50 INR 1.50 (0.82-1.09) H 12/12/17 06:50 PTT (Actin FS) 49.1 SECONDS (26.9-34.4) H 12/11/17 06:00 D-Dimer 652 ng/ml (0-500) H 12/06/17 19:34 Sodium 143 mmol/L (136-145) 12/13/17 06:32 Potassium 4.0 mmol/L (3.5-5.1) 12/13/17 06:32 Chloride 109 mmol/L (98-107) H 12/13/17 06:32 Carbon Dioxide 23 mmol/L (21-32) 12/13/17 06:32 Anion Gap 11 (8-16) 12/13/17 06:32 BUN 13 mg/dL (7-18) 12/13/17 06:32 Creatinine 0.8 mg/dL (0.7-1.3) D 12/13/17 06:32 Creat Clearance w eGFR > 60 (>60) 12/13/17 06:32 Random Glucose 74 mg/dL (74-106) 12/13/17 06:32 Lactic Acid 1.9 mmol/L (0.0-2.0) 12/06/17 22:30 Calcium 7.5 mg/dL (8.5-10.1) L 12/13/17 06:32 Phosphorus 3.2 mg/dL (2.5-4.9) D 04/13/18 06:32 Magnesium 2.2 mg/dL (1.8-2.4) 12/13/17 06:32 Iron 9 ug/dL (38-169) L 12/08/17 06:00 TIBC 116 ug/dL (250-450) L 12/08/17 06:00 Iron Saturation 8 % (15-55) L 12/08/17 06:00 Ferritin 53.392 ng/ml (16.4-293.9) 12/08/17 06:00 Total Bilirubin 0.9 mg/dL (0.2-1.0) D 12/13/17 06:32 AST 7 U/L (15-37) L D 12/13/17 06:32 ALT 9 U/L (12-78) L 12/13/17 06:32 Alkaline Phosphatase 77 U/L (45-117) 12/13/17 06:32 Creatine Kinase 36 IU/L (39-308) L 12/06/17 19:34 Troponin I 0.03 ng/ml (0.00-0.05) 12/08/17 06:00 C-Reactive Protein 12.2 MG/DL (0.00-0.3) H 12/10/17 06:18 B-Natriuretic Peptide 21309.79 pg/ml (5-450) H 12/06/17 19:34 Total Protein 5.1 g/dl (6.4-8.2) L 12/13/17 06:32 Albumin 1.6 g/dl (3.4-5.0) L 12/13/17 06:32 Triglycerides 74 mg/dL (35-160) 12/07/17 05:00 Cholesterol 80 mg/dL (50-200) 12/07/17 05:00 Total LDL Cholesterol 52 mg/dL (5-100) 12/07/17 05:00 HDL Cholesterol 23 mg/dL (40-60) L 12/07/17 05:00 Gastrin 27 pg/mL (0-115) 12/10/17 06:18 TSH Cancelled 12/06/17 20:10 Urine Color Ksenia 12/06/17 20:56 Urine Appearance Clear 12/06/17 20:56 Urine pH 5.0 (5.0-8.0) 12/06/17 20:56 Ur Specific Arthur 1.023 (1.001-1.035) 12/06/17 20:56 Urine Protein 1+ (NEGATIVE) H 12/06/17 20:56 Urine Glucose (UA) Negative (NEGATIVE) 12/06/17 20:56 Urine Ketones Trace (NEGATIVE) H 12/06/17 20:56 Urine Blood Negative (NEGATIVE) 12/06/17 20:56 Urine Nitrite Negative (NEGATIVE) 12/06/17 20:56 Urine Bilirubin 2.0 (<2.0 mg/dL) 12/06/17 20:56 Urine Urobilinogen 4.0 e.u/dl mg/dL (0.2-1.0) 12/06/17 20:56 Ur Leukocyte Esterase Negative (NEGATIVE) 12/06/17 20:56 Urine WBC (Auto) 4 /hpf (3-5) 12/06/17 20:56 Urine RBC (Auto) 3 /hpf (0-3) 12/06/17 20:56 Urine Bacteria Rare /hpf (NONE SEEN) 12/06/17 20:56 Hyaline Casts 3 /lpf 12/06/17 20:56 Urine Mucus Few 12/06/17 20:56 Stool Occult Blood Positive (NEGATIVE) 12/09/17 06:15 Stool O & P Wet [place] (.) 12/07/17 08:00 O & P Permanent Slide Final report (.) 12/07/17 08:00 Blood Type O POSITIVE 12/09/17 12:15 Antibody Screen Negative 12/09/17 12:15 Crossmatch See Detail 12/09/17 12:15 Problem List - Problems (1) Iron deficiency anemia Code(s): D50.9 - IRON DEFICIENCY ANEMIA, UNSPECIFIED (2) Diarrhea Code(s): R19.7 - DIARRHEA, UNSPECIFIED (3) Hematochezia Code(s): K92.1 - MELENA Assessment/Plan Recal mass ?adeocarcinoma. Await pathology results. No acute events. Onc, Sx, Imaging in progress. Family aware.
--- NOTE | 2017-12-13 10:03 | PN ---
Progress Note, Physician History of Present Illness: Patient is an 82 yr old man with no significant medical history here today complaining of 2-3 weeks of weakness, shortness of breath, decreased exercise tolerance and diarrhea. He states that he's had chronic diarrhea since returning from [facility]. His daughter states that he does not frequently go to the doctor. He reports having associated edema in his legs bilaterally. He denies chest pain, palpitations. He does not remember feeling acutely worse in the past 48 hours. Denies blood in diarrhea. Endorses fevers, chills, cough. Patient was noted to be in new-onset AFand to have HR in 140s. - Current Medication List Current Medications: Active Medications Acetaminophen (Tylenol -) 650 mg PO Q6H PRN PRN Reason: FEVER Metoprolol Tartrate (Lopressor Injection -) 5 mg IVPUSH Q4H PRN PRN Reason: TACHYCARDIA Last Admin: 12/07/17 17:45 Dose: 5 mg Metoprolol Tartrate (Lopressor -) 100 mg PO TID [facility] Last Admin: 12/13/17 06:40 Dose: 100 mg Zinc Sulfate (Orazinc -) 220 mg PO DAILY [facility] Last Admin: 12/12/17 15:36 Dose: Not Given - Objective Vital Signs: Vital Signs Temperature 97.3 F L 12/13/17 05:55 Pulse Rate 118 H 12/13/17 05:55 Respiratory Rate 20 12/13/17 05:55 Blood Pressure 98/60 12/13/17 05:55 O2 Sat by Pulse Oximetry (%) 95 12/12/17 21:45 Eyes: Yes: WNL, Conjunctiva Clear, EOM Intact HENT: Yes: WNL, Atraumatic, Normocephalic Neck: Yes: WNL, Supple, Trachea Midline Cardiovascular: Yes: Pulse Irregular, S1, S2 Respiratory: Yes: WNL, Regular, CTA Bilaterally Gastrointestinal: Yes: WNL, Normal Bowel Sounds Genitourinary: Yes: WNL Musculoskeletal: Yes: WNL Extremities: Yes: WNL Edema: No Integumentary: Yes: WNL Neurological: Yes: WNL, Alert, Oriented ...Motor Strength: WNL Psychiatric: Yes: WNL Labs: CBC, BMP 12/13/17 06:32 12/13/17 06:32 INR, PTT INR 1.50 (0.82-1.09) H 12/12/17 06:50 Assessment/Plan - Problems (1) Anemia Assessment/Plan: Anemia; weight loss. Rectal mass found today: carcinoma. Workup in progress. As noted by GI and hematology, no anticoagulation. Code(s): D64.9 - ANEMIA, UNSPECIFIED (2) Atrial fibrillation with RVR Assessment/Plan: HR now controlled with metoprolol. Off NOAC; unable to restart due to GI bleed, finding of rectal carcinoma. Code(s): I48.91 - UNSPECIFIED ATRIAL FIBRILLATION (3) Iron deficiency anemia Code(s): D50.9 - IRON DEFICIENCY ANEMIA, UNSPECIFIED (4) Right bundle branch block (RBBB) Code(s): I45.10 - UNSPECIFIED RIGHT BUNDLE-BRANCH BLOCK (5) Swelling of lower extremity Code(s): M79.89 - OTHER SPECIFIED SOFT TISSUE DISORDERS (6) Systolic CHF Assessment/Plan: ECHO: mod-severely reduced LVEF. Pleural effusion. BNP >14,000. Continue metoprolol for AF, CHF. Add ACEI (lisinopril 2.5 mg daily) if renal function, BP allow. Discontinued diltiazem (significantly reduced LVEF). F/u BUN/Cr, electrolytes, daily weight, Is and Os. Code(s): I50.20 - UNSPECIFIED SYSTOLIC (CONGESTIVE) HEART FAILURE (7) Hypoalbuminemia Code(s): E88.09 - [facility] DISORDERS OF PLASMA-PROTEIN METABOLISM, NEC
[2017-12-13] MEDS: ZINC SULFATE 220 MG CAPSULE (FP) PO SCH (10:05)
[2017-12-13] MEDS: HEPARIN NA (PORCINE) 5,000 UNITS/ML 1ML VIAL SQ SCH ×2 (12:24→22:39)
--- NOTE | 2017-12-13 13:32 | PN ---
Teaching Attending Note Name of Resident: Saurav Tam ATTENDING PHYSICIAN STATEMENT I saw and evaluated the patient. I reviewed the resident's note and discussed the case with the resident. I agree with the resident's findings and plan as documented with exceptions below. SUBJECTIVE: Patient seen and examined, no nausea, vomiting or further diarrhea. Denies any chest pain, palpitations, dyspnea or dizziness. OBJECTIVE: Vital Signs Period Temp Pulse Resp BP Sys/Slaughter Pulse Ox Last 24 Hr 97.3 F-98.2 F 83-130 17-20 91-119/51-77 91-100 Intake & Output 12/10/17 12/11/17 12/12/17 12/13/17 23:59 23:59 23:59 23:59 Intake Total 1530 1064 2420 145 Output Total 100 Balance 1530 1064 2320 145 general: lying in bed in no acute distress Chest: decreased breath sounds at bases Abdomen: soft, NT throughout, ND Extremities: no edema Home Medication List Medication Instructions Recorded Confirmed Type NK [No Known Home Medication] 12/06/17 12/06/17 History Active Medications Generic Name Dose Route Start Last Admin Trade Name Freq PRN Reason Stop Dose Admin Acetaminophen 650 mg 12/07/17 02:00 Tylenol - PO Q6H PRN FEVER Amino Acids 30 ml 12/13/17 17:30 Prosource No Carb Liquid Pkt PO BID@0800,1730 [facility]EWART Heparin Sodium (Porcine) 5,000 unit 12/13/17 11:00 12/13/17 12:24 Heparin - SQ 5,000 unit BID [facility] Administration Metoprolol Tartrate 5 mg 12/07/17 11:30 12/07/17 17:45 Lopressor Injection - IVPUSH 5 mg Q4H PRN Administration TACHYCARDIA Metoprolol Tartrate 100 mg 12/11/17 14:00 12/13/17 06:40 Lopressor - PO 100 mg TID STEWART Administration Zinc Sulfate 220 mg 12/07/17 11:45 12/13/17 10:05 Orazinc - PO 220 mg DAILY ST[facility]ART Administration ASSESSMENT AND PLAN: 82yo M with no PMHx but has not seen PMD in several years presented with diarrhea and LE swelling for 3 weeks and found to be in afib with RVR in the ER -Rectal mass, ?Adenocarcinoma, 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 -New onset Afib with RVR -Newly diagnosis Cardiomyopathy with EF 35-40% and global hypokinesis of LV -Acute on ?Chronic systolic HF exacerbation -Dysphagia with dysgucia -LE edema, likely CHF -Iron deficiency anemia Plan: GI input noted. Colonoscopy with new rectal mass. Follow up biopsy, no further episodes of hematochezia. Monitor H/H. S/p 1 unit PRBC 12/11. General surgery/oncology input. CT Chest/A/P noted. RUL nodular opacity and ? liver lesions, follow up with oncology. Follow up CEA. Off diltiazem given poor EF. Metoprolol 100 mg TID. HR improved. Digoxin if fails to improve with the same. Dc protonix drip. Clears, advance diet per GI and surgical plans. Eliquis on hold given above, high risk of bleeding into rectal mass and hemodynamic instability from the same. 2D echo reviewed. Discuss with cardiology about pre-operative medical optimization and if a surgical candidate. last colonoscopy 2 years ago. Stool studies neg so far. Speech/swallow input noted, no oral thrush, Plan as above. . s/p Venofer. Start oral iron suppl. DVTPPX with SCDs dispo pending surgery/oncology/cardiology. PT eval.
[2017-12-13 16:25] LABS: HEMOGLOBIN 11.8 GM/dL (11.7-16.9); LYMPH % 5.4 % (8-40); MCH 27.2 pg (25.7-33.7); MCHC 32.8 g/dl (32.0-35.9); MEAN CELL VOLUME 82.8 fl (80-96); MEAN PLT VOLUME 8.4 fl (7.5-11.1); MONO % 6.8 % (3.8-10.2); NEUT % 87.8 % (42.8-82.8); PLATELET COUNT 209 K/MM3 (134-434); RBC 4.35 M/mm3 (4.00-5.60); RDW 18.6 % (11.9-15.9); WHITE BLOOD COUNT 9.5 K/mm3 (4.0-10.0)
--- NOTE | 2017-12-13 16:43 | PN ---
Progress Note (short form) - Note Progress Note: Pt seen and examined. feels tired chart reviewed/CT c/a/p reviewed Constitutional: NAD Eyes: Yes: Conjunctiva Clear HENT: Yes: Atraumatic, Normocephalic Neck: Yes: Supple Cardiovascular: Yes: Regular Rate and Rhythm Respiratory: Yes: Regular Gastrointestinal: Yes: Normal Bowel Sounds, Soft Musculoskeletal: Yes: WNL Extremities: Yes: WNL Edema: No Neurological: Yes: Alert, Oriented Temp Pulse Resp BP Pulse Ox 98.2 F 108 H 18 93/57 95 12/13/17 09:00 12/13/17 13:00 12/13/17 13:00 12/13/17 13:00 12/13/17 09:00 CBC, BMP 12/13/17 15:50 Current Medications Generic Name Dose Route Start Last Admin Trade Name Freq PRN Reason Stop Dose Admin Acetaminophen 650 mg 12/07/17 02:00 Tylenol - PO Q6H PRN FEVER Amino Acids 30 ml 12/13/17 17:30 Prosource No Carb Liquid Pkt PO BID@0800,1730 [facility] Heparin Sodium (Porcine) 5,000 unit 12/13/17 11:00 12/13/17 12:24 Heparin - SQ 5,000 unit BID [facility]ART Administration Metoprolol Tartrate 5 mg 12/07/17 11:30 12/07/17 17:45 Lopressor Injection - IVPUSH 5 mg Q4H PRN Administration TACHYCARDIA Metoprolol Tartrate 100 mg 12/11/17 14:00 12/13/17 14:44 Lopressor - PO 100 mg TID STEWART Administration Zinc Sulfate 220 mg 12/07/17 11:45 12/13/17 10:05 Orazinc - PO 220 mg DAILY [facility]ART Administration Local vs Metastatic rectal ca ( AWAITING path though ) in an elderly pt with cardiac co-morbidities. MRI liver to know for definitive if liver mets ( radiologically ) CEA pending. sharon lozada once path available further course will be planned pending above. discussed with patient, asked me speak to Ally. Called Ally , she is unable to come today, she will come in tomorrow, at which time will have a conservation.
[2017-12-13 16:48] LABS: ALBUMIN 1.6 g/dl (3.4-5.0); ANION GAP 10 (8-16); BLOOD UREA NITROGEN 16 mg/dL (7-18); CALCIUM 7.6 mg/dL (8.5-10.1); CHLORIDE 109 mmol/L (98-107); CO2 23 mmol/L (21-32); CREATININE 0.9 mg/dL (0.7-1.3); GLUCOSE,RANDOM 100 mg/dL (74-106); PHOSPHOROUS 3.6 mg/dL (2.5-4.9); POTASSIUM 4.1 mmol/L (3.5-5.1); SGOT/AST 6 U/L (15-37); SGPT/ALT 9 U/L (12-78); SODIUM 142 mmol/L (136-145)
[2017-12-13 16:50] LABS: ALK PHOS 77 U/L (45-117); BILIRUBIN,TOTAL 0.7 mg/dL (0.2-1.0); TOT PROT 5.2 g/dl (6.4-8.2)
[2017-12-13] MEDS: AMINO ACIDS/PROTEIN HYDROLYS 30 ML LIQUID.PKT PO SCH (18:39)
--- NOTE | 2017-12-13 20:58 | PN ---
Progress Note (short form) - Note Progress Note: Radiation Oncology Pt seen earlier, chart reviewed, full consult dictated. 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 Await bx result and completion of staging w/u. If localized or locally regionally advanced, medical optimization and surgery eval. Further recs to follow pending above.
--- NOTE | 2017-12-13 21:26 | CONS ---
DATE OF CONSULTATION: 12/13/2017 REFERRING PHYSICIAN: Josefina Bernabe MD REASON FOR CONSULTATION: Probable rectal cancer. HISTORY OF PRESENT ILLNESS: The patient is an 82-year-old gentleman who recently returned from [facility] with a 3-week history of diarrhea, shortness of breath, fevers, chills, as well as 30-pound weight loss. On admission, he was found to have bright red blood per rectum with iron deficiency anemia, as well as new-onset atrial fibrillation with rapid ventricular rate and a right bundle branch block. He had a normal colonoscopy 5 years ago. Colonoscopy on this admission showed a 6-cm rectal mass. He is being managed for his cardiac issues. He has no chest pain, headaches, abdominal pain, nausea, vomiting, or incontinence. The biopsy pathology is pending. PAST MEDICAL HISTORY: No history of radiation therapy, inflammatory bowel disease, or collagen vascular disease. He has congestive heart failure secondary to atrial fibrillation. He has a neck resection for a cyst 40 years ago. PAST SURGICAL HISTORY: As noted above. ALLERGIES: No known drug allergies. CURRENT MEDICATIONS: Heparin subcutaneous, Lopressor, zinc sulfate. SOCIAL HISTORY: He lives with his in [place]. He is retired. 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 His son works in the police department in [place] and another son lives in [place]. He smoked cigarettes until 25 years ago. He is a social alcohol drinker. FAMILY HISTORY: His mother had cervical cancer, and his brother had a throat malignancy. REVIEW OF SYSTEMS: As noted. PHYSICAL EXAMINATION: General: He is in no acute distress. Vital Signs: Weight 146 pounds. Temperature 98, blood pressure 90/53, pulse 77 , respiratory rate 18, SaO2 of 95% room air. HEENT: Normocephalic, atraumatic. Moist mucous membranes. Anicteric sclerae. Clear oral cavity. Neck: No thyromegaly or masses. Chest: Clear. No axillary adenopathy. Cardiovascular: Irregular. Abdomen: Soft, nontender, nondistended, with active bowel sounds. No inguinal adenopathy or intraabdominal mass. Extremities: No peripheral edema. Musculoskeletal: No spine or CVA tenderness. Neurologic: Nonfocal. Rectal: Not performed as he had a colonoscopy. RADIOLOGIC DATA: CT chest, abdomen, and pelvis pending. PATHOLOGIC DATA: Rectal mass biopsy pending. LABORATORY DATA: WBC 9.5, platelets 209, hemoglobin 11.8. Electrolytes within normal limits. BUN 16, creatinine 0.9. Calcium 7.6. Liver function tests within normal limits. Albumin 1.6. CEA pending. IMPRESSION: An 82-year-old gentleman with anemia secondary to most likely a rectal malignancy. Pathology is pending. He will need to complete staging workup including endoscopic ultrasound or MRI as well as surgical evaluation if the disease is localized or local-regionally advanced (non metastatic). He will need medical stabilization and cardiac management before any therapy. We will follow the workup and will follow the pathology to confirm malignancy. Patient discussed earlier today with Dr. Bernabe. FESTUS KIMBALL M.D. GEOFF/[id number] MTDD
--- NOTE | 2017-12-14 06:35 | PN ---
Physical Exam: SUBJECTIVE: Patient seen and examined - Pt hypotensive to 80s sytolic overnight; otherwise VSS, afebrile. No other major events; - Denies any further episodes of diarrhea or hematochezia; Denies f/c/n/v/d, sob , CP, back pain, ab pain; No complaints; Will have in-depth family meeting in PM with pt to discuss plan for likely rectal CA OBJECTIVE: Vital Signs Intake & Output 12/11/17 12/12/17 12/13/17 12/14/17 23:59 23:59 23:59 23:59 Intake Total 1064 2420 455 160 Output Total 100 Balance 1064 2320 455 160 Period Temp Pulse Resp BP Sys/Slaughter Pulse Ox Last 24 Hr 97.2 F-98.3 F 63-108 18-20 85-101/46-67 94-95 GENERAL: Elderly man, NAD, A&Ox3 HEAD: NCAT, alopecia EYES: PERRL, extraocular movements intact, sclera anicteric, conjunctiva clear. No ptosis. ENT: Ears normal, nares patent, oropharynx clear without exudates, moist mucous membranes. NECK: Trachea midline, full range of motion, supple. LUNGS: Trace bibasilar crackles, no wheezes or rhonchi HEART: IRR IRR, no m/c/g/r ABDOMEN: Scaphoid. Soft, nontender, nondistended, normoactive bowel sounds, no guarding, no rebound, no hepatosplenomegaly, no masses. No CVA tenderness EXTREMITIES: 2+ pulses, warm, well-perfused, 1+ pedal edema NEUROLOGICAL: Cranial nerves II through XII grossly intact. Normal speech, gait not observed. PSYCH: Normal mood, normal affect. SKIN: Warm, dry, normal turgor, no rashes or lesions noted Laboratory Results - last 24 hr CBC, BMP 12/13/17 15:50 12/13/17 15:50 12/12/17 12/13/17 12/13/17 06:50 06:32 06:32 WBC 12.1 H RBC 4.36 Hgb 11.6 L Hct 36.0 MCV 82.6 MCH 26.6 MCHC 32.2 RDW 18.7 H Plt Count 198 MPV 8.1 Neutrophils % 89.6 H Lymphocytes % 3.8 L D Monocytes % 6.5 Eosinophils % 0.0 Basophils % 0.1 Sodium 143 Potassium 4.0 Chloride 109 H Carbon Dioxide 23 Anion Gap 11 BUN 13 Creatinine 0.8 D Creat Clearance w eGFR > 60 Random Glucose 74 Calcium 7.5 L Phosphorus 3.2 D Magnesium 2.2 Total Bilirubin 0.9 D AST 7 L D ALT 9 L Alkaline Phosphatase 77 Total Protein 5.1 L Albumin 1.6 L Tumor Marker AFP 2.9 12/13/17 12/13/17 15:50 15:50 WBC 9.5 RBC 4.35 Hgb 11.8 Hct 36.0 MCV 82.8 MCH 27.2 MCHC 32.8 RDW 18.6 H Plt Count 209 MPV 8.4 Neutrophils % 87.8 H Lymphocytes % 5.4 L D Monocytes % 6.8 Eosinophils % 0.0 Basophils % 0.0 Sodium 142 Potassium 4.1 Chloride 109 H Carbon Dioxide 23 Anion Gap 10 BUN 16 D Creatinine 0.9 Creat Clearance w eGFR > 60 Random Glucose 100 D Calcium 7.6 L Phosphorus 3.6 Magnesium 2.0 Total Bilirubin 0.7 D AST 6 L ALT 9 L Alkaline Phosphatase 77 Total Protein 5.2 L Albumin 1.6 L Tumor Marker AFP Active Medications Generic Name Dose Route Start Last Admin Trade Name Freq PRN Reason Stop Dose Admin Acetaminophen 650 mg 12/07/17 02:00 Tylenol - PO Q6H PRN FEVER Amino Acids 30 ml 12/13/17 17:30 12/13/17 18:39 Prosource No Carb Liquid Pkt PO 30 ml BID@0800,1730 STEWART Administration Heparin Sodium (Porcine) 5,000 unit 12/13/17 11:00 12/13/17 22:39 Heparin - SQ 5,000 unit BID STEWART Administration Metoprolol Tartrate 5 mg 12/07/17 11:30 12/07/17 17:45 Lopressor Injection - IVPUSH 5 mg Q4H PRN Administration TACHYCARDIA Metoprolol Tartrate 100 mg 12/11/17 14:00 12/13/17 22:39 Lopressor - PO 100 mg TID STEWART Administration Zinc Sulfate 220 mg 12/07/17 11:45 12/13/17 10:05 Orazinc - PO 220 mg DAILY STEWART Administration Microbiology 12/10/17 10:20 Urine - Urine Clean Catch Urine Culture - Final Contaminated: Please Repeat 12/06/17 22:30 Blood - Peripheral Venous Blood Culture - Final NO GROWTH AFTER 5 DAYS INCUBATION 12/06/17 22:30 Blood - Peripheral Venous Blood Culture - Final NO GROWTH AFTER 5 DAYS INCUBATION 12/10/17 10:20 Stool Clostridium difficile Antigen (LUIS) - Final 12/10/17 10:20 Stool Clostridium difficile Toxin Assay - Final 12/07/17 08:00 Stool Salmonella/Shigella Culture - Final NO GROWTH OF SALMONELLA OR SHIGELLA SPECIES OBTAINED 12/07/17 08:00 Stool Campylobacter Culture - Final NO GROWTH OF CAMPYLOBACTER SPECIES OBTAINED 12/07/17 08:00 Stool Yersinia Culture - Final NO GROWTH OF YERSINIA SPECIES OBTAINED 12/07/17 08:00 Stool Vibrio Culture - Final 12/07/17 08:00 Stool Escherichia coli 0157 Culture - Final NO GROWTH OF E COLI 0157 OBTAINED 12/06/17 20:56 Urine - Urine Clean Catch Urine Culture - Final Contaminated: Please Repeat 12/07/17 03:35 Nasopharyngeal Swab Influenza Types A,B Antigen (LUIS) - Final 12/07/17 03:35 Nasopharyngeal Swab - Final CXR 12/06 - Imaging reveals a large heart, sclerotic knob, clips by the thoracic inlet, right base granuloma and some atelectasis with pleural reaction at the left base. There may be some left hilar calcifications. A discrete infiltrate or pneumothorax is not seen. There are degenerative changes. The soft tissues are intact. Follow-up recommended. LE duplex 12/06 - IMPRESSION: No evidence of deep vein thrombosis as above. ECHO 12/09 - LV normal size, EF 35-40% w/ global hypokinesia; RV mildly dilated, function mild to moderately reduced; ZAIRA; mod MR, mild TR, mod , mild AR; no effusions Chest/ab/pelvis CT 12/12 - Chest - 1. Right upper lobe traction bronchiectasis with large semisolid nodular opacity as described above may be primary neoplasm , posttreatment changes from prior neoplasm and/or postinfectious/ postinflammatory. Please correlate clinically and compared to prior chest CT, if available. PET/CT and/or histopathologic correlation may be helpful. 2. Small to moderate-sized lateral layering pleural effusions (left larger than right), with multisegment compressive atelectasis in both lung bases. 3. No evidence of pulmonary metastasis or metastatic lymphadenopathy within the chest. 4. Cardiomegaly. Chest and abdominal wall edema with small volume of free fluid in the abdomen may be secondary to third spacing. Please correlate for CHF exacerbation. Abdomen/pelvis - 1. 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 2. Inhomogeneous enhancement in the right hepatic lobe and hyperenhancement throughout the left hepatic lobe may be attributed to arterial shunting. Lesions in the left hepatic lobe are incompletely characterized. Further evaluation with multiphase contrast-enhanced MRI of the liver is recommended to better evaluate for metastatic disease. 3. Enlarged prostate gland. Please correlate with PSA and physical exam. 4. A 1.6 cm urinary bladder calculus. Circumferentially prominent urinary bladder wall may be attributed to underdistention and/or chronic outlet obstruction. Cystitis is not excluded. ASSESSMENT/PLAN: The patient is a 82 year old male with no significant past medical history, not following PCP, that presents to the hospital today complaining of diarrhea that started 3 weeks ago when he was in [facility]. He was found to have new onset of AFib. Now with iron deficiency anemia and BRBPR x2 this admission. Colonoscopy notable for 6cm rectal mass, Onc and general surgery consulted. Plan for staging and possible resection by Dr. Hewitt after pt receives cardiac clearance. #Rectal mass - 6cm mass found on EGD today, further characterized on ab/pelvis CT; biopsied by GI; - Onc and surgical referral - f/u with GI - AFP, CEA pending - CT chest/ab/pelvis results as noted above - hold all AC - General surgery amenable to resection pending cardiac clearance - Unlikely chemotx candidate given cardiac comorbities, however awaiting further recs - abdominal MRI to further characterize liver lesions note on CT findings - Rad/onc consulted, recs appreciated -CEA elevated at 6.3 - PET scan #New onset of A.Fib- HR better controlled, 100-130s today; ChadsVasc 2; mildly hypotensive to 80s systolic in AM, BB held - c/w Lopressor 100mg TID -Cardiology consulted, recs appreciated - tele monitoring - Eliquis held in setting of GI bleed - Hold BB <90 systolic; - Started on low dose digoxin 0.125mg per cards recs - plan to d/c on Eliquis for custodial AC; hold for now - Will require cardiac clearance for possible resection of rectal mass #GI bleed - No further episodes overnight; s/p 1 unit prbcs; likely secondary to neoplasm - Serial CBCs - Transfuse at <7 - hold AC - EGD results as mentioned above - monitor for further episodes of hematochezia #CHF secondary to afib - BNP [id number] on presentation; clinically less overloaded today - PO hydration - Strict Is and Os - Cardiology following - monitor UOP, volume status #Enlarged Prostate - CT confirmed - considering sending PSA - outpt urology f/u - monitor for signs of retention #Diarrhea- likely viral; recent hx of sick contact and travel to [facility]; improving -f/u stool studies; negative to date - f/u gastrin, VIP - PO hydration - beside commode - c diff stool studies negative #dysgucia/dysphagia - decreased PO intake; 30 Lb loss over past month; no oropharyngeal lesions noted on exam - c/w zinc sulfate - encourage PO intake - Nutrition eval #normocytic anemia - likely secondary to rectal mass, chronic GI bleeds - iron 9, TIBC 116, low iron sat, normal ferritin - repeat iron studies in 3 months as outpt #PPX- SCDs HSQ FEN PO hydration Daily lytes Clears Dispo - Tele Plan discussed with attending, Dr. Kevin Tam, PGY1 Visit type - Emergency Visit Emergency Visit: Yes ED Registration Date: 12/07/17 Care time: The patient presented to the Emergency Department on the above date and was hospitalized for further evaluation of their emergent condition. - New Patient This patient is new to me today: No - Critical Care Critical Care patient: No
[2017-12-14] MEDS: METOPROLOL TARTRATE 50 MG TABLET (FP) PO SCH ×3 (06:44→22:05)
--- NOTE | 2017-12-14 08:47 | PN ---
Progress Note, Physician Chief Complaint: COVERAGE FOR DARLENE TELE: AF w/ IVCD, rates are uncontrolled at times up to 140s No distress, denies CP or SOB. - Current Medication List Current Medications: Active Medications Acetaminophen (Tylenol -) 650 mg PO Q6H PRN PRN Reason: FEVER Amino Acids (Prosource No Carb Liquid Pkt) 30 ml PO BID@0800,1730 [facility] Last Admin: 12/13/17 18:39 Dose: 30 ml Heparin Sodium (Porcine) (Heparin -) 5,000 unit SQ BID [facility] Last Admin: 12/13/17 22:39 Dose: 5,000 unit Metoprolol Tartrate (Lopressor Injection -) 5 mg IVPUSH Q4H PRN PRN Reason: TACHYCARDIA Last Admin: 12/07/17 17:45 Dose: 5 mg Metoprolol Tartrate (Lopressor -) 100 mg PO TID [facility] Last Admin: 12/14/17 06:44 Dose: 100 mg Zinc Sulfate (Orazinc -) 220 mg PO DAILY [facility] Last Admin: 12/13/17 10:05 Dose: 220 mg - Objective Vital Signs: Vital Signs Temperature 97.2 F L 12/14/17 06:00 Pulse Rate 63 12/14/17 06:00 Respiratory Rate 18 12/14/17 06:00 Blood Pressure 101/67 12/14/17 06:00 O2 Sat by Pulse Oximetry (%) 94 L 12/13/17 22:00 Constitutional: Yes: Calm Cardiovascular: Yes: Pulse Irregular Respiratory: Yes: CTA Bilaterally Gastrointestinal: Yes: Soft Edema: No Neurological: Yes: Alert Labs: CBC, BMP 12/13/17 15:50 12/13/17 15:50 INR, PTT INR 1.50 (0.82-1.09) H 12/12/17 06:50 - ....Imaging EKG: Image Reviewed Assessment/Plan Assessment/Plan - Problems (1) Anemia Assessment/Plan: Anemia; weight loss. Rectal mass found, carcinoma. Workup in progress. As noted by GI and hematology, no anticoagulation. Code(s): D64.9 - ANEMIA, UNSPECIFIED (2) Atrial fibrillation with RVR Assessment/Plan: HR at times uncontrolled, BP is running on low side (100mmHg) Can add digoxin 0.125mg PO daily for adjunct rate control as BP does not allow addition of Cardizem (LV function also precludes) and patient is on adequate dose of beta jennifer. Off NOAC; unable to restart due to GI bleed, finding of rectal carcinoma. Code(s): I48.91 - UNSPECIFIED ATRIAL FIBRILLATION (3) Iron deficiency anemia Code(s): D50.9 - IRON DEFICIENCY ANEMIA, UNSPECIFIED (4) Right bundle branch block (RBBB) Code(s): I45.10 - UNSPECIFIED RIGHT BUNDLE-BRANCH BLOCK (5) Swelling of lower extremity Code(s): M79.89 - OTHER SPECIFIED SOFT TISSUE DISORDERS (6) Systolic CHF Assessment/Plan: ECHO: mod-severely reduced LVEF. Pleural effusion. BNP >14,000. Continue metoprolol for AF, CHF. Add ACEI (lisinopril 2.5 mg daily) if renal function, BP allow. Discontinued diltiazem (significantly reduced LVEF). F/u BUN/Cr, electrolytes, daily weight, Is and Os.
--- NOTE | 2017-12-14 09:09 | PN ---
Teaching Attending Note Name of Resident: Saurav Tam ATTENDING PHYSICIAN STATEMENT I saw and evaluated the patient. I reviewed the resident's note and discussed the case with the resident. I agree with the resident's findings and plan as documented with exceptions below. SUBJECTIVE: Patient seen and examined. No chest pain, palpitations, dyspnea, or dizziness. No further diarrhea or blood in stools. Tolerating liquids. OBJECTIVE: Vital Signs Period Temp Pulse Resp BP Sys/Slaughter Pulse Ox Last 24 Hr 97.2 F-98.3 F 63-108 -18 85-101/46-67 94-94 Intake & Output 12/11/17 12/12/17 12/13/17 12/14/17 23:59 23:59 23:59 23:59 Intake Total 1064 2420 455 160 Output Total 100 Balance 1064 2320 455 160 General: lying in bed in no acute distress Chest: decreased breath sounds at bases Abdomen:soft, NT throughout, ND, positive bowel sounds extremities1+ non pitting pedal edema Home Medication List Medication Instructions Recorded Confirmed Type NK [No Known Home Medication] 12/06/17 12/06/17 History Active Medications Generic Name Dose Route Start Last Admin Trade Name Freq PRN Reason Stop Dose Admin Acetaminophen 650 mg 12/07/17 02:00 Tylenol - PO Q6H PRN FEVER Amino Acids 30 ml 12/13/17 17:30 12/13/17 18:39 Prosource No Carb Liquid Pkt PO 30 ml BID@0800,1730 [facility] Administration Digoxin 0.125 mg 12/14/17 10:00 Lanoxin - PO DAILY [facility] Heparin Sodium (Porcine) 5,000 unit 12/13/17 11:00 12/13/17 22:39 Heparin - SQ 5,000 unit BID [facility] Administration Metoprolol Tartrate 5 mg 12/07/17 11:30 12/07/17 17:45 Lopressor Injection - IVPUSH 5 mg Q4H PRN Administration TACHYCARDIA Metoprolol Tartrate 100 mg 12/11/17 14:00 12/14/17 06:44 Lopressor - PO 100 mg TID [facility] Administration Zinc Sulfate 220 mg 12/07/17 11:45 12/13/17 10:05 Orazinc - PO 220 mg DAILY [facility] Administration Laboratory Results - last 24 hr 12/12/17 12/13/17 12/13/17 06:50 06:32 15:50 WBC 9.5 RBC 4.35 Hgb 11.8 Hct 36.0 MCV 82.8 MCH 27.2 MCHC 32.8 RDW 18.6 H Plt Count 209 MPV 8.4 Neutrophils % 87.8 H Lymphocytes % 5.4 L D Monocytes % 6.8 Eosinophils % 0.0 Basophils % 0.0 Sodium Potassium Chloride Carbon Dioxide Anion Gap BUN Creatinine Creat Clearance w eGFR Random Glucose Calcium Phosphorus Magnesium Total Bilirubin AST ALT Alkaline Phosphatase Total Protein Albumin Tumor Marker AFP 2.9 Carcinoembryonic Ag 6.3 H 12/13/17 15:50 WBC RBC Hgb Hct MCV MCH MCHC RDW Plt Count MPV Neutrophils % Lymphocytes % Monocytes % Eosinophils % Basophils % Sodium 142 Potassium 4.1 Chloride 109 H Carbon Dioxide 23 Anion Gap 10 BUN 16 D Creatinine 0.9 Creat Clearance w eGFR > 60 Random Glucose 100 D Calcium 7.6 L Phosphorus 3.6 Magnesium 2.0 Total Bilirubin 0.7 D AST 6 L ALT 9 L Alkaline Phosphatase 77 Total Protein 5.2 L Albumin 1.6 L Tumor Marker AFP Carcinoembryonic Ag ASSESSMENT AND PLAN: 82yo M with no PMHx but has not seen PMD in several years presented with diarrhea and LE swelling for 3 weeks and found to be in afib with RVR in the ER -Rectal mass, ?Adenocarcinoma, 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 -New onset Afib with RVR -Newly diagnosis Cardiomyopathy with EF 35-40% and global hypokinesis of LV -Acute on ?Chronic systolic HF exacerbation -Dysphagia with dysgucia -LE edema, likely CHF -Iron deficiency anemia Plan: GI input noted. Colonoscopy with new rectal mass. Follow up path results, no further episodes of hematochezia. Monitor H/H. S/p 1 unit PRBC 12/11. General surgery/oncology input. CT Chest/A/P noted. RUL nodular opacity and ? liver lesions,MRI abdomen to assess liver lesions. Follow up CEA. PET scan, discuss with oncology. Off diltiazem given poor EF. Metoprolol 100 mg TID. HR 100s-120s with intermittent 140s, Soft, BP. cardiology input noted, start digoxin 0.125 mg daily. Clears, advance diet per GI and surgical plans. Eliquis on hold given above, high risk of bleeding into rectal mass and hemodynamic instability from the same. 2D echo reviewed. Discuss with cardiology about pre-operative medical optimization and if a surgical candidate. Monitor volume status and lasix prn. last colonoscopy 2 years ago. Stool studies neg so far. Speech/swallow input noted, no oral thrush, Plan as above. . s/p Venofer. Start oral iron suppl. DVTPPX , heparin with close monitoring dispo pending surgery/oncology/cardiology and tumor staging and further plans. PT eval and encourage OOB while inhouse.
[2017-12-14] MEDS ORDERED: DEXTROSE 5%-0.45% SALINE 1,000 ML IV SCH (10:15)
[2017-12-14] MEDS: ZINC SULFATE 220 MG CAPSULE (FP) PO SCH (10:31)
[2017-12-14] MEDS: HEPARIN NA (PORCINE) 5,000 UNITS/ML 1ML VIAL SQ SCH ×2 (10:31→22:05)
[2017-12-14] MEDS: DIGOXIN 0.125 MG TABLET (FP) PO SCH (10:31)
[2017-12-14] MEDS: FERROUS SO4 325 MG TABLET (FP) PO SCH ×2 (10:31→22:05)
[2017-12-14] MEDS: AMINO ACIDS/PROTEIN HYDROLYS 30 ML LIQUID.PKT PO SCH ×2 (10:32→17:35)
[2017-12-14 14:10] LABS: BASO % 0.1 % (0-2.0); HEMATOCRIT 34.5 % (35.4-49); HEMOGLOBIN 11.1 GM/dL (11.7-16.9); LYMPH % 7.7 % (8-40); MCH 26.7 pg (25.7-33.7); MCHC 32.2 g/dl (32.0-35.9); MEAN CELL VOLUME 82.9 fl (80-96); MONO % 8.3 % (3.8-10.2); NEUT % 83.9 % (42.8-82.8); PLATELET COUNT 204 K/MM3 (134-434); RBC 4.17 M/mm3 (4.00-5.60); RDW 19.2 % (11.9-15.9); WHITE BLOOD COUNT 8.9 K/mm3 (4.0-10.0)
[2017-12-14 14:37] LABS: ALBUMIN 1.6 g/dl (3.4-5.0); ANION GAP 5 (8-16); BILIRUBIN,TOTAL 0.5 mg/dL (0.2-1.0); BLOOD UREA NITROGEN 25 mg/dL (7-18); CALCIUM 7.3 mg/dL (8.5-10.1); CHLORIDE 110 mmol/L (98-107); CO2 26 mmol/L (21-32); CREATININE 1.3 mg/dL (0.7-1.3); GLUCOSE,RANDOM 135 mg/dL (74-106); POTASSIUM 3.6 mmol/L (3.5-5.1); SGPT/ALT 9 U/L (12-78); SODIUM 141 mmol/L (136-145); TOT PROT 5.2 g/dl (6.4-8.2)
[2017-12-14 14:38] LABS: ALK PHOS 76 U/L (45-117); SGOT/AST 4 U/L (15-37)
--- NOTE | 2017-12-14 16:05 | PN ---
Progress Note (short form) - Note Progress Note: Pt seen and examined. feels tired chart reviewed/CT c/a/p reviewed Constitutional: NAD Eyes: Yes: Conjunctiva Clear HENT: Yes: Atraumatic, Normocephalic Neck: Yes: Supple Cardiovascular: Yes: Regular Rate and Rhythm Respiratory: Yes: Regular Gastrointestinal: Yes: Normal Bowel Sounds, Soft Musculoskeletal: Yes: WNL Extremities: Yes: WNL Edema: No Neurological: Yes: Alert, Oriented Last Vital Signs Temp Pulse Resp BP Pulse Ox 97.8 F 105 H 18 111/63 93 L 12/15/17 06:00 12/15/17 10:32 12/15/17 06:00 12/15/17 06:00 12/14/17 22:00 CBC, BMP 12/15/17 09:15 12/15/17 09:15 Current Medications Generic Name Dose Route Start Last Admin Trade Name Freq PRN Reason Stop Dose Admin Acetaminophen 650 mg 12/07/17 02:00 Tylenol - PO Q6H PRN FEVER Amino Acids 30 ml 12/13/17 17:30 12/15/17 10:32 Prosource No Carb Liquid Pkt PO Not Given BID@0800,1730 [facility] Digoxin 0.125 mg 12/14/17 10:00 12/15/17 10:32 Lanoxin - PO 0.125 mg DAILY [facility] Administration Ferrous Sulfate 325 mg 12/14/17 10:00 12/15/17 10:32 Feosol - PO 325 mg BID [facility] Administration Heparin Sodium (Porcine) 5,000 unit 12/13/17 11:00 12/15/17 10:34 Heparin - SQ 5,000 unit BID [facility] Administration Loperamide HCl 2 mg 12/14/17 17:10 Imodium - PO Q8H PRN DIARRHEA Metoprolol Tartrate 5 mg 12/07/17 11:30 12/07/17 17:45 Lopressor Injection - IVPUSH 5 mg Q4H PRN Administration TACHYCARDIA Metoprolol Tartrate 100 mg 12/11/17 14:00 12/15/17 06:19 Lopressor - PO 100 mg TID [facility] Administration Zinc Sulfate 220 mg 12/07/17 11:45 12/15/17 10:32 Orazinc - PO 220 mg DAILY [facility] Administration Local /locally advanced vs Metastatic rectal ca ( AWAITING path though ) in an elderly pt with cardiac co-morbidities. MRI liver to know for definitive if liver mets ( radiologically ) CEA noted. sharon lozada noted I did speak to Ally ( post permission from the pt), who is the grand daughter and updated the present satiation. She says, pt lives with his , and she visits them often. He has no HCP. Has many kids, but Ally says that she is the one that he always wanted to be the "care-taker". Encouraged to fill the HCP, RN aware to give the HCP form. She mentioned that she would need to talk to his grandfather. Pt poor PO intake, encouraged PO intake. difficult social situation. rec continued PT consult rec Nutrition consult
[2017-12-14] MEDS ORDERED: SODIUM CHLORIDE 500 ML IV STA (16:46)
[2017-12-14] MEDS ORDERED: LOPERAMIDE HCL 2 MG CAPSULE PO PRN (17:10)
[2017-12-15] MEDS: METOPROLOL TARTRATE 50 MG TABLET (FP) PO SCH ×3 (06:19→22:26)
--- NOTE | 2017-12-15 08:44 | PN ---
Progress Note, Physician Chief Complaint: COVERAGE FOR SHASHA Started on digoxin for adjunct rate control Overall, heart rate starting to improve - Current Medication List Current Medications: Active Medications Acetaminophen (Tylenol -) 650 mg PO Q6H PRN PRN Reason: FEVER Amino Acids (Prosource No Carb Liquid Pkt) 30 ml PO BID@0800,1730 [facility] Last Admin: 12/14/17 17:35 Dose: 30 ml Digoxin (Lanoxin -) 0.125 mg PO DAILY [facility] Last Admin: 12/14/17 10:31 Dose: 0.125 mg Ferrous Sulfate (Feosol -) 325 mg PO BID [facility] Last Admin: 12/14/17 22:05 Dose: 325 mg Heparin Sodium (Porcine) (Heparin -) 5,000 unit SQ BID [facility] Last Admin: 12/14/17 22:05 Dose: 5,000 unit Loperamide HCl (Imodium -) 2 mg PO Q8H PRN PRN Reason: DIARRHEA Metoprolol Tartrate (Lopressor Injection -) 5 mg IVPUSH Q4H PRN PRN Reason: TACHYCARDIA Last Admin: 12/07/17 17:45 Dose: 5 mg Metoprolol Tartrate (Lopressor -) 100 mg PO TID [facility] Last Admin: 12/15/17 06:19 Dose: 100 mg Zinc Sulfate (Orazinc -) 220 mg PO DAILY [facility] Last Admin: 12/14/17 10:31 Dose: 220 mg - Objective Vital Signs: Vital Signs Temperature 97.8 F 12/15/17 06:00 Pulse Rate 76 12/15/17 06:00 Respiratory Rate 18 12/15/17 06:00 Blood Pressure 111/63 12/15/17 06:00 O2 Sat by Pulse Oximetry (%) 93 L 12/14/17 22:00 Constitutional: Yes: No Distress, Calm Eyes: Yes: Conjunctiva Clear, EOM Intact Cardiovascular: Yes: Pulse Irregular Respiratory: Yes: CTA Bilaterally Gastrointestinal: Yes: Soft Edema: No Neurological: Yes: Alert ...Motor Strength: WNL Labs: CBC, BMP 12/14/17 13:40 12/14/17 13:40 INR, PTT INR 1.50 (0.82-1.09) H 12/12/17 06:50 Laboratory Tests 12/09/17 12/12/17 12/13/17 06:15 06:50 15:50 WBC 9.5 Hgb 11.8 Plt Count 209 INR 1.50 H Sodium Potassium Creatinine Stool Occult Blood Positive 12/13/17 12/14/17 12/14/17 15:50 13:40 13:40 WBC 8.9 Hgb 11.1 L Plt Count 204 INR Sodium 142 141 Potassium 4.1 3.6 Creatinine 0.9 1.3 D Stool Occult Blood - ....Imaging EKG: Image Reviewed Assessment/Plan Assessment/Plan - Problems (1) Anemia Assessment/Plan: Anemia; weight loss. Rectal mass found, carcinoma. Workup in progress. As noted by GI and hematology, no anticoagulation. Code(s): D64.9 - ANEMIA, UNSPECIFIED (2) Atrial fibrillation with RVR Assessment/Plan: HR at times uncontrolled, BP is running on low side (100mmHg) We have added digoxin 0.125mg PO daily for adjunct rate control as BP does not allow addition of Cardizem (LV function also precludes) and patient is on adequate dose of beta jennifer. Off NOAC; unable to restart due to GI bleed, finding of rectal carcinoma. Code(s): I48.91 - UNSPECIFIED ATRIAL FIBRILLATION (3) Right bundle branch block (RBBB) Code(s): I45.10 - UNSPECIFIED RIGHT BUNDLE-BRANCH BLOCK (4) Systolic CHF Assessment/Plan: Moderate LV dysfx Continue metoprolol for AF, CHF. Add ACEI (lisinopril 2.5 mg daily) if renal function, BP allow. Discontinued diltiazem (significantly reduced LVEF).
[2017-12-15 09:37] LABS: BASO % 0.1 % (0-2.0); HEMOGLOBIN 10.5 GM/dL (11.7-16.9); LYMPH % 6.4 % (8-40); MCH 27.1 pg (25.7-33.7); MCHC 32.8 g/dl (32.0-35.9); MEAN CELL VOLUME 82.5 fl (80-96); MEAN PLT VOLUME 7.8 fl (7.5-11.1); MONO % 7.8 % (3.8-10.2); NEUT % 85.7 % (42.8-82.8); PLATELET COUNT 175 K/MM3 (134-434); RBC 3.88 M/mm3 (4.00-5.60); RDW 18.8 % (11.9-15.9); WHITE BLOOD COUNT 7.7 K/mm3 (4.0-10.0)
[2017-12-15 09:57] LABS: ANION GAP 4 (8-16); BLOOD UREA NITROGEN 21 mg/dL (7-18); CALCIUM 7.2 mg/dL (8.5-10.1); CHLORIDE 112 mmol/L (98-107); CO2 27 mmol/L (21-32); GLUCOSE,RANDOM 114 mg/dL (74-106); PHOSPHOROUS 2.1 mg/dL (2.5-4.9); SODIUM 143 mmol/L (136-145)
[2017-12-15] MEDS: DIGOXIN 0.125 MG TABLET (FP) PO SCH (10:32)
[2017-12-15] MEDS: FERROUS SO4 325 MG TABLET (FP) PO SCH ×2 (10:32→22:26)
[2017-12-15] MEDS: ZINC SULFATE 220 MG CAPSULE (FP) PO SCH (10:32)
[2017-12-15] MEDS: AMINO ACIDS/PROTEIN HYDROLYS 30 ML LIQUID.PKT PO SCH ×2 (10:32→17:11)
[2017-12-15] MEDS: HEPARIN NA (PORCINE) 5,000 UNITS/ML 1ML VIAL SQ SCH ×2 (10:34→22:26)
[2017-12-15 10:38] LABS: INR 1.36 (0.82-1.09); PROTHROMBIN TIME (PATIENT) 15.4 SEC (9.98-11.88)
--- NOTE | 2017-12-15 10:41 | PN ---
Teaching Attending Note Name of Resident: Gudelia Brown SUBJECTIVE: Patient seen and examined. Denies nausea, vomiting, or diarrhea. As discussed with nursing, diarrhea with some blood x 2 yesterday. Patient denies any chest pain, palpitations, dizziness or dyspnea. Minimal PO intake, does like liquids. OBJECTIVE: Vital Signs Period Temp Pulse Resp BP Sys/Slaughter Pulse Ox Last 24 Hr 97.2 F-98 F 76-102 18-20 100-113/59-72 93-93 Intake & Output 12/12/17 12/13/17 12/14/17 12/15/17 23:59 23:59 23:59 23:59 Intake Total 2420 455 420 100 Output Total 100 Balance 2320 455 420 100 General: sitting in bed in no acute distress Chest: decreased breath sounds at bases Abdomen:soft, NT throughout, ND, positive bowel sounds extremities 1- 2+ non pitting edema Home Medication List Medication Instructions Recorded Confirmed Type NK [No Known Home Medication] 12/06/17 12/06/17 History Active Medications Generic Name Dose Route Start Last Admin Trade Name Rolanda PRN Reason Stop Dose Admin Acetaminophen 650 mg 12/07/17 02:00 Tylenol - PO Q6H PRN FEVER Amino Acids 30 ml 12/13/17 17:30 12/15/17 10:32 Prosource No Carb Liquid Pkt PO 30 ml BID@0800,1730 [facility] Administration Digoxin 0.125 mg 12/14/17 10:00 12/15/17 10:32 Lanoxin - PO 0.125 mg DAILY [facility] Administration Ferrous Sulfate 325 mg 12/14/17 10:00 12/15/17 10:32 Feosol - PO 325 mg BID [facility] Administration Heparin Sodium (Porcine) 5,000 unit 12/13/17 11:00 12/15/17 10:34 Heparin - SQ 5,000 unit BID [facility] Administration Loperamide HCl 2 mg 12/14/17 17:10 Imodium - PO Q8H PRN DIARRHEA Metoprolol Tartrate 5 mg 12/07/17 11:30 12/07/17 17:45 Lopressor Injection - IVPUSH 5 mg Q4H PRN Administration TACHYCARDIA Metoprolol Tartrate 100 mg 12/11/17 14:00 12/15/17 06:19 Lopressor - PO 100 mg TID [facility] Administration Zinc Sulfate 220 mg 12/07/17 11:45 04/15/18 10:32 Orazinc - PO 220 mg DAILY [facility] Administration Home Medication List Medication Instructions Recorded Confirmed Type NK [No Known Home Medication] 12/06/17 12/06/17 History Laboratory Results - last 24 hr 12/09/17 12/14/17 12/14/17 12:15 13:40 13:40 WBC 8.9 RBC 4.17 Hgb 11.1 L Hct 34.5 L MCV 82.9 MCH 26.7 MCHC 32.2 RDW 19.2 H Plt Count 204 MPV 8.0 Neutrophils % 83.9 H Lymphocytes % 7.7 L D Monocytes % 8.3 Eosinophils % 0.0 Basophils % 0.1 D Sodium 141 Potassium 3.6 Chloride 110 H Carbon Dioxide 26 Anion Gap 5 L BUN 25 H D Creatinine 1.3 D Creat Clearance w eGFR 52.72 Random Glucose 135 H D Calcium 7.3 L Phosphorus Total Bilirubin 0.5 D AST 4 L D ALT 9 L Alkaline Phosphatase 76 Total Protein 5.2 L Albumin 1.6 L Blood Type O POSITIVE Antibody Screen Negative Crossmatch See Detail 12/15/17 09:15 WBC RBC Hgb Hct MCV MCH MCHC RDW Plt Count MPV Neutrophils % Lymphocytes % Monocytes % Eosinophils % Basophils % Sodium 143 Potassium 4.0 Chloride 112 H Carbon Dioxide 27 Anion Gap 4 L BUN 21 H Creatinine 1.0 D Creat Clearance w eGFR Random Glucose 114 H Calcium 7.2 L Phosphorus 2.1 L D Total Bilirubin AST ALT Alkaline Phosphatase Total Protein Albumin Blood Type Antibody Screen Crossmatch MRI abdomen pending results ASSESSMENT AND PLAN: 82yo M with no PMHx but has not seen PMD in several years presented with diarrhea and LE swelling for 3 weeks and found to be in afib with RVR in the ER -Rectal mass, ?Adenocarcinoma, 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 -Acute lower GI bleed, from above -Acute blood loss anemia s/p 1 unit PRBC 12/11 -New onset Afib with RVR -Newly diagnosis Cardiomyopathy with EF 35-40% and global hypokinesis of LV -Acute on ?Chronic systolic HF exacerbation -Dysphagia with dysgucia -Poor oral intake -LE edema, likely CHF -Iron deficiency anemia Plan: Bloody diarrhea x 2 yesterday. Follow up H/h. Follow up MRI abdomen to assess liver lesions. Also lung nodule, ?mets. Follow up with oncology and surgery. Follow up CEA. HR improved, continue metoprolol 100 mg TID, digoxin 0.125 mg daily. Not a candidate for full dose anti-coagulation currently given rectal mass and ongoing GI bleed. Await cardiac clearance/optimization to address surgical plans. On clears, poor oral intake, reports doesn't like ensure, address with nutrition. IVFbolus prn, encourage oral intake. Hold off on standing hydration for now given high risk for volume overload. Speech/swallow input noted, no oral thrush. s/p Venofer. Continue oral iron suppl. DVTPPX , heparin with close monitoring, will need to hold if ongoing episodes of bloody diarrhea. dispo pending surgery/oncology/cardiology and tumor staging and further plans. PT eval and encourage OOB while inhouse. Family meeting to address current findings and further plan of care. Plan discussed with patient and nursing in detail, all questions answered.
[2017-12-15] MEDS ORDERED: SODIUM PHOSPHATE - 15 MM in DEXTROSE 5%-WATER - 250 ML IVPB ONE (15:14)
--- NOTE | 2017-12-15 15:30 | CON.PULM ---
Consult Consult Specialty:: PULM/CCM Referred by:: KILO Reason for Consultation:: MASS - History of Present Illness History of Present Illness: 82 m, with no significant past medical history. Apparently has not seen a medical professional for a long period of time. Admitted via the ER complaining of diarrhea that started 3 weeks ago when he was in [facility]. He also reported generalized weakness. No apparent sick contacts. In th ER he was found to have rapid atrial fibrillation. Hospital workup has revealed a rectal mass felt to be malignant. Biopsy has been performed but results are pending. CT chest: RUL area of ground glass nodularity and mass measuring 3.2 x 2.1 x 6 cm / 6 mm non-calcified RML nodule / 1.1 cm calcified granuloma / 3 mm RUL nodule - History Source History Provided By: Medical Record Limitations to Obtaining History: Poor Historian - Past Medical History Cardio/Vascular: Yes: AFIB - Past Surgical History Additional Surgical History: Cyst removal from his throat - Alcohol/Substance Use Hx Alcohol Use: No History of Substance Use: reports: None - Smoking History Smoking history: Former smoker - Social History History of Recent Travel: Yes Home Medications - Allergies Allergies/Adverse Reactions: Allergies Allergy/AdvReac Type Severity Reaction Status Date / Time No Known Allergies Allergy Verified 12/06/17 18:32 - Home Medications Home Medications: Ambulatory Orders NK [No Known Home Medication] 12/06/17 Review of Systems - Review of Systems Constitutional: reports: Lethargy, Malaise. denies: Chills, Fever, Night Sweats , Unintentional Wgt. Loss Eyes: reports: No Symptoms HENT: reports: No Symptoms Neck: reports: No Symptoms Cardiovascular: denies: Chest Pain, Edema, Palpitations, Shortness of Breath Respiratory: denies: Cough, Hemoptysis, Snoring, SOB, SOB on Exertion, Wheezing Gastrointestinal: reports: Abdominal Pain, Diarrhea Genitourinary: reports: No Symptoms Breasts: reports: No Symptoms Reported Musculoskeletal: reports: No Symptoms Integumentary: reports: No Symptoms Neurological: reports: No Symptoms Endocrine: reports: No Symptoms Hematology/Lymphatic: reports: No Symptoms Psychiatric: reports: No Symptoms Physical Exam Vital Sings: Vital Signs Temperature 98.1 F 12/15/17 14:10 Pulse Rate 118 H 12/15/17 14:10 Respiratory Rate 12/15/17 14:10 Blood Pressure 111/81 12/15/17 14:10 O2 Sat by Pulse Oximetry (%) 94 L 12/15/17 10:32 Constitutional: Yes: Calm, Thin Eyes: Yes: Conjunctiva Clear, EOM Intact HENT: Yes: Atraumatic, Pharyngeal Erythema Neck: Yes: Supple, Trachea Midline Cardiovascular: Yes: Pulse Irregular Respiratory: Yes: Diminished, Rhonchi. No: Accessory Muscle Use, Rales, SOB, SOB on Exertion, Stridor, Tachypnea, Wheezes ...Inspection: Yes: WNL ...Clubbing: No Gastrointestinal: Yes: Normal Bowel Sounds, Soft Renal/: Yes: WNL Breast(s): Yes: WNL Musculoskeletal: Yes: WNL Extremities: Yes: WNL Edema: No Peripheral Pulses WNL: Yes Integumentary: Yes: WNL Neurological: Yes: Alert, Oriented ...Motor Strength: WNL Psychiatric: Yes: Alert, Oriented Labs: CBC, BMP 12/15/17 09:15 12/15/17 09:15 Imaging - Results Chest X-ray: Report Reviewed, Image Reviewed Cat Scan: Report Reviewed, Image Reviewed Problem List - Problems (1) Lung mass Code(s): R91.8 - OTHER NONSPECIFIC ABNORMAL FINDING OF LUNG FIELD (2) Nodule of right lung Code(s): R91.1 - SOLITARY PULMONARY NODULE (3) Anemia Code(s): D64.9 - ANEMIA, UNSPECIFIED (4) Atrial fibrillation with RVR Code(s): I48.91 - UNSPECIFIED ATRIAL FIBRILLATION (5) Diarrhea Code(s): R19.7 - DIARRHEA, UNSPECIFIED (6) Hypoalbuminemia Code(s): E88.09 - OTH DISORDERS OF PLASMA-PROTEIN METABOLISM, NEC (7) Mass in rectum Code(s): K62.9 - DISEASE OF ANUS AND RECTUM, UNSPECIFIED (8) Right bundle branch block (RBBB) Code(s): I45.10 - UNSPECIFIED RIGHT BUNDLE-BRANCH BLOCK (9) Systolic CHF Code(s): I50.20 - UNSPECIFIED SYSTOLIC (CONGESTIVE) HEART FAILURE Assessment/Plan Will obtain CTS evaluation. Location of the RUL lesion difficult to access by IR needle or standard Bronch Follow pathology O2 as needed Can schedule thoracentesis for possible diagnostic information Will follow Dr Gupta
--- NOTE | 2017-12-16 05:53 | PN ---
Physical Exam: SUBJECTIVE: Patient seen and examined No major overnight events; febrile, VSS; one bloody bowel movement overnight, multiple bouts of diarrhea; still with very poor PO intake; denies any pain, f/c /n/v, cp, sob, ab pain, back pain; still with LE edema, improve; endorsing mild fatigue today - [facility] at bedside in early PM; informed of Ab MRI results and general plan for oncologic care; all questions answered OBJECTIVE: Vital Signs Intake & Output 12/13/17 12/14/17 12/15/17 12/16/17 23:59 23:59 23:59 23:59 Intake Total 455 420 100 Output Total 200 Balance 455 420 -100 Period Temp Pulse Resp BP Sys/Slaughter Pulse Ox Last 24 Hr 97.8 F-99.3 F 76-118 18-20 101-130/58-88 93-94 GENERAL: Elderly man, NAD, A&Ox3 HEAD: NCAT, alopecia EYES: PERRL, extraocular movements intact, sclera anicteric, conjunctiva clear. No ptosis. ENT: Ears normal, nares patent, oropharynx clear without exudates, moist mucous membranes. NECK: Trachea midline, full range of motion, supple. LUNGS: BL upper airway congestion noted and Trace ex wheezing at bases; no crackles or rhonchi appreciable HEART: IRR IRR, no m/c/g/r ABDOMEN: Scaphoid. Soft, nontender, nondistended, normoactive bowel sounds, no guarding, no rebound, no hepatosplenomegaly, no masses. No CVA tenderness EXTREMITIES: 2+ pulses, warm, well-perfused, 1+ edema to midshank NEUROLOGICAL: Cranial nerves II through XII grossly intact. Normal speech, gait not observed. PSYCH: Normal mood, normal affect. cooperative, interactive SKIN: Warm, dry, normal turgor, no rashes or lesions noted Laboratory Results - last 24 hr CBC, BMP 12/15/17 09:15 12/15/17 09:15 12/15/17 12/15/17 12/15/17 09:15 09:15 09:15 WBC 7.7 RBC 3.88 L Hgb 10.5 L Hct 32.0 L MCV 82.5 MCH 27.1 MCHC 32.8 RDW 18.8 H Plt Count 175 MPV 7.8 Neutrophils % 85.7 H Lymphocytes % 6.4 L Monocytes % 7.8 Eosinophils % 0.0 Basophils % 0.1 PT with INR 15.40 H INR 1.36 H Sodium 143 Potassium 4.0 Chloride 112 H Carbon Dioxide 27 Anion Gap 4 L BUN 21 H Creatinine 1.0 D Random Glucose 114 H Calcium 7.2 L Phosphorus 2.1 L D Magnesium 2.0 Active Medications Generic Name Dose Route Start Last Admin Trade Name Freq PRN Reason Stop Dose Admin Acetaminophen 650 mg 12/07/17 02:00 Tylenol - PO Q6H PRN FEVER Amino Acids 30 ml 12/13/17 17:30 12/15/17 17:11 Prosource No Carb Liquid Pkt PO Not Given BID@0800,1730 [facility] Digoxin 0.125 mg 12/14/17 10:00 12/15/17 10:32 Lanoxin - PO 0.125 mg DAILY [facility] Administration Ferrous Sulfate 325 mg 12/14/17 10:00 12/15/17 22:26 Feosol - PO 325 mg BID [facility] Administration Heparin Sodium (Porcine) 5,000 unit 12/13/17 11:00 12/15/17 22:26 Heparin - SQ 5,000 unit BID [facility] Administration Loperamide HCl 2 mg 12/14/17 17:10 Imodium - PO Q8H PRN DIARRHEA Metoprolol Tartrate 5 mg 12/07/17 11:30 12/07/17 17:45 Lopressor Injection - IVPUSH 5 mg Q4H PRN Administration TACHYCARDIA Metoprolol Tartrate 100 mg 12/11/17 14:00 12/15/17 22:26 Lopressor - PO 100 mg TID [facility] Administration Zinc Sulfate 220 mg 12/07/17 11:45 12/15/17 10:32 Orazinc - PO 220 mg DAILY [facility] Administration Microbiology 12/10/17 10:20 Urine - Urine Clean Catch Urine Culture - Final Contaminated: Please Repeat 12/06/17 22:30 Blood - Peripheral Venous Blood Culture - Final NO GROWTH AFTER 5 DAYS INCUBATION 12/06/17 22:30 Blood - Peripheral Venous Blood Culture - Final NO GROWTH AFTER 5 DAYS INCUBATION 12/10/17 10:20 Stool Clostridium difficile Antigen (LUIS) - Final 12/10/17 10:20 Stool Clostridium difficile Toxin Assay - Final 12/07/17 08:00 Stool Salmonella/Shigella Culture - Final NO GROWTH OF SALMONELLA OR SHIGELLA SPECIES OBTAINED 12/07/17 08:00 Stool Campylobacter Culture - Final NO GROWTH OF CAMPYLOBACTER SPECIES OBTAINED 12/07/17 08:00 Stool Yersinia Culture - Final NO GROWTH OF YERSINIA SPECIES OBTAINED 12/07/17 08:00 Stool Vibrio Culture - Final 12/07/17 08:00 Stool Escherichia coli 0157 Culture - Final NO GROWTH OF E COLI 0157 OBTAINED 12/06/17 20:56 Urine - Urine Clean Catch Urine Culture - Final Contaminated: Please Repeat 12/07/17 03:35 Nasopharyngeal Swab Influenza Types A,B Antigen (LUIS) - Final 12/07/17 03:35 Nasopharyngeal Swab - Final CXR 12/06 - Imaging reveals a large heart, sclerotic knob, clips by the thoracic inlet, right base granuloma and some atelectasis with pleural reaction at the left base. There may be some left hilar calcifications. A discrete infiltrate or pneumothorax is not seen. There are degenerative changes. The soft tissues are intact. Follow-up recommended. LE duplex 12/06 - IMPRESSION: No evidence of deep vein thrombosis as above. ECHO 12/09 - LV normal size, EF 35-40% w/ global hypokinesia; RV mildly dilated, function mild to moderately reduced; ZAIRA; mod MR, mild TR, mod , mild AR; no effusions Chest/ab/pelvis CT 12/12 - Chest - 1. Right upper lobe traction bronchiectasis with large semisolid nodular opacity as described above may be primary neoplasm , posttreatment changes from prior neoplasm and/or postinfectious/ postinflammatory. Please correlate clinically and compared to prior chest CT, if available. PET/CT and/or histopathologic correlation may be helpful. 2. Small to moderate-sized lateral layering pleural effusions (left larger than right), with multisegment compressive atelectasis in both lung bases. 3. No evidence of pulmonary metastasis or metastatic lymphadenopathy within the chest. 4. Cardiomegaly. Chest and abdominal wall edema with small volume of free fluid in the abdomen may be secondary to third spacing. Please correlate for CHF exacerbation. Abdomen/pelvis - 1. 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 2. Inhomogeneous enhancement in the right hepatic lobe and hyperenhancement throughout the left hepatic lobe may be attributed to arterial shunting. Lesions in the left hepatic lobe are incompletely characterized. Further evaluation with multiphase contrast-enhanced MRI of the liver is recommended to better evaluate for metastatic disease. 3. Enlarged prostate gland. Please correlate with PSA and physical exam. 4. A 1.6 cm urinary bladder calculus. Circumferentially prominent urinary bladder wall may be attributed to underdistention and/or chronic outlet obstruction. Cystitis is not excluded. ABdominal MRI 12/14 - IMPRESSION: Mildly heterogeneous enhancement of the liver but with no evidence of focal enhancing lesions or restricted diffusion. Scattered hepatic cysts. Left upper renal Pole cysts. Diffuse subcutaneous edema coupled with bilateral moderate pleural effusions in addition to mesenteric and retroperitoneal edema suggestive of third spacing. Cardiomegaly. ASSESSMENT/PLAN: The patient is a 82 year old male with no significant past medical history, not following PCP, that presents to the hospital today complaining of diarrhea that started 3 weeks ago [place] He was found to have new onset of AFib. Now with iron deficiency anemia and BRBPR x2 this admission. Colonoscopy notable for 6cm rectal mass, Onc and general surgery consulted. Plan for staging and possible resection by Dr. Hewitt after pt receives cardiac clearance. #Rectal mass - 6cm mass found on EGD, further characterized on ab/pelvis CT; biopsied by GI, results pending; CT chest/ab/pelvis results as noted above - Onc and surgical referral; ab MRI as noted above - f/u with GI on recommendations - CEA 6.3 - hold all AC except heparin BID - General surgery amenable to resection pending cardiac clearance - Unlikely chemotx candidate given cardiac comorbities, however awaiting further recs - Rad/onc consulted, recs appreciated -CEA elevated at 6.3 - consider PET scan - Will reach out to oncology team on timeline for care (inpt vs. outpt) #New onset of A.Fib- HR well controlled, 100-130s today; ChadsVasc 2; - c/w Lopressor 100mg TID - Cardiology consulted, recs appreciated - tele monitoring - Eliquis held in setting of GI bleed - Hold BB <90 systolic; - digoxin 0.125mg daily per cards recs for now given BP restrictions with cardizem - plan to d/c on Eliquis for alf AC; hold for now - Will require cardiac clearance for possible resection of rectal mass #GI bleed - One episode of mild hematochezia; likely secondary to neoplasm - Serial CBCs - Transfuse at <7 - hold AC - EGD results as mentioned above - monitor for further episodes of hematochezia #RUL/RML lesions - Noted on CT chest - Pulm consulted - consider biopsy or pleural fluid sampling - CT surgery consult #CHF secondary to afib - BNP [id number] on presentation - PO hydration - Strict Is and Os - Cardiology following - monitor UOP, volume status #Enlarged Prostate - CT confirmed - considering sending PSA - outpt urology f/u - monitor for signs of retention #Diarrhea- likely viral; recent hx of sick contact and travel to [facility]; c diff stool studies negative -f/u stool studies; negative to date - gastrin normal, VIP pending - PO hydration - beside commode - Imodium PRN #Hypophosphatemeia - 2.3 today - Repleted with PO kphos - trend #dysgucia/dysphagia - Poor PO intake; 30 Lb loss over past month secondary to neoplasm - c/w zinc sulfate - encourage PO intake - Nutrition eval; consider additional nutritional augmentation #normocytic anemia - likely secondary to rectal mass, chronic GI bleeds - iron 9, TIBC 116, low iron sat, normal ferritin - repeat iron studies in 3 months as outpt #PPX- SCDs HSQ FEN PO hydration Daily lytes Advanced to regular diet Dispo - Tele Plan discussed with attending, Dr. Kevin Tam, PGY1 Visit type - Emergency Visit Emergency Visit: Yes ED Registration Date: 12/07/17 Care time: The patient presented to the Emergency Department on the above date and was hospitalized for further evaluation of their emergent condition. - New Patient This patient is new to me today: No - Critical Care Critical Care patient: No - Discharge Referral Referred to [facility] No
[2017-12-16] MEDS: METOPROLOL TARTRATE 50 MG TABLET (FP) PO SCH ×3 (06:20→21:35)
[2017-12-16 06:48] LABS: BASO % 0.1 % (0-2.0); HEMATOCRIT 33.2 % (35.4-49); HEMOGLOBIN 10.9 GM/dL (11.7-16.9); LYMPH % 4.6 % (8-40); MCH 27.1 pg (25.7-33.7); MCHC 32.8 g/dl (32.0-35.9); MEAN CELL VOLUME 82.6 fl (80-96); MEAN PLT VOLUME 8.1 fl (7.5-11.1); MONO % 6.4 % (3.8-10.2); NEUT % 88.9 % (42.8-82.8); PLATELET COUNT 161 K/MM3 (134-434); RBC 4.03 M/mm3 (4.00-5.60); RDW 18.8 % (11.9-15.9); WHITE BLOOD COUNT 10.9 K/mm3 (4.0-10.0)
[2017-12-16 07:11] LABS: CHLORIDE 109 mmol/L (98-107); POTASSIUM 3.6 mmol/L (3.5-5.1); SODIUM 143 mmol/L (136-145)
[2017-12-16 07:18] LABS: ALBUMIN 1.8 g/dl (3.4-5.0); ALK PHOS 72 U/L (45-117); ANION GAP 8 (8-16); BILIRUBIN,TOTAL 0.7 mg/dL (0.2-1.0); BLOOD UREA NITROGEN 15 mg/dL (7-18); CALCIUM 7.2 mg/dL (8.5-10.1); CO2 26 mmol/L (21-32); CREATININE 0.8 mg/dL (0.7-1.3); GLUCOSE,RANDOM 88 mg/dL (74-106); PHOSPHOROUS 2.3 mg/dL (2.5-4.9); SGOT/AST 7 U/L (15-37); SGPT/ALT 9 U/L (12-78); TOT PROT 5.5 g/dl (6.4-8.2)
--- NOTE | 2017-12-16 08:21 | PN ---
Teaching Attending Note Name of Resident: Saurav Tam ATTENDING PHYSICIAN STATEMENT I saw and evaluated the patient. I reviewed the resident's note and discussed the case with the resident. I agree with the resident's findings and plan as documented with exceptions below. SUBJECTIVE: Patient seen and examined. no chest pain, palpitations, dyspnea, or dizziness. No abdominal pain. scant bloody diarrhea OBJECTIVE: Vital Signs Period Temp Pulse Resp BP Sys/Slaughter Pulse Ox Last 24 Hr 98.1 F-99.3 F 85-118 18-20 101-130/58-88 93-94 Intake & Output 12/13/17 12/14/17 12/15/17 12/16/17 23:59 23:59 23:59 23:59 Intake Total 455 420 100 Output Total 200 Balance 455 420 -100 Weight 149 lb 9.6 oz General: sitting in bed in no acute distress Chest: decreased breath sounds at bases Abdomen: soft, mild distension, positive bowel sounds Extremities: 2+ pedal pitting edema. Home Medication List Medication Instructions Recorded Confirmed Type NK [No Known Home Medication] 12/06/17 12/06/17 History Active Medications Generic Name Dose Route Start Last Admin Trade Name Freq PRN Reason Stop Dose Admin Acetaminophen 650 mg 12/07/17 02:00 Tylenol - PO Q6H PRN FEVER Amino Acids 30 ml 12/13/17 17:30 12/15/17 17:11 Prosource No Carb Liquid Pkt PO Not Given BID@0800,1730 [facility] Digoxin 0.125 mg 12/14/17 10:00 12/15/17 10:32 Lanoxin - PO 0.125 mg DAILY [facility] Administration Ferrous Sulfate 325 mg 12/14/17 10:00 12/15/17 22:26 Feosol - PO 325 mg BID [facility] Administration Heparin Sodium (Porcine) 5,000 unit 12/13/17 11:00 12/15/17 22:26 Heparin - SQ 5,000 unit BID [facility] Administration Loperamide HCl 2 mg 12/14/17 17:10 Imodium - PO Q8H PRN DIARRHEA Metoprolol Tartrate 5 mg 12/07/17 11:30 12/07/17 17:45 Lopressor Injection - IVPUSH 5 mg Q4H PRN Administration TACHYCARDIA Metoprolol Tartrate 100 mg 12/11/17 14:00 12/16/17 06:20 Lopressor - PO 100 mg TID [facility] Administration Zinc Sulfate 220 mg 12/07/17 11:45 12/15/17 10:32 Orazinc - PO 220 mg DAILY [facility] Administration Laboratory Results - last 24 hr 12/15/17 12/15/17 12/15/17 09:15 09:15 09:15 WBC 7.7 RBC 3.88 L Hgb 10.5 L Hct 32.0 L MCV 82.5 MCH 27.1 MCHC 32.8 RDW 18.8 H Plt Count 175 MPV 7.8 Neutrophils % 85.7 H Lymphocytes % 6.4 L Monocytes % 7.8 Eosinophils % 0.0 Basophils % 0.1 PT with INR 15.40 H INR 1.36 H Sodium 143 Potassium 4.0 Chloride 112 H Carbon Dioxide 27 Anion Gap 4 L BUN 21 H Creatinine 1.0 D Creat Clearance w eGFR Random Glucose 114 H Calcium 7.2 L Phosphorus 2.1 L D Magnesium 2.0 Total Bilirubin AST ALT Alkaline Phosphatase Total Protein Albumin 12/16/17 12/16/17 06:30 06:30 WBC 10.9 H D RBC 4.03 Hgb 10.9 L Hct 33.2 L MCV 82.6 MCH 27.1 MCHC 32.8 RDW 18.8 H Plt Count 161 MPV 8.1 Neutrophils % 88.9 H Lymphocytes % 4.6 L D Monocytes % 6.4 Eosinophils % 0.0 Basophils % 0.1 PT with INR INR Sodium 143 Potassium 3.6 Chloride 109 H Carbon Dioxide 26 Anion Gap 8 BUN 15 D Creatinine 0.8 Creat Clearance w eGFR > 60 Random Glucose 88 D Calcium 7.2 L Phosphorus 2.3 L Magnesium 2.0 Total Bilirubin 0.7 D AST 7 L D ALT 9 L Alkaline Phosphatase 72 Total Protein 5.5 L Albumin 1.8 L Laboratory Results - last 24 hr 12/15/17 12/15/17 12/15/17 09:15 09:15 09:15 WBC 7.7 RBC 3.88 L Hgb 10.5 L Hct 32.0 L MCV 82.5 MCH 27.1 MCHC 32.8 RDW 18.8 H Plt Count 175 MPV 7.8 Neutrophils % 85.7 H Lymphocytes % 6.4 L Monocytes % 7.8 Eosinophils % 0.0 Basophils % 0.1 PT with INR 15.40 H INR 1.36 H Sodium 143 Potassium 4.0 Chloride 112 H Carbon Dioxide 27 Anion Gap 4 L BUN 21 H Creatinine 1.0 D Creat Clearance w eGFR Random Glucose 114 H Calcium 7.2 L Phosphorus 2.1 L D Magnesium 2.0 Total Bilirubin AST ALT Alkaline Phosphatase Total Protein Albumin 12/16/17 12/16/17 06:30 06:30 WBC 10.9 H D RBC 4.03 Hgb 10.9 L Hct 33.2 L MCV 82.6 MCH 27.1 MCHC 32.8 RDW 18.8 H Plt Count 161 MPV 8.1 Neutrophils % 88.9 H Lymphocytes % 4.6 L D Monocytes % 6.4 Eosinophils % 0.0 Basophils % 0.1 PT with INR INR Sodium 143 Potassium 3.6 Chloride 109 H Carbon Dioxide 26 Anion Gap 8 BUN 15 D Creatinine 0.8 Creat Clearance w eGFR > 60 Random Glucose 88 D Calcium 7.2 L Phosphorus 2.3 L Magnesium 2.0 Total Bilirubin 0.7 D AST 7 L D ALT 9 L Alkaline Phosphatase 72 Total Protein 5.5 L Albumin 1.8 L ASSESSMENT AND PLAN: 82yo M with no PMHx but has not seen PMD in several years presented with diarrhea and LE swelling for 3 weeks and found to be in afib with RVR in the ER -Rectal mass, ?Adenocarcinoma, with lung nodule -Acute lower GI bleed, from above -Acute blood loss anemia s/p 1 unit PRBC 12/11 -New onset Afib with RVR -Newly diagnosis Cardiomyopathy with EF 35-40% and global hypokinesis of LV -Acute on ?Chronic systolic HF exacerbation -Dysphagia with dysgucia -Poor oral intake -Bilateral pleural effusion with pedal/mesentric edema, suspect multifactorial from poor EF and third spacing from hypoalbuminemia and poor nutritional status -LE edema, likely CHF -Iron deficiency anemia -Hypoalbuminemia Plan: H/h stable, monitor for now. MRI abdomen noted, no concern for metastasis. Follow up with oncology and surgery. CEA noted. HR improved, continue metoprolol 100 mg TID, digoxin 0.125 mg daily, titrate up to 0.25 mg daily if persistently tachycardic, however tachycardia multifactorial. Not a candidate for full dose anti-coagulation currently given rectal mass and ongoing GI bleed. Await cardiac clearance/optimization to address surgical plans. Called Dr. Currie's office to discuss pre-operative cardiac optimization. Advance to solid diet as poor oral intake. HOld off IV lasix for now. Improve nutritional status and lasix prn. Monitor volume status closely. Speech/swallow input noted, no oral thrush. s/p Venofer. Continue oral iron suppl. DVTPPX , heparin with close monitoring, will need to hold if ongoing episodes of bloody diarrhea. dispo pending surgery/oncology/cardiology and tumor staging and further plans. PT eval and encourage OOB while inhouse. Family meeting to address current findings and further plan of care. Palliative care consult to address HCP and advance directives. Plan discussed with patient and nursing in detail, all questions answered.
[2017-12-16] MEDS: AMINO ACIDS/PROTEIN HYDROLYS 30 ML LIQUID.PKT PO SCH ×3 (08:29→17:42)
[2017-12-16] MEDS: DIGOXIN 0.125 MG TABLET (FP) PO SCH (10:13)
[2017-12-16] MEDS: ZINC SULFATE 220 MG CAPSULE (FP) PO SCH (10:13)
[2017-12-16] MEDS: FERROUS SO4 325 MG TABLET (FP) PO SCH ×2 (10:13→21:35)
[2017-12-16] MEDS: HEPARIN NA (PORCINE) 5,000 UNITS/ML 1ML VIAL SQ SCH ×2 (10:14→21:35)
--- NOTE | 2017-12-16 10:51 | PN ---
Progress Note, Physician History of Present Illness: Patient is an 82 yr old man with no significant medical history here today complaining of 2-3 weeks of weakness, shortness of breath, decreased exercise tolerance and diarrhea. He states that he's had chronic diarrhea since returning from [facility]. His daughter states that he does not frequently go to the doctor. He reports having associated edema in his legs bilaterally. He denies chest pain, palpitations. He does not remember feeling acutely worse in the past 48 hours. Denies blood in diarrhea. Endorses fevers, chills, cough. Patient was noted to be in new-onset AFand to have HR in 140s. - Current Medication List Current Medications: Active Medications Acetaminophen (Tylenol -) 650 mg PO Q6H PRN PRN Reason: FEVER Amino Acids (Prosource No Carb Liquid Pkt) 30 ml PO BID@0800,1730 [facility] Last Admin: 12/16/17 08:30 Dose: Not Given Digoxin (Lanoxin -) 0.125 mg PO DAILY [facility] Last Admin: 12/16/17 10:13 Dose: 0.125 mg Ferrous Sulfate (Feosol -) 325 mg PO BID [facility] Last Admin: 12/16/17 10:13 Dose: 325 mg Heparin Sodium (Porcine) (Heparin -) 5,000 unit SQ BID [facility] Last Admin: 12/16/17 10:14 Dose: 5,000 unit Loperamide HCl (Imodium -) 2 mg PO Q8H PRN PRN Reason: DIARRHEA Metoprolol Tartrate (Lopressor Injection -) 5 mg IVPUSH Q4H PRN PRN Reason: TACHYCARDIA Last Admin: 12/07/17 17:45 Dose: 5 mg Metoprolol Tartrate (Lopressor -) 100 mg PO TID [facility] Last Admin: 12/16/17 06:20 Dose: 100 mg Zinc Sulfate (Orazinc -) 220 mg PO DAILY [facility] Last Admin: 12/16/17 10:13 Dose: 220 mg - Objective Vital Signs: Vital Signs Temperature 98.4 F 12/16/17 08:34 Pulse Rate 98 H 12/16/17 10:13 Respiratory Rate 18 12/16/17 08:34 Blood Pressure 111/68 12/16/17 08:34 O2 Sat by Pulse Oximetry (%) 95 12/16/17 08:31 Eyes: Yes: WNL, Conjunctiva Clear, EOM Intact HENT: Yes: WNL, Atraumatic, Normocephalic Neck: Yes: WNL, Supple, Trachea Midline Cardiovascular: Yes: Pulse Irregular Respiratory: Yes: WNL, Regular, CTA Bilaterally Gastrointestinal: Yes: WNL, Normal Bowel Sounds Genitourinary: Yes: WNL Musculoskeletal: Yes: WNL Extremities: Yes: WNL Edema: No Integumentary: Yes: WNL Neurological: Yes: WNL, Alert, Oriented ...Motor Strength: WNL Psychiatric: Yes: WNL Labs: CBC, BMP 12/16/17 06:30 12/16/17 06:30 INR, PTT INR 1.36 (0.82-1.09) H 12/15/17 09:15 Assessment/Plan Problems (1) Anemia Assessment/Plan: Anemia; weight loss. Rectal mass found, carcinoma. Workup in progress. As noted by GI and hematology, no anticoagulation. Code(s): D64.9 - ANEMIA, UNSPECIFIED (2) Atrial fibrillation with RVR Assessment/Plan: HR well controlled. We have added digoxin 0.125mg PO daily for adjunct rate control as BP does not allow addition of Cardizem (LV function also precludes) and patient is on adequate dose of beta jennifer. Off NOAC; unable to restart due to GI bleed, finding of rectal carcinoma. Code(s): I48.91 - UNSPECIFIED ATRIAL FIBRILLATION will d/c telemetry (3) Right bundle branch block (RBBB) Code(s): I45.10 - UNSPECIFIED RIGHT BUNDLE-BRANCH BLOCK (4) Systolic CHF Assessment/Plan: Moderate LV dysfx Continue metoprolol for AF, CHF. Add ACEI (lisinopril 2.5 mg daily) if renal function, BP allow. Discontinued diltiazem (significantly reduced LVEF).
--- NOTE | 2017-12-16 11:00 | PN ---
Progress Note, Physician History of Present Illness: pulmonary alert,nad,-cp,-sob - Current Medication List Current Medications: Active Medications Acetaminophen (Tylenol -) 650 mg PO Q6H PRN PRN Reason: FEVER Amino Acids (Prosource No Carb Liquid Pkt) 30 ml PO BID@0800,1730 [facility] Last Admin: 12/16/17 08:30 Dose: Not Given Digoxin (Lanoxin -) 0.125 mg PO DAILY [facility] Last Admin: 12/16/17 10:13 Dose: 0.125 mg Ferrous Sulfate (Feosol -) 325 mg PO BID [facility] Last Admin: 12/16/17 10:13 Dose: 325 mg Heparin Sodium (Porcine) (Heparin -) 5,000 unit SQ BID [facility] Last Admin: 12/16/17 10:14 Dose: 5,000 unit Loperamide HCl (Imodium -) 2 mg PO Q8H PRN PRN Reason: DIARRHEA Metoprolol Tartrate (Lopressor Injection -) 5 mg IVPUSH Q4H PRN PRN Reason: TACHYCARDIA Last Admin: 12/07/17 17:45 Dose: 5 mg Metoprolol Tartrate (Lopressor -) 100 mg PO TID [facility] Last Admin: 12/16/17 06:20 Dose: 100 mg Zinc Sulfate (Orazinc -) 220 mg PO DAILY [facility] Last Admin: 12/16/17 10:13 Dose: 220 mg - Objective Vital Signs: Vital Signs Temperature 98.4 F 12/16/17 08:34 Pulse Rate 98 H 12/16/17 10:13 Respiratory Rate 18 12/16/17 08:34 Blood Pressure 111/68 12/16/17 08:34 O2 Sat by Pulse Oximetry (%) 95 12/16/17 08:31 Constitutional: Yes: Well Nourished, Calm Eyes: Yes: WNL HENT: Yes: WNL Neck: Yes: WNL Cardiovascular: Yes: Pulse Irregular, S1, S2 Respiratory: Yes: Diminished Gastrointestinal: Yes: Normal Bowel Sounds, Soft Extremities: Yes: WNL Edema: No Labs: CBC, BMP 12/16/17 06:30 12/16/17 06:30 INR, PTT INR 1.36 (0.82-1.09) H 12/15/17 09:15 - ....Imaging Cat Scan: Report Reviewed, Image Reviewed Assessment/Plan Problem List - Problems (1) Lung mass Code(s): R91.8 - OTHER NONSPECIFIC ABNORMAL FINDING OF LUNG FIELD (2) Nodule of right lung Code(s): R91.1 - SOLITARY PULMONARY NODULE (3) Anemia Code(s): D64.9 - ANEMIA, UNSPECIFIED (4) Atrial fibrillation with RVR Code(s): I48.91 - UNSPECIFIED ATRIAL FIBRILLATION (5) Diarrhea Code(s): R19.7 - DIARRHEA, UNSPECIFIED (6) Hypoalbuminemia Code(s): E88.09 - OTH DISORDERS OF PLASMA-PROTEIN METABOLISM, NEC (7) Mass in rectum Code(s): K62.9 - DISEASE OF ANUS AND RECTUM, UNSPECIFIED (8) Right bundle branch block (RBBB) Code(s): I45.10 - UNSPECIFIED RIGHT BUNDLE-BRANCH BLOCK (9) Systolic CHF Code(s): I50.20 - UNSPECIFIED SYSTOLIC (CONGESTIVE) HEART FAILURE Assessment/Plan Will obtain CTS evaluation. Location of the RUL lesion difficult to access by IR needle or standard Bronch Follow pathology O2 as needed thoracentesis for possible diagnostic information DR RAMIREZ
--- NOTE | 2017-12-16 11:05 | PATH ---
Surgical Pathology Report Patient Name: BECKI GATICA [facility]. Rec. #: [id number] /Age/Gender: 1935 (Age: 82) / M Account: [id number] Location: 4 W TELEMETRY U Taken: 12/12/2017 Received: 12/13/2017 Reported: 12/16/2017 Physicians: Alvino Owens M.D. Hiram Marquez M.D., PhD Josefina Bernabe M.D. Specimen(s) Received A: BX DUODENUM B: BX ANTRUM AND BODY C: BX RECTAL MASS Clinical History Anemia, diarrhea Gastritis, rectal mass Final Diagnosis A. DUODENUM, SECOND PORTION, BIOPSY: DUODENAL MUCOSA WITH NO PATHOLOGIC CHANGES. NO HISTOLOGIC EVIDENCE OF GLUTEN SENSITIVE ENTEROPATHY (CELIAC SPRUE) IDENTIFIED. B. STOMACH, ANTRUM AND BODY, BIOPSY: MILD CHRONIC GASTRITIS WITH INTESTINAL METAPLASIA. NO DYSPLASIA IDENTIFIED. IMMUNOSTAIN FOR H. PYLORI IS NEGATIVE. C. 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 Comment: Recommend correlation with clinical and radiologic findings and follow up as clinically indicated. This case was discussed with Dr. Owens on December 16, 2017. Electronically Signed Chaz Salgado M.D. Gross Description A. Received in formalin, labeled "biopsy second portion duodenum" are 2 rios, irregular portions of soft tissue measuring 0.2 cm. in greatest dimension. The specimens are submitted in toto in one cassette. B. Received in formalin, labeled "biopsy antrum and body" are 2 rios, irregular portions of soft tissue measuring 0.1-0.3 cm. in greatest dimension. The specimens are submitted in toto in one cassette. C. Received in formalin, labeled "biopsy rectal mass" are multiple rios, irregular portions of soft tissue measuring 0.1-0.8 cm. in greatest dimension. The largest piece is sectioned and specimens are submitted in toto in one cassette. [facility]/12/13/2017 [facility]/12/13/2017
--- NOTE | 2017-12-16 11:21 | PN ---
Progress Note, Physician History of Present Illness: Asymptomatic. No acute events. 2BMs. Not bleeding. Path results noted and discussed with pathologist. - Current Medication List Current Medications: Active Medications Acetaminophen (Tylenol -) 650 mg PO Q6H PRN PRN Reason: FEVER Amino Acids (Prosource No Carb Liquid Pkt) 30 ml PO BID@0800,1730 [facility] Last Admin: 12/16/17 08:30 Dose: Not Given Digoxin (Lanoxin -) 0.125 mg PO DAILY [facility] Last Admin: 12/16/17 10:13 Dose: 0.125 mg Ferrous Sulfate (Feosol -) 325 mg PO BID [facility] Last Admin: 12/16/17 10:13 Dose: 325 mg Heparin Sodium (Porcine) (Heparin -) 5,000 unit SQ BID [facility] Last Admin: 12/16/17 10:14 Dose: 5,000 unit Loperamide HCl (Imodium -) 2 mg PO Q8H PRN PRN Reason: DIARRHEA Metoprolol Tartrate (Lopressor Injection -) 5 mg IVPUSH Q4H PRN PRN Reason: TACHYCARDIA Last Admin: 12/07/17 17:45 Dose: 5 mg Metoprolol Tartrate (Lopressor -) 100 mg PO TID [facility] Last Admin: 12/16/17 06:20 Dose: 100 mg Zinc Sulfate (Orazinc -) 220 mg PO DAILY [facility] Last Admin: 12/16/17 10:13 Dose: 220 mg - Objective Vital Signs: Vital Signs Temperature 98.4 F 12/16/17 08:34 Pulse Rate 98 H 12/16/17 10:13 Respiratory Rate 18 12/16/17 08:34 Blood Pressure 111/68 12/16/17 08:34 O2 Sat by Pulse Oximetry (%) 95 12/16/17 08:31 Constitutional: Yes: No Distress, Calm, Thin Cardiovascular: No: Bradycardia, Tachycardia Gastrointestinal: Yes: Soft. No: Distention, Melena, Rectal Bleeding, Tenderness Neurological: Yes: Alert Labs: CBC, BMP 12/16/17 06:30 12/16/17 06:30 INR, PTT INR 1.36 (0.82-1.09) H 12/15/17 09:15 Laboratory Last Values WBC 10.9 K/mm3 (4.0-10.0) H D 12/16/17 06:30 RBC 4.03 M/mm3 (4.00-5.60) 12/16/17 06:30 Hgb 10.9 GM/dL (11.7-16.9) L 12/16/17 06:30 Hct 33.2 % (35.4-49) L 12/16/17 06:30 MCV 82.6 fl (80-96) 12/16/17 06:30 MCH 27.1 pg (25.7-33.7) 12/16/17 06:30 MCHC 32.8 g/dl (32.0-35.9) 12/16/17 06:30 RDW 18.8 % (11.9-15.9) H 12/16/17 06:30 Plt Count 161 K/MM3 (134-434) 12/16/17 06:30 MPV 8.1 fl (7.5-11.1) 12/16/17 06:30 Neutrophils % 88.9 % (42.8-82.8) H 12/16/17 06:30 Lymphocytes % 4.6 % (8-40) L D 12/16/17 06:30 Monocytes % 6.4 % (3.8-10.2) 12/16/17 06:30 Eosinophils % 0.0 % (0-4.5) 12/16/17 06:30 Basophils % 0.1 % (0-2.0) 12/16/17 06:30 ESR 15 mm/hr (0-20) 12/10/17 06:18 PT with INR 15.40 SEC (9.98-11.88) H 12/15/17 09:15 INR 1.36 (0.82-1.09) H 12/15/17 09:15 PTT (Actin FS) 49.1 SECONDS (26.9-34.4) H 12/11/17 06:00 D-Dimer 652 ng/ml (0-500) H 12/06/17 19:34 Sodium 143 mmol/L (136-145) 12/16/17 06:30 Potassium 3.6 mmol/L (3.5-5.1) 12/16/17 06:30 Chloride 109 mmol/L (98-107) H 12/16/17 06:30 Carbon Dioxide 26 mmol/L (21-32) 04/16/18 06:30 Anion Gap 8 (8-16) 12/16/17 06:30 BUN 15 mg/dL (7-18) D 12/16/17 06:30 Creatinine 0.8 mg/dL (0.7-1.3) 12/16/17 06:30 Creat Clearance w eGFR > 60 (>60) 12/16/17 06:30 Random Glucose 88 mg/dL (74-106) D 12/16/17 06:30 Lactic Acid 1.9 mmol/L (0.0-2.0) 12/06/17 22:30 Calcium 7.2 mg/dL (8.5-10.1) L 12/16/17 06:30 Phosphorus 2.3 mg/dL (2.5-4.9) L 12/16/17 06:30 Magnesium 2.0 mg/dL (1.8-2.4) 12/16/17 06:30 Iron 9 ug/dL (38-169) L 12/08/17 06:00 TIBC 116 ug/dL (250-450) L 12/08/17 06:00 Iron Saturation 8 % (15-55) L 12/08/17 06:00 Ferritin 53.392 ng/ml (16.4-293.9) 12/08/17 06:00 Total Bilirubin 0.7 mg/dL (0.2-1.0) D 12/16/17 06:30 AST 7 U/L (15-37) L D 12/16/17 06:30 ALT 9 U/L (12-78) L 12/16/17 06:30 Alkaline Phosphatase 72 U/L (45-117) 12/16/17 06:30 Creatine Kinase 36 IU/L (39-308) L 12/06/17 19:34 Troponin I 0.03 ng/ml (0.00-0.05) 12/08/17 06:00 C-Reactive Protein 12.2 MG/DL (0.00-0.3) H 12/10/17 06:18 B-Natriuretic Peptide 77785.79 pg/ml (5-450) H 12/06/17 19:34 Total Protein 5.5 g/dl (6.4-8.2) L 12/16/17 06:30 Albumin 1.8 g/dl (3.4-5.0) L 12/16/17 06:30 Triglycerides 74 mg/dL (35-160) 12/07/17 05:00 Cholesterol 80 mg/dL (50-200) 12/07/17 05:00 Total LDL Cholesterol 52 mg/dL (5-100) 12/07/17 05:00 HDL Cholesterol 23 mg/dL (40-60) L 12/07/17 05:00 Tumor Marker AFP 2.9 ng/ml (0.0-8.3) 12/12/17 06:50 Carcinoembryonic Ag 6.3 ng/mL (0.0-4.7) H 12/13/17 06:32 Gastrin 27 pg/mL (0-115) 12/10/17 06:18 TSH Cancelled 12/06/17 20:10 Urine Color Ksenia 12/06/17 20:56 Urine Appearance Clear 12/06/17 20:56 Urine pH 5.0 (5.0-8.0) 12/06/17 20:56 Ur Specific [place] 1.023 (1.001-1.035) 12/06/17 20:56 Urine Protein 1+ (NEGATIVE) H 12/06/17 20:56 Urine Glucose (UA) Negative (NEGATIVE) 12/06/17 20:56 Urine Ketones Trace (NEGATIVE) H 12/06/17 20:56 Urine Blood Negative (NEGATIVE) 12/06/17 20:56 Urine Nitrite Negative (NEGATIVE) 12/06/17 20:56 Urine Bilirubin 2.0 (<2.0 mg/dL) 12/06/17 20:56 Urine Urobilinogen 4.0 e.u/dl mg/dL (0.2-1.0) 12/06/17 20:56 Ur Leukocyte Esterase Negative (NEGATIVE) 12/06/17 20:56 Urine WBC (Auto) 4 /hpf (3-5) 12/06/17 20:56 Urine RBC (Auto) 3 /hpf (0-3) 12/06/17 20:56 Urine Bacteria Rare /hpf (NONE SEEN) 12/06/17 20:56 Hyaline Casts 3 /lpf 12/06/17 20:56 Urine Mucus Few 12/06/17 20:56 Stool Occult Blood Positive (NEGATIVE) 12/16/17 07:52 Stool O & P Wet [place] (.) 12/07/17 08:00 O & P Permanent Slide Final report (.) 12/07/17 08:00 Blood Type O POSITIVE 12/09/17 12:15 Antibody Screen Negative 12/09/17 12:15 Crossmatch See Detail 12/09/17 12:15 Problem List - Problems (1) Iron deficiency anemia Code(s): D50.9 - IRON DEFICIENCY ANEMIA, UNSPECIFIED (2) Diarrhea Code(s): R19.7 - DIARRHEA, UNSPECIFIED (3) Hematochezia Code(s): K92.1 - MELENA Assessment/Plan Rectal, friable, bleeding mass, pending obstruction, 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 Onc, Sx work up in progress. Family aware. Low residual diet.
[2017-12-16] MEDS ORDERED: NAPH,MB-DB/K PH,MBDB POWDER PACKET PO ONE (12:00)
[2017-12-16] MEDS ORDERED: POTASSIUM PHOSPHATE 30 MM in SODIUM CHLORIDE 500 ML IVPB ONE (14:30)
[2017-12-16 15:37] LABS: BASO % 0.1 % (0-2.0); HEMOGLOBIN 10.6 GM/dL (11.7-16.9); LYMPH % 5.2 % (8-40); MCH 27.4 pg (25.7-33.7); MCHC 33.3 g/dl (32.0-35.9); MEAN CELL VOLUME 82.3 fl (80-96); MONO % 8.4 % (3.8-10.2); NEUT % 86.3 % (42.8-82.8); PLATELET COUNT 155 K/MM3 (134-434); RBC 3.88 M/mm3 (4.00-5.60); RDW 19.6 % (11.9-15.9); WHITE BLOOD COUNT 6.7 K/mm3 (4.0-10.0)
--- NOTE | 2017-12-16 15:43 | CONSULT ---
Consult Consult Specialty:: Thoracic Surgery Referred by:: Pulmonary and Medicine Reason for Consultation:: Lung nodule - History of Present Illness Chief Complaint: 82M p/w diarrhea History of Present Illness: 82M p/w chronic diarrhea, rapid heart rate (new onset afib), sx of heart failure , and found to have a rectal mass. Incidentally found nodule in RUL. Does not appear to be metastases and may not be lung cancer (not thick-walled). No h/o recent weight loss. Did have associated fevers recently. - History Source History Provided By: Patient, Medical Record Limitations to Obtaining History: Poor Historian - Past Medical History Cardio/Vascular: Yes: AFIB Pulmonary: Yes: Other (b/l pleural effusions) - Past Surgical History Additional Surgical History: Cyst removal from his throat - Alcohol/Substance Use Hx Alcohol Use: No History of Substance Use: reports: None - Smoking History Smoking history: Former smoker - Social History History of Recent Travel: Yes Home Medications - Allergies Allergies/Adverse Reactions: Allergies Allergy/AdvReac Type Severity Reaction Status Date / Time No Known Allergies Allergy Verified 12/06/17 18:32 - Home Medications Home Medications: Ambulatory Orders NK [No Known Home Medication] 12/06/17 Family Disease History - Family Disease History Family History: Unremarkable Review of Systems - Review of Systems Constitutional: reports: Fever Gastrointestinal: reports: Other (change in bowel habits recently) Physical Exam Vital Signs: Vital Signs Temperature 98.6 F 12/16/17 14:56 Pulse Rate 89 12/16/17 14:56 Respiratory Rate 22 12/16/17 14:56 Blood Pressure 120/73 12/16/17 14:56 O2 Sat by Pulse Oximetry (%) 95 12/16/17 08:31 Neck: Yes: Other (scar over right neck extending to sternum) Respiratory: Yes: Regular Gastrointestinal: Yes: Soft ...Rectal Exam: Yes: Other (performed by surgical team but found to have mass) Extremities: Yes: Other (b/l mild edema) Labs: CBC, BMP 12/16/17 06:30 Imaging - Results Cat Scan: Image Reviewed (RUL cystic area with thin lining) Problem List - Problems (1) Lung mass Code(s): R91.8 - OTHER NONSPECIFIC ABNORMAL FINDING OF LUNG FIELD (2) Atrial fibrillation with RVR Code(s): I48.91 - UNSPECIFIED ATRIAL FIBRILLATION (3) Swelling of lower extremity Code(s): M79.89 - OTHER SPECIFIED SOFT TISSUE DISORDERS (4) Systolic CHF Code(s): I50.20 - UNSPECIFIED SYSTOLIC (CONGESTIVE) HEART FAILURE Assessment/Plan 82M with likely newly diagnosed rectal cancer, CHF, Afib, ?gastroenteritis, and new lung nodule with cystic component: Recommend w/u of rectal mass Serial imaging as outpatient including PET scan of lung Needs PFTs eventually but would deal with rectal issue first. Bx difficult of this lesions (difficult CT guided and not wedgeable as too close to hilum) so would prefer serial imaging at first. Pt should f/u with me as outpatient and schedule with [phone]. I have spent >45 minutes in this consultation including review of chart, images , and >50% in counseling and coordination of care with patient and physicians like Dr. Brown.
[2017-12-16] MEDS ORDERED: PT OWN MED DRAWER 7, Y5N ONE (16:04)
[2017-12-16 16:06] LABS: PHOSPHOROUS 1.8 mg/dL (2.5-4.9)
--- NOTE | 2017-12-16 17:15 | PN ---
Progress Note, Physician Chief Complaint: rectal mass History of Present Illness: 82 yo male with unknown past medical history, not following PCP, recent immigrant presented to the hospital today complaining of diarrhea that started 3 weeks ago when he was in [facility]. He came 10 days ago and continue to have multiple loose bowel movements. Patient has had poor oral intake, is having intermittent bloody loose stools, has been otherwise stable. He is frustrated with being hospitalized and has no appetite. - Current Medication List Current Medications: Active Medications Acetaminophen (Tylenol -) 650 mg PO Q6H PRN PRN Reason: FEVER Amino Acids (Prosource No Carb Liquid Pkt) 30 ml PO BID@0800,1730 [facility] Last Admin: 12/16/17 08:30 Dose: Not Given Digoxin (Lanoxin -) 0.125 mg PO DAILY [facility] Last Admin: 12/16/17 10:13 Dose: 0.125 mg Ferrous Sulfate (Feosol -) 325 mg PO BID [facility] Last Admin: 12/16/17 10:13 Dose: 325 mg Heparin Sodium (Porcine) (Heparin -) 5,000 unit SQ BID [facility] Last Admin: 12/16/17 10:14 Dose: 5,000 unit Potassium Phosphate 30 mm/ (Sodium Chloride) 510 mls @ 85 mls/hr IVPB ONCE ONE Stop: 12/16/17 20:29 Last Admin: 12/16/17 16:00 Dose: 85 mls/hr Loperamide HCl (Imodium -) 2 mg PO Q8H PRN PRN Reason: DIARRHEA Metoprolol Tartrate (Lopressor Injection -) 5 mg IVPUSH Q4H PRN PRN Reason: TACHYCARDIA Last Admin: 12/07/17 17:45 Dose: 5 mg Metoprolol Tartrate (Lopressor -) 100 mg PO TID [facility] Last Admin: 12/16/17 13:10 Dose: 100 mg Zinc Sulfate (Orazinc -) 220 mg PO DAILY [facility] Last Admin: 12/16/17 10:13 Dose: 220 mg - Objective Vital Signs: Vital Signs Temperature 98.6 F 12/16/17 14:56 Pulse Rate 89 12/16/17 14:56 Respiratory Rate 22 12/16/17 14:56 Blood Pressure 120/73 12/16/17 14:56 O2 Sat by Pulse Oximetry (%) 95 12/16/17 08:31 Vital Signs Period Temp Pulse Resp BP Sys/Slaughter Pulse Ox Last 24 Hr 98.3 F-99.3 F 85-107 18-22 101-120/58-88 93-95 Intake & Output 12/16/17 12/16/17 12/16/17 07:59 15:59 23:59 Intake Total 30 Balance 30 Weight 149 lb 9.6 oz Intake: IV 10 saline lock 10 Oral 20 Other: Voiding Method Bedside Commode Bowel Movement Yes # Bowel Movements 2 Weight Measurement Method Standing Scale Constitutional: Yes: No Distress, Calm, Thin Eyes: Yes: Conjunctiva Clear, EOM Intact HENT: Yes: Atraumatic, Normocephalic Neck: Yes: Supple, Trachea Midline Cardiovascular: Yes: Regular Rate and Rhythm, S1, S2 Respiratory: Yes: Regular, CTA Bilaterally Gastrointestinal: Yes: Normal Bowel Sounds, Soft ...Rectal Exam: Yes: Guaiac Positive, Mass (1 finger). No: Hemorrhoids/External Genitourinary: No: CVA Tenderness - Left, CVA Tenderness - Right Musculoskeletal: Yes: Muscle Weakness Extremities: No: Cool, Cyanosis Edema: Yes Edema: LLE: 1+, RLE: 1+ Peripheral Pulses WNL: Yes Peripheral Pulses: Left Doralis Pedis: 2+, Right Dorsalis Pedis: 2+ Neurological: Yes: Alert, Oriented Psychiatric: Yes: Alert, Oriented Labs: CBC, BMP 12/16/17 15:20 12/16/17 06:30 INR, PTT INR 1.36 (0.82-1.09) H 12/15/17 09:15 Problem List - Problems (1) Mass in rectum Assessment/Plan: 82 yo male with unknown PMH but likely decompensated CHF, untreated Afib with RVR, Anemia and newly diagnosed Rectal Mass, 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 This is likely an invasive cancer that is curretly bleeding intermittently. He is chronically malnourished, Alb 1.8 and when I detailed the surgical options with him he was indifferent, he refused any thoracic intervention. Discussed this with his granddaughter she intended to discuss his goals with him 417 @ 10am. I will be available to discuss this further. Family discussion for goals of care If her deisres surgery he will need better characterization of this tumor 1. EUS with repeat biopsy 2. PEG and tube feeds or PICC hyperalementaion Perhaps he would be better served at a tertiary center, but ONLY if he is agreeable to surgical intervention I will be away 12/18 to 12/22, Dr. Flood will be covering and is aware of the plan Thank you for the opportunity to participate in the care of this patient. Code(s): K62.9 - DISEASE OF ANUS AND RECTUM, UNSPECIFIED (2) Anemia Code(s): D64.9 - ANEMIA, UNSPECIFIED (3) Atrial fibrillation with RVR Code(s): I48.91 - UNSPECIFIED ATRIAL FIBRILLATION (4) Hypoalbuminemia Code(s): E88.09 - [facility] DISORDERS OF PLASMA-PROTEIN METABOLISM, NEC (5) Right bundle branch block (RBBB) Code(s): I45.10 - UNSPECIFIED RIGHT BUNDLE-BRANCH BLOCK (6) Swelling of lower extremity Code(s): M79.89 - OTHER SPECIFIED SOFT TISSUE DISORDERS (7) Systolic CHF Code(s): I50.20 - UNSPECIFIED SYSTOLIC (CONGESTIVE) HEART FAILURE
[2017-12-17] MEDS: METOPROLOL TARTRATE 50 MG TABLET (FP) PO SCH (05:16)
--- NOTE | 2017-12-17 06:38 | PN ---
Physical Exam: SUBJECTIVE: Patient seen and examined by me this AM - No major overnight events; Pt spoke with Dr Hewitt in PM yesterday, plan for transfer to tertiary care center for further w/u and management of colorectal Ca ; Pt still with diarrhea, no further episodes of hematochezia per pt; tolerating PO feeds, able to eat some soup for dinner; Denies f/c/n/v, JENKINS, dizziness, CP, sob, ab pain, back pain, dysuria or neuro symptoms; still with chronic non-productive cough, LE edema - No events on tele; 100-140s Afib OBJECTIVE: Vital Signs Intake & Output 12/14/17 12/15/17 12/16/17 12/17/17 23:59 23:59 23:59 23:59 Intake Total 420 100 40 0 Output Total 200 200 Balance 420 -100 -160 0 Weight 67.857 kg Period Temp Pulse Resp BP Sys/Slaughter Pulse Ox Last 24 Hr 98.4 F-98.9 F 89-110 18-22 110-120/60-74 95-97 GENERAL: Elderly man, NAD, lying in bed HEAD: NCAT, alopecia EYES: PERRL, extraocular movements intact, sclera anicteric, conjunctiva clear. No ptosis. ENT: Ears normal, nares patent, oropharynx clear without exudates, moist mucous membranes. NECK: Trachea midline, full range of motion, supple. LUNGS: Trace upper airway rhonchi and mild expiratory wheezes at bases; no crackles or rhonchi appreciable HEART: IRR IRR, no m/c/g/r ABDOMEN: Scaphoid. Soft, nontender, nondistended, normoactive bowel sounds, no guarding, no rebound, no hepatosplenomegaly, no masses. No CVA tenderness EXTREMITIES: 2+ pulses, warm, well-perfused, 2+ pitting edema to midshank NEUROLOGICAL: Cranial nerves II through XII grossly intact. Normal speech, gait not observed. PSYCH: Normal mood, normal affect. cooperative, interactive SKIN: Warm, dry, normal turgor, no rashes or lesions noted Laboratory Results - last 24 hr CBC, BMP 12/16/17 15:20 12/17/17 06:30 12/16/17 15:20 04/16/18 04/16/18 04/16/18 06:30 06:30 07:52 WBC 10.9 H D RBC 4.03 Hgb 10.9 L Hct 33.2 L MCV 82.6 MCH 27.1 MCHC 32.8 RDW 18.8 H Plt Count 161 MPV 8.1 Neutrophils % 88.9 H Lymphocytes % 4.6 L D Monocytes % 6.4 Eosinophils % 0.0 Basophils % 0.1 Sodium 143 Potassium 3.6 Chloride 109 H Carbon Dioxide 26 Anion Gap 8 BUN 15 D Creatinine 0.8 Creat Clearance w eGFR > 60 Random Glucose 88 D Calcium 7.2 L Phosphorus 2.3 L Magnesium 2.0 Total Bilirubin 0.7 D AST 7 L D ALT 9 L Alkaline Phosphatase 72 Total Protein 5.5 L Albumin 1.8 L Stool Occult Blood Positive 12/16/17 12/16/17 15:20 15:20 WBC 6.7 D RBC 3.88 L Hgb 10.6 L Hct 32.0 L MCV 82.3 MCH 27.4 MCHC 33.3 RDW 19.6 H Plt Count 155 MPV 8.0 Neutrophils % 86.3 H Lymphocytes % 5.2 L Monocytes % 8.4 Eosinophils % 0.0 Basophils % 0.1 Sodium Potassium Chloride Carbon Dioxide Anion Gap BUN Creatinine Creat Clearance w eGFR Random Glucose Calcium Phosphorus 1.8 L D Magnesium 2.0 Total Bilirubin AST ALT Alkaline Phosphatase Total Protein Albumin Stool Occult Blood Active Medications Generic Name Dose Route Start Last Admin Trade Name Freq PRN Reason Stop Dose Admin Acetaminophen 650 mg 12/07/17 02:00 Tylenol - PO Q6H PRN FEVER Amino Acids 30 ml 12/13/17 17:30 12/16/17 17:42 Prosource No Carb Liquid Pkt PO Not Given BID@0800,1730 [facility] Digoxin 0.125 mg 12/14/17 10:00 12/16/17 10:13 Lanoxin - PO 0.125 mg DAILY [facility] Administration Ferrous Sulfate 325 mg 12/14/17 10:00 12/16/17 21:35 Feosol - PO 325 mg BID [facility] Administration Heparin Sodium (Porcine) 5,000 unit 12/13/17 11:00 12/16/17 21:35 Heparin - SQ 5,000 unit BID [facility] Administration Loperamide HCl 2 mg 12/14/17 17:10 Imodium - PO Q8H PRN DIARRHEA Metoprolol Tartrate 5 mg 12/07/17 11:30 04/07/18 17:45 Lopressor Injection - IVPUSH 5 mg Q4H PRN Administration TACHYCARDIA Metoprolol Tartrate 100 mg 12/11/17 14:00 12/17/17 05:16 Lopressor - PO 100 mg TID [facility] Administration Zinc Sulfate 220 mg 12/07/17 11:45 12/16/17 10:13 Orazinc - PO 220 mg DAILY [facility] Administration Microbiology 12/10/17 10:20 Urine - Urine Clean Catch Urine Culture - Final Contaminated: Please Repeat 12/06/17 22:30 Blood - Peripheral Venous Blood Culture - Final NO GROWTH AFTER 5 DAYS INCUBATION 12/06/17 22:30 Blood - Peripheral Venous Blood Culture - Final NO GROWTH AFTER 5 DAYS INCUBATION 12/10/17 10:20 Stool Clostridium difficile Antigen (LUIS) - Final 12/10/17 10:20 Stool Clostridium difficile Toxin Assay - Final 12/07/17 08:00 Stool Salmonella/Shigella Culture - Final NO GROWTH OF SALMONELLA OR SHIGELLA SPECIES OBTAINED 12/07/17 08:00 Stool Campylobacter Culture - Final NO GROWTH OF CAMPYLOBACTER SPECIES OBTAINED 12/07/17 08:00 Stool Yersinia Culture - Final NO GROWTH OF YERSINIA SPECIES OBTAINED 12/07/17 08:00 Stool Vibrio Culture - Final 12/07/17 08:00 Stool Escherichia coli 0157 Culture - Final NO GROWTH OF E COLI 0157 OBTAINED 12/06/17 20:56 Urine - Urine Clean Catch Urine Culture - Final Contaminated: Please Repeat 12/07/17 03:35 Nasopharyngeal Swab Influenza Types A,B Antigen (LUIS) - Final 12/07/17 03:35 Nasopharyngeal Swab - Final CXR 12/06 - Imaging reveals a large heart, sclerotic knob, clips by the thoracic inlet, right base granuloma and some atelectasis with pleural reaction at the left base. There may be some left hilar calcifications. A discrete infiltrate or pneumothorax is not seen. There are degenerative changes. The soft tissues are intact. Follow-up recommended. LE duplex 12/06 - IMPRESSION: No evidence of deep vein thrombosis as above. ECHO 12/09 - LV normal size, EF 35-40% w/ global hypokinesia; RV mildly dilated, function mild to moderately reduced; ZAIRA; mod MR, mild TR, mod , mild AR; no effusions Chest/ab/pelvis CT 12/12 - Chest - 1. Right upper lobe traction bronchiectasis with large semisolid nodular opacity as described above may be primary neoplasm , posttreatment changes from prior neoplasm and/or postinfectious/ postinflammatory. Please correlate clinically and compared to prior chest CT, if available. PET/CT and/or histopathologic correlation may be helpful. 2. Small to moderate-sized lateral layering pleural effusions (left larger than right), with multisegment compressive atelectasis in both lung bases. 3. No evidence of pulmonary metastasis or metastatic lymphadenopathy within the chest. 4. Cardiomegaly. Chest and abdominal wall edema with small volume of free fluid in the abdomen may be secondary to third spacing. Please correlate for CHF exacerbation. Abdomen/pelvis - 1. 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 2. Inhomogeneous enhancement in the right hepatic lobe and hyperenhancement throughout the left hepatic lobe may be attributed to arterial shunting. Lesions in the left hepatic lobe are incompletely characterized. Further evaluation with multiphase contrast-enhanced MRI of the liver is recommended to better evaluate for metastatic disease. 3. Enlarged prostate gland. Please correlate with PSA and physical exam. 4. A 1.6 cm urinary bladder calculus. Circumferentially prominent urinary bladder wall may be attributed to underdistention and/or chronic outlet obstruction. Cystitis is not excluded. ABdominal MRI 12/14 - IMPRESSION: Mildly heterogeneous enhancement of the liver but with no evidence of focal enhancing lesions or restricted diffusion. Scattered hepatic cysts. Left upper renal Pole cysts. Diffuse subcutaneous edema coupled with bilateral moderate pleural effusions in addition to mesenteric and retroperitoneal edema suggestive of third spacing. Cardiomegaly. ASSESSMENT/PLAN: The patient is a 82 year old male with no significant past medical history, not following PCP, that presents to the hospital today complaining of diarrhea that started 3 weeks ago when he was in [facility]. He was found to have new onset of AFib. Now with iron deficiency anemia and BRBPR x2 this admission. Colonoscopy notable for 6cm rectal mass, Onc and general surgery consulted. Plan for staging and possible resection by Dr. Hewitt after pt receives cardiac clearance. #Rectal mass - 6cm mass found on EGD, further characterized on ab/pelvis CT; biopsied by GI, results pending; CT chest/ab/pelvis results as noted above - Onc and surgical referral; ab MRI as noted above - f/u with GI on recommendations - CEA 6.3 - hold all AC except heparin BID - General surgery amenable to resection pending cardiac clearance - Unlikely chemotx candidate given cardiac comorbities, however awaiting further recs - Rad/onc consulted, recs appreciated -CEA elevated at 6.3 - consider PET scan - Will reach out to oncology team on timeline for care (inpt vs. outpt) #New onset of A.Fib- HR well controlled, 100-130s today; ChadsVasc 2; - c/w Lopressor 100mg TID - Cardiology consulted, recs appreciated - tele monitoring - Eliquis held in setting of GI bleed - Hold BB <90 systolic; - digoxin 0.125mg daily per cards recs for now given BP restrictions with cardizem - plan to d/c on Eliquis for snf AC; hold for now - Will require cardiac clearance for possible resection of rectal mass #GI bleed - One episode of mild hematochezia; likely secondary to neoplasm - Serial CBCs - Transfuse at <7 - hold AC - EGD results as mentioned above - monitor for further episodes of hematochezia #RUL/RML lesions - Noted on CT chest - Pulm consulted - consider biopsy or pleural fluid sampling - CT surgery consult #CHF secondary to afib - BNP [id number] on presentation - PO hydration - Strict Is and Os - Cardiology following - monitor UOP, volume status #Enlarged Prostate - CT confirmed - considering sending PSA - outpt urology f/u - monitor for signs of retention #Diarrhea- likely viral; recent hx of sick contact and travel to [facility]; c diff stool studies negative -f/u stool studies; negative to date - gastrin normal, VIP pending - PO hydration - beside commode - Imodium PRN #Hypophosphatemeia - 2.3 today - Repleted with PO kphos - trend #dysgucia/dysphagia - Poor PO intake; 30 Lb loss over past month secondary to neoplasm - c/w zinc sulfate - encourage PO intake - Nutrition eval; consider additional nutritional augmentation #normocytic anemia - likely secondary to rectal mass, chronic GI bleeds - iron 9, TIBC 116, low iron sat, normal ferritin - repeat iron studies in 3 months as outpt #PPX- SCDs HSQ FEN PO hydration Daily lytes Advanced to regular diet Dispo - Tele Plan discussed with attending, Dr. Kevin Tam, PGY1
[2017-12-17 07:21] LABS: ANION GAP 10 (8-16); BLOOD UREA NITROGEN 13 mg/dL (7-18); CALCIUM 7.3 mg/dL (8.5-10.1); CHLORIDE 112 mmol/L (98-107); CO2 23 mmol/L (21-32); CREATININE 0.7 mg/dL (0.7-1.3); GLUCOSE,RANDOM 75 mg/dL (74-106); POTASSIUM 3.7 mmol/L (3.5-5.1); SODIUM 145 mmol/L (136-145)
[2017-12-17 08:57] VITALS: BP 122/79; TEMP 98
[2017-12-17] MEDS: AMINO ACIDS/PROTEIN HYDROLYS 30 ML LIQUID.PKT PO SCH (10:07)
[2017-12-17] MEDS: DIGOXIN 0.125 MG TABLET (FP) PO SCH (10:07)
[2017-12-17] MEDS: HEPARIN NA (PORCINE) 5,000 UNITS/ML 1ML VIAL SQ SCH (10:07)
[2017-12-17] MEDS: FERROUS SO4 325 MG TABLET (FP) PO SCH (10:07)
[2017-12-17 10:08] VITALS: PULSE 74
[2017-12-17] MEDS: ZINC SULFATE 220 MG CAPSULE (FP) PO SCH (10:08)
--- NOTE | 2017-12-17 10:41 | PN ---
Progress Note, Physician History of Present Illness: Patient is an 82 yr old man with no significant medical history here today complaining of 2-3 weeks of weakness, shortness of breath, decreased exercise tolerance and diarrhea. He states that he's had chronic diarrhea since returning from [facility]. His daughter states that he does not frequently go to the doctor. He reports having associated edema in his legs bilaterally. He denies chest pain, palpitations. He does not remember feeling acutely worse in the past 48 hours. Denies blood in diarrhea. Endorses fevers, chills, cough. Patient was noted to be in new-onset AFand to have HR in 140s. - Current Medication List Current Medications: Active Medications Acetaminophen (Tylenol -) 650 mg PO Q6H PRN PRN Reason: FEVER Amino Acids (Prosource No Carb Liquid Pkt) 30 ml PO BID@0800,1730 [facility] Last Admin: 12/17/17 10:07 Dose: 30 ml Digoxin (Lanoxin -) 0.125 mg PO DAILY [facility] Last Admin: 12/17/17 10:07 Dose: 0.125 mg Ferrous Sulfate (Feosol -) 325 mg PO BID [facility] Last Admin: 12/17/17 10:07 Dose: 325 mg Heparin Sodium (Porcine) (Heparin -) 5,000 unit SQ BID [facility] Last Admin: 12/17/17 10:07 Dose: Not Given Loperamide HCl (Imodium -) 2 mg PO Q8H PRN PRN Reason: DIARRHEA Metoprolol Tartrate (Lopressor Injection -) 5 mg IVPUSH Q4H PRN PRN Reason: TACHYCARDIA Last Admin: 12/07/17 17:45 Dose: 5 mg Metoprolol Tartrate (Lopressor -) 100 mg PO TID [facility] Last Admin: 12/17/17 05:16 Dose: 100 mg Zinc Sulfate (Orazinc -) 220 mg PO DAILY [facility] Last Admin: 12/17/17 10:08 Dose: 220 mg - Objective Vital Signs: Vital Signs Temperature 98 F 12/17/17 08:57 Pulse Rate 74 12/17/17 10:07 Respiratory Rate 16 12/17/17 08:57 Blood Pressure 122/79 12/17/17 08:57 O2 Sat by Pulse Oximetry (%) 97 12/16/17 21:00 Eyes: Yes: WNL, Conjunctiva Clear, EOM Intact HENT: Yes: WNL, Atraumatic, Normocephalic Neck: Yes: WNL, Supple, Trachea Midline Cardiovascular: Yes: Pulse Irregular, S1, S2 Respiratory: Yes: WNL, Regular, CTA Bilaterally Gastrointestinal: Yes: WNL, Normal Bowel Sounds Genitourinary: Yes: WNL Musculoskeletal: Yes: WNL Extremities: Yes: WNL Edema: No Integumentary: Yes: WNL Neurological: Yes: WNL, Alert, Oriented ...Motor Strength: WNL Psychiatric: Yes: WNL Labs: CBC, BMP 12/16/17 15:20 12/17/17 06:30 INR, PTT INR 1.36 (0.82-1.09) H 12/15/17 09:15 Assessment/Plan Problems (1) Anemia Assessment/Plan: Anemia; weight loss. Rectal mass found, carcinoma. Workup in progress. As noted by GI and hematology, no anticoagulation. Code(s): D64.9 - ANEMIA, UNSPECIFIED (2) Atrial fibrillation with RVR Assessment/Plan: HR well controlled. We have added digoxin 0.125mg PO daily for adjunct rate control as BP does not allow addition of Cardizem (LV function also precludes) and patient is on adequate dose of beta jennifer. Off NOAC; unable to restart due to GI bleed, finding of rectal carcinoma. Code(s): I48.91 - UNSPECIFIED ATRIAL FIBRILLATION will d/c telemetry (3) Right bundle branch block (RBBB) Code(s): I45.10 - UNSPECIFIED RIGHT BUNDLE-BRANCH BLOCK (4) Systolic CHF Assessment/Plan: Moderate LV dysfx Continue metoprolol for AF, CHF. Add ACEI (lisinopril 2.5 mg daily) if renal function, BP allow. Discontinued diltiazem (significantly reduced LVEF).
--- NOTE | 2017-12-17 12:28 | PN ---
Teaching Attending Note Name of Resident: Saurav Tam ATTENDING PHYSICIAN STATEMENT I saw and evaluated the patient. I reviewed the resident's note and discussed the case with the resident. I agree with the resident's findings and plan as documented. SUBJECTIVE:asymptomatic. states tolerating diet. no CP, SOB, fever, chills, N/V/ C/D OBJECTIVE: Last Vital Signs Temp Pulse Resp BP Pulse Ox 98 F 74 16 122/79 98 12/17/17 08:57 12/17/17 10:07 12/17/17 08:57 12/17/17 08:57 12/17/17 08:00 General NAD CV S1 S2 irregular lungs CTA B/L no wheezing/rales/rhjonchi Abdomen soft NT/ND Extremities 1+ pitting edema ASSESSMENT AND PLAN: 82yo M with no PMH but has not seen PMD in several years presented iwth diarrhea and LE swelling for 3 weeks and found to be in afib with RVR in the ER course complicated by found of friable rectal mass with impending obstruction 1. Afib with RVR- possible induced from infection although can not r/o ischemia. HR now improved. holding anticoagulation at this time with workup for rectal mass. on digoxin/metoprolol. echo showing depressed EF. cardio on board 2. Rectal mass- seen on colonoscopy. with pending obstruction. high suspicion for adenocarcinoma. will need tertiary care center for specialized colorectal surgeon whom is not available here. would benefit from tertiary care center. 3. acute blood loss anemia- s/p 1 unit PRBC this hospital course 4. Cardiomyopathy with global hypokinesis 5. LE swelling- holding diuresis. DAVIE. leg elevation 6. Diarrhea- liekly viral gastroenteritis as recently in [facility] and sick contacts. resolved. 7. Iron def anemia- ferrous sulfate 8. DVT ppx- SCD 9. accepted to [facility] for further workup and treatement of rectal mass in setting of cardiomyopathy. spoke with granddaughter present at bedside all questions answered. her and pt agrees to transfer for further workup
--- NOTE | 2017-12-17 13:02 | PN ---
Progress Note (short form) - Note Progress Note: pt transferred to [facility] per chart and RN..
--- NOTE | 2017-12-17 14:07 | PN ---
Progress Note (short form) - Note Progress Note: The patient was not in the room this morning. Was transferred to [facility] according to nursing documentation. Problem List - Problems (1) Iron deficiency anemia Code(s): D50.9 - IRON DEFICIENCY ANEMIA, UNSPECIFIED (2) Diarrhea Code(s): R19.7 - DIARRHEA, UNSPECIFIED (3) Hematochezia Code(s): K92.1 - MELENA
--- NOTE | 2017-12-17 16:57 | DS ---
Physical Exam: SUBJECTIVE: Patient seen and examined - No major overnight events; Pt spoke with Dr Hewitt in PM yesterday, plan for transfer to tertiary care center for further w/u and management of colorectal Ca ; Pt still with diarrhea, no further episodes of hematochezia per pt; tolerating PO feeds, able to eat some soup for dinner; Denies f/c/n/v, JENKINS, dizziness, CP, sob, ab pain, back pain, dysuria or neuro symptoms; still with chronic non-productive cough, LE edema - No events on tele; 100-140s Afib OBJECTIVE: Vital Signs Intake & Output 12/14/17 12/15/17 12/16/17 12/17/17 23:59 23:59 23:59 23:59 Intake Total 420 100 40 200 Output Total 200 200 Balance 420 -100 -160 200 Weight 67.857 kg 67.302 kg Period Temp Pulse Resp BP Sys/Slaughter Pulse Ox Last 24 Hr 98 F-98.9 F 74-110 16-20 110-122/60-79 97-98 PHYSICAL EXAM GENERAL: Elderly man, NAD, lying in bed HEAD: NCAT, alopecia EYES: PERRL, extraocular movements intact, sclera anicteric, conjunctiva clear. No ptosis. ENT: Ears normal, nares patent, oropharynx clear without exudates, moist mucous membranes. NECK: Trachea midline, full range of motion, supple. LUNGS: Trace upper airway rhonchi and mild expiratory wheezes at bases; no crackles or rhonchi appreciable HEART: IRR IRR, no m/c/g/r ABDOMEN: Scaphoid. Soft, nontender, nondistended, normoactive bowel sounds, no guarding, no rebound, no hepatosplenomegaly, no masses. No CVA tenderness EXTREMITIES: 2+ pulses, warm, well-perfused, 2+ pitting edema to midshank NEUROLOGICAL: Cranial nerves II through XII grossly intact. Normal speech, gait not observed. PSYCH: Normal mood, normal affect. cooperative, interactive SKIN: Warm, dry, normal turgor, no rashes or lesions noted LABS Laboratory Results - last 24 hr CBC, BMP 12/16/17 15:20 12/17/17 06:30 12/17/17 06:30 Sodium 145 Potassium 3.7 Chloride 112 H Carbon Dioxide 23 Anion Gap 10 BUN 13 Creatinine 0.7 Random Glucose 75 Calcium 7.3 L Microbiology 12/10/17 10:20 Urine - Urine Clean Catch Urine Culture - Final Contaminated: Please Repeat 12/06/17 22:30 Blood - Peripheral Venous Blood Culture - Final NO GROWTH AFTER 5 DAYS INCUBATION 12/06/17 22:30 Blood - Peripheral Venous Blood Culture - Final NO GROWTH AFTER 5 DAYS INCUBATION 12/10/17 10:20 Stool Clostridium difficile Antigen (LUIS) - Final 12/10/17 10:20 Stool Clostridium difficile Toxin Assay - Final 12/07/17 08:00 Stool Salmonella/Shigella Culture - Final NO GROWTH OF SALMONELLA OR SHIGELLA SPECIES OBTAINED 12/07/17 08:00 Stool Campylobacter Culture - Final NO GROWTH OF CAMPYLOBACTER SPECIES OBTAINED 12/07/17 08:00 Stool Yersinia Culture - Final NO GROWTH OF YERSINIA SPECIES OBTAINED 12/07/17 08:00 Stool Vibrio Culture - Final 12/07/17 08:00 Stool Escherichia coli 0157 Culture - Final NO GROWTH OF E COLI 0157 OBTAINED 12/06/17 20:56 Urine - Urine Clean Catch Urine Culture - Final Contaminated: Please Repeat 12/07/17 03:35 Nasopharyngeal Swab Influenza Types A,B Antigen (LUIS) - Final 12/07/17 03:35 Nasopharyngeal Swab - Final Imaging: CXR 12/06 - Imaging reveals a large heart, sclerotic knob, clips by the thoracic inlet, right base granuloma and some atelectasis with pleural reaction at the left base. There may be some left hilar calcifications. A discrete infiltrate or pneumothorax is not seen. There are degenerative changes. The soft tissues are intact. Follow-up recommended. LE duplex 12/06 - IMPRESSION: No evidence of deep vein thrombosis as above. ECHO 12/09 - LV normal size, EF 35-40% w/ global hypokinesia; RV mildly dilated, function mild to moderately reduced; ZAIRA; mod MR, mild TR, mod , mild AR; no effusions Chest/ab/pelvis CT 12/12 - Chest - 1. Right upper lobe traction bronchiectasis with large semisolid nodular opacity as described above may be primary neoplasm , posttreatment changes from prior neoplasm and/or postinfectious/ postinflammatory. Please correlate clinically and compared to prior chest CT, if available. PET/CT and/or histopathologic correlation may be helpful. 2. Small to moderate-sized lateral layering pleural effusions (left larger than right), with multisegment compressive atelectasis in both lung bases. 3. No evidence of pulmonary metastasis or metastatic lymphadenopathy within the chest. 4. Cardiomegaly. Chest and abdominal wall edema with small volume of free fluid in the abdomen may be secondary to third spacing. Please correlate for CHF exacerbation. Abdomen/pelvis - 1. 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 2. Inhomogeneous enhancement in the right hepatic lobe and hyperenhancement throughout the left hepatic lobe may be attributed to arterial shunting. Lesions in the left hepatic lobe are incompletely characterized. Further evaluation with multiphase contrast-enhanced MRI of the liver is recommended to better evaluate for metastatic disease. 3. Enlarged prostate gland. Please correlate with PSA and physical exam. 4. A 1.6 cm urinary bladder calculus. Circumferentially prominent urinary bladder wall may be attributed to underdistention and/or chronic outlet obstruction. Cystitis is not excluded. ABdominal MRI 12/14 - IMPRESSION: Mildly heterogeneous enhancement of the liver but with no evidence of focal enhancing lesions or restricted diffusion. Scattered hepatic cysts. Left upper renal Pole cysts. Diffuse subcutaneous edema coupled with bilateral moderate pleural effusions in addition to mesenteric and retroperitoneal edema suggestive of third spacing. Cardiomegaly. Consults: GI - Seen by Dr. Owens Cardiology - Seen by Dr. Ochoa General Surgery - Seen by Dr. Hewitt Pulmonology - Seen by Dr Barnes Ct Surgery - Seen by Dr. Stern Heme/Onc - Seen by Dr. Kinsey [facility] COURSE: Pre-hospital course: The patient is a 82 year old male with no significant past medical history, not following PCP, that presents to the hospital today complaining of diarrhea that started 3 weeks ago when he was in [facility]. He came 10 days ago and continue to have multiple loose bowel movements. He also reports weakness. He denies sick contacts, changing dietary habits. In the emergency room he was found to have rapid atrial fibrillation and fever. He also endorses lower extremity swelling and SOB when walking or climbing stairs that is present for long time. The patient denies chest pain, palpitations, nausea, vomiting, headache, LOC. He denies dysuria, increased frequency, urgency. ER course was notable for: (1)EkG, Cardizem (2)CBC, CMP (3)CXR, [facility] Hospital course: On admission, pt with pulse 144, BP in 90s systolic. EKG notable for afib w/ RVR rate of 145, RBBB, LAD, TWI in anterior leads. Labs notable for BNP 76889~, trop 0.06 (repeat x3 neg), normal TSH, INR 1.5, and Hgb 10.9. UA normal. CXR findings noted above. LE duplex negative for DVTs. Cardizem given 10mg IV x2, metoprolol ordered 100mg daily, received 1L boluse, cardiology consulted, stool studies ordered, ECHO ordered and pt admitted to telemetry floor. Day 2, pt with RVR to 150s intermittently, with BP in 90s systolic. Still with persistent , watery diarrhea. Pt endorse 30lb weight loss over month, odynophagia with eating. Pt started on Toprol XL 100mg BID per cards recs, in addition to Eliquis. Overnight, afib better controlled to 110s-120s, pt received one dose of digoxin due to repeat episode of tachycardia and hypotension. Following day, pt noted to have blood in stool, FOBT +; eliquis held. Iron studies notable for iron deficiency anemia. Start on PO iron, given IV venofer, GI consulted for repeat colonoscopy. Pt started on Cardizem po 30mg TID due to difficult rate control, however d/c'ed the following day due to hypotension. Another episode of BRBPR noted overnight, pt received one unit prbcs. ECHO results as noted above. Gastrin, VIP, c diff studies sent for further evaluation of persistent diarrhea as inpt. Pt received inpt colonoscopy, notable for 6cm rectal mass, multiple biopsies taken. Oncology and general surgery consulted. CEA, AFP and CT chest/abdomen/pelvis taken for staging. CEA elevated at 6.3. CT results as noted above. Pt ordered for abdominal MRI due to inconclusive CT results with suspicious for possible liver mets. MRI suggestive of cystic lesions, less likely to be malignant. Pulm consulted, recommended thoracentesis of pleural fluid and possible bx of lung lesions. Pt started on low dose standing digoxin for afib as pt dropped to 80s systolic. Chemo tx restricted due to cardiac hx; in addition, pt poor surgical candidate given afib w/ CHF and severely reduced EF of 35-40%. Pt recommended for transfer to tertiary care for further management of rectal mass and cardiac conditions per general surgery recommendation. Pt transferred to [facility] on 12/17 with tentative plan for adjuvant chemo tx and possible resection of rec tumor. Hospital course complicated by persistent, poor PO intake and diarrhea, in addition to chronic small volume BRBPR. PT rate persistently in 100s to 130s, afib on Lopressor 100 TID and digoxin 0.125. Date of Admission:12/07/17 Date of Discharge: 12/17/17 Pt is medically stable and cleared for transfer to [facility] for further evaluation of rectal mass and determination of appropriate oncologic/surgical treatment plan for this pt. Minutes to complete discharge: 35 Discharge Summary Reason For Visit: A-FIB Condition: Stable - Instructions Referrals: Devaughn Russ MD [Primary Care Provider] - Disposition: TRANSFER ACUTE CARE/OTHER HOSP - Home Medications Comprehensive Discharge Medication List: Ambulatory Orders NK [No Known Home Medication] 12/06/17 This patient is new to me today: No Emergency Visit: Yes ED Registration Date: 12/07/17 Care time: The patient presented to the Emergency Department on the above date and was hospitalized for further evaluation of their emergent condition. Critical Care patient: No - Discharge Referral Referred to [facility] Med P.C.: No
[2017-12-18 14:17] LABS: VASOACTIVE INTEST, POLYPEPTIDE < 16.8 pg/mL (0.0-58.8)
== END 2017-12-17 13:54 | disposition short-term general hospital (02) | DRG 308 ==
LOC: JER 17:51 → JERBED 12-07 01:33 → UNDOADMIN 12-07 01:54 → J4W 12-07 03:04
PROVIDERS: ADMIT Internal Medicine; ATTEND Internal Medicine
PROC: 30233N1 Transfusion of Nonautologous Red Blood Cells into Peripheral Vein, Percutaneous Approach (ICD-10-PCS; 2017-12-09)
PROC: 0DBP8ZX Excision of Rectum, Via Natural or Artificial Opening Endoscopic, Diagnostic (ICD-10-PCS; 2017-12-12)
PROC: 0DB68ZX Excision of Stomach, Via Natural or Artificial Opening Endoscopic, Diagnostic (ICD-10-PCS; principal; 2017-12-12 13:00)
DX: I48.91 Unspecified atrial fibrillation (principal); I50.23 Acute on chronic systolic (congestive) heart failure; R64 Cachexia; I24.8 Other forms of acute ischemic heart disease; K92.2 Gastrointestinal hemorrhage, unspecified; D62 Acute posthemorrhagic anemia; E46 Unspecified protein-calorie malnutrition; J98.11 Atelectasis; C20 Malignant neoplasm of rectum; Z87.891 Personal history of nicotine dependence; A08.4 Viral intestinal infection, unspecified; I45.10 Unspecified right bundle-branch block; L65.9 Nonscarring hair loss, unspecified; R13.10 Dysphagia, unspecified; D50.9 Iron deficiency anemia, unspecified; I42.9 Cardiomyopathy, unspecified; E88.09 Other disorders of plasma-protein metabolism, not elsewhere classified; K62.9 Disease of anus and rectum, unspecified; R62.7 Adult failure to thrive; Z68.21 Body mass index [BMI] 21.0-21.9, adult; N40.0 Benign prostatic hyperplasia without lower urinary tract symptoms; K29.60 Other gastritis without bleeding; I95.9 Hypotension, unspecified; R91.1 Solitary pulmonary nodule; E83.39 Other disorders of phosphorus metabolism
CPT/HCPCS: 36415; 36430; 71045-TC-FY; 71260-TC; 74177-TC; 74183-TC; 80048; 80053; 80061; 81003; 81015; 82105; 82272; 82378; 82550; 82728; 82941; 83540; 83550; 83605; 83721; 83735; 83880; 84100; 84443; 84484; 84586; 85025; 85027; 85379; 85610; 85651; 85730; 86140; 86850; 86900; 86901; 86922; 87040; 87045; 87046; 87086; 87177; 87209; 87324; 87449; 87804; 88305-TC; 93005; 93010; 93306-TC; 93970-TC; 99285-25; J1644; J1756; J7030; P9038; P9058